=== PATIENT | male | born 1960 | race Caucasian/White ===

== ENCOUNTER → 2020-09-15 | Outpatient (CLI) | payer SELFPAY ==
[~2020-09-15] VITALS: Ht 167.6 cm; Wt 54.1 kg
[~2020-09-15] MED LIST: FEXO180T PO; IBP600T1 PO; LISI20TA2 PO; PARO40TA47 PO; PRM25T PO; RANI150T66 PO
--- NOTE | 2020-09-15 16:07 | Diagnostic Imaging Report ---
INDICATION: HEP C, LIVER DISEASE. TECHNIQUE: Multiple Real-time grayscale sonographic images were obtained of the 4 quadrants of the abdomen. CORRELATION STUDY: None. FINDINGS: Imaging of the abdomen demonstrates the presence of abdominal ascites. An area was reportedly marked in the right lower quadrant by the income tax advisor for purposes of a bedside paracentesis. No radiologist was present. IMPRESSION: Presence of abdominal ascites. Dictated by: Dictated on workstation # [id number]
[2020-09-15 16:39] LABS: AMYLASE,BODY FLUID 31 U/L; GLUCOSE,BODY FLUID 133 MG/DL; TOTAL PROTEIN,BODY FLUID 2.6 G/DL
[2020-09-15 16:49] LABS: LDH,BODY FLUID 77 U/L
[2020-09-15 17:18] LABS: BODY FLUID APPEARENCE SLIGHTLY CLOUDY; BODY FLUID COLOR PALE YELLOW; BODY FLUID SOURCE PERITON
[2020-09-15 17:19] LABS: BODY FLUID RBC COUNT 1700 /uL; BODY FLUID WBC TOTAL COUNT 1977 /uL
[2020-09-15 17:46] LABS: BF OTHER CELLS 0 %; LYMPHOCYTES,BODY FLUID 1 %
--- NOTE | 2020-09-16 01:45 | OPERATIVE REPORT ---
DATE OF SERVICE: 09/15/2020 PREOPERATIVE DIAGNOSIS: Symptomatic abdominal ascites. POSTOPERATIVE DIAGNOSIS: Symptomatic abdominal ascites. PROCEDURE: Ultrasound-guided paracentesis. SURGEON: Radha Parker DO ANESTHESIA: Local. ESTIMATED BLOOD LOSS: Scant. COMPLICATIONS: None. INDICATIONS: The patient is a 59-year-old male with liver disease and symptomatic ascites. He is having some shortness of breath and other symptoms. He wishes to have paracentesis performed. The patient understands risks and benefits of procedure and wished to proceed. Consent was signed and on the chart. DESCRIPTION OF PROCEDURE: The patient was prepped and draped in sterile fashion after ultrasound was used to isolate the best pocket for and drainage. Local anesthetic was infiltrated. An 11 blade scalpel was then used to make a small incision. The [id number] needle and catheter were then advanced through the abdominal wall until straw-colored fluid was withdrawn. The catheter was advanced, and the needle was removed. The 3050 mL of straw-colored fluid was withdrawn. The catheter was then removed, and a sterile bandage was applied. The patient tolerated procedure well without any complications. Job ID: [id number] DocumentID: [id number] Dictated Date: 09/15/2020 17:45:07 Retail Presentation Specialist Date: 09/16/2020 01:44:19 Dictated By: RADHA PARKER DO
== END ==
LOC: RAD 14:54
PROVIDERS: ATTEND Surgery
DX: B19.20 Unspecified viral hepatitis C without hepatic coma (principal)
CPT/HCPCS: 49083; 82150; 82570; 82945; 83615; 84157; 87070; 87075; 87205; 89051; A7048

== ENCOUNTER 2020-12-17 18:43 | Emergency (ER) | payer SELFPAY ==
[~2020-12-17] VITALS: Ht 170.1 cm; Wt 50.0 kg
[2020-12-17 19:00] LABS: BASOPHILS # (AUTO) 0.2 10^3/uL (0.0-0.1); BASOPHILS % (AUTO) 2 % (0-10); EOSINOPHILS # (AUTO) 0.4 10^3/uL (0.0-0.3); EOSINOPHILS % (AUTO) 4 % (0-10); HEMATOCRIT 50 % (40-54); HEMOGLOBIN 16.1 g/dL (13.3-17.7); LYMPHOCYTES # (AUTO) 2.7 10^3/uL (1.0-4.0); LYMPHOCYTES % (AUTO) 24 % (12-44); MEAN CORPUSCULAR HEMOGLOBIN 27 pg (25-34); MEAN CORPUSCULAR HGB CONC 32 g/dL (32-36); MEAN CORPUSCULAR VOLUME 82 fL (80-99); MEAN PLATELET VOLUME 10.8 fL (9.0-12.2); MONOCYTES # (AUTO) 1.2 10^3/uL (0.0-1.0); MONOCYTES % (AUTO) 11 % (0-12); NEUTROPHILS # (AUTO) 6.7 10^3/uL (1.8-7.8); NEUTROPHILS % (AUTO) 59 % (42-75); PLATELET COUNT 334 10^3/uL (130-400); WHITE BLOOD COUNT 11.3 10^3/uL (4.3-11.0)
[2020-12-17] MEDS ORDERED: ASPIRIN 81 MG CHEW (CHILDREN'S ASA) PO ONE (19:00)
--- NOTE | 2020-12-17 19:00 | ED Chest Pain ---
General Chief Complaint: Chest Pain Stated Complaint: INTERMITTENT CP AND ARM PAIN Source: patient Exam Limitations: no limitations History of Present Illness Date Seen by Provider: Dec 17, 2020 Time Seen by Provider: 18:58 Initial Comments to ER by private vehicle with reports of intermittent chest and arm pain. This particular episode began at about 6 PM and is now gone. It resolved without intervention. It was in the center of his chest sharp in nature and lasted only a few minutes. He has had a couple episodes like this over the course of the past few weeks. He cannot identify anything that brings them about or makes them go away. Each episode lasts only a few minutes. No fevers or chills. He does smoke 1/2 pack of cigarettes per day. No history of coronary disease. No nausea vomiting or shortness of breath. Timing/Duration: gone now Severity/Quality: sharp Location: central Radiation: no radiation Activities at Onset: none Allergies and Home Medications Allergies Coded Allergies: No Known Drug Allergies (Unverified , 02/06/10) Home Medications Fexofenadine Hcl 180 Mg Tablet, 180 MG PO DAILY, (Reported) Ibuprofen 600 Mg Tablet, 1 EACH PO QID PRN, (Reported) Lisinopril 20 Mg Tablet, 20 MG PO DAILY, (Reported) Paroxetine Hcl 40 Mg Tablet, 40 MG PO DAILY, (Reported) Promethazine Hcl 25 Mg Tablet, 1 TAB PO QID PRN Prescribed by: FRANCIA YIN on 02/06/102116 Ranitidine Hcl 150 Mg Tablet, 150 MG PO DAILY, (Reported) Patient Home Medication List Home Medication List Reviewed: Yes Review of Systems Review of Systems Constitutional: see HPI; No chills, No fever EENTM: No Symptoms Reported Respiratory: No Symptoms Reported Cardiovascular: See HPI, Chest Pain Gastrointestinal: No Symptoms Reported Genitourinary: No Symptoms Reported Musculoskeletal: no symptoms reported Skin: no symptoms reported Psychiatric/Neurological: No Symptoms Reported Endocrine: No Symptoms Reported Physical Exam Vital Signs Vital Signs - First Documented Capillary Refill : Height, Weight, BMI Height: '" Weight: lbs. oz. kg; 19.25 BMI Method: General Appearance: No Apparent Distress, WD/WN HEENT: PERRL/EOMI, TMs Normal Neck: Full Range of Motion, Normal Inspection Respiratory: No Accessory Muscle Use, No Respiratory Distress Gastrointestinal: Normal Bowel Sounds, Non Tender, Soft Extremity: Normal Capillary Refill, Normal Inspection Neurologic/Psychiatric: Alert, Oriented x3 Skin: Normal Color, Warm/Dry Progress/Results/Core Measures Results/Orders Lab Results Laboratory Tests Test 12/17/20 18:53 12/17/20 18:57 12/17/20 20:55 Range/Units D-Dimer 2.06 H 0.00-0.49 UG/ML White Blood Count 11.3 H 4.3-11.0 10^3/uL Red Blood Count 6.08 H 4.30-5.52 10^6/uL Hemoglobin 16.1 13.3-17.7 g/dL Hematocrit 50 40-54 % Mean Corpuscular Volume 82 80-99 fL Mean Corpuscular Hemoglobin 27 25-34 pg Mean Corpuscular Hemoglobin Concent 32 32-36 g/dL Red Cell Distribution Width 16.7 H 10.0-14.5 % Platelet Count 334 130-400 10^3/uL Mean Platelet Volume 10.8 9.0-12.2 fL Immature Granulocyte % (Auto) 1 % Neutrophils (%) (Auto) 59 42-75 % Lymphocytes (%) (Auto) 24 12-44 % Monocytes (%) (Auto) 11 0-12 % Eosinophils (%) (Auto) 4 0-10 % Basophils (%) (Auto) 2 0-10 % Neutrophils # (Auto) 6.7 1.8-7.8 10^3/uL Lymphocytes # (Auto) 2.7 1.0-4.0 10^3/uL Monocytes # (Auto) 1.2 H 0.0-1.0 10^3/uL Eosinophils # (Auto) 0.4 H 0.0-0.3 10^3/uL Basophils # (Auto) 0.2 H 0.0-0.1 10^3/uL Immature Granulocyte # (Auto) 0.1 0.0-0.1 10^3/uL Prothrombin Time 15.1 H 12.2-14.7 SEC INR Comment 1.2 0.8-1.4 Activated Partial Thromboplast Time 32 24-35 SEC Sodium Level 133 L 135-145 MMOL/L Potassium Level 4.6 3.6-5.0 MMOL/L Chloride Level 104 98-107 MMOL/L Carbon Dioxide Level 21 21-32 MMOL/L Anion Gap 8 5-14 MMOL/L Blood Urea Nitrogen 18 7-18 MG/DL Creatinine 1.36 H 0.60-1.30 MG/DL Estimat Glomerular Filtration Rate 53 BUN/Creatinine Ratio 13 Glucose Level 154 H 70-105 MG/DL Calcium Level 9.5 8.5-10.1 MG/DL Corrected Calcium 9.6 8.5-10.1 MG/DL Magnesium Level 2.2 1.6-2.4 MG/DL Total Bilirubin 0.7 0.1-1.0 MG/DL Aspartate Amino Transf (AST/SGOT) 41 H 5-34 U/L Alanine Aminotransferase (ALT/SGPT) 44 0-55 U/L Alkaline Phosphatase 147 H 40-136 U/L Myoglobin 28.3 10.0-92.0 NG/ML Troponin I < 0.028 < 0.028 <0.028 NG/ML B-Type Natriuretic Peptide 41.5 <100.0 PG/ML Total Protein 8.8 H 6.4-8.2 GM/DL Albumin 3.9 3.2-4.5 GM/DL My Orders Orders - NARINDER PEREZ OIL SCOUT Cbc With Automated Diff (12/17/20 18:49) Magnesium (12/17/20 18:49) Chest 1 View, Ap/Pa Only (12/17/20 18:49) Ekg Tracing (12/17/20 18:49) Comprehensive Metabolic Panel (12/17/20 18:49) Myoglobin Serum (12/17/20 18:49) Protime With Inr (12/17/20 18:49) Partial Thromboplastin Time (12/17/20 18:49) O2 (12/17/20 18:49) Monitor-Rhythm Ecg Trace Only (12/17/20 18:49) Lipid Panel (12/18/20 06:00) Ed Iv/Invasive Line Start (12/17/20 18:49) BNP (12/17/20 18:49) Troponin I (12/17/20 18:49) Aspirin Chewable Tablet (Baby Aspirin Ch (12/17/20 19:00) Fibrin Degradation Products (12/17/20 18:57) Lactated Ringers (Lr 1000 Ml Iv Solution (12/17/20 19:45) Ct Angio Chest W (12/17/20 19:38) Iohexol Injection (Omnipaque 350 Mg/Ml 1 (12/17/20 20:15) Received Contrast (Hold Metformin- Contr (12/17/20 20:15) Ns (Ivpb) (Sodium Chloride 0.9% Ivpb Bag (12/17/20 20:15) Troponin I (12/17/20 20:51) Medications Given in ED Current Medications Medications Dose Ordered Sig/Cresencio Route Start Time Stop Time Status Last Admin Dose Admin Aspirin 324 mg ONCE ONCE PO 12/17/20 19:00 12/17/20 19:01 DC 12/17/20 19:00 324 MG Iohexol 75 ml ONCE ONCE IV 12/17/20 20:15 12/17/20 20:16 DC 12/17/20 20:15 58 ML Sodium Chloride 100 ml ONCE ONCE IV 12/17/20 20:15 12/17/20 20:16 DC 12/17/20 20:15 80 ML Vital Signs/I&O 12/17/20 12/17/20 12/17/20 18:47 18:47 21:34 Temp 36.7 Pulse 89 76 Resp 20 20 B/P (MAP) 160/88 (112) 132/88 Pulse Ox 98 97 O2 Delivery Room Air Room Air Room Air Progress Progress Note : Progress Note NAME: [facility] REC#: [id number] PT STATUS: REG ER : 1960 PHYSICIAN: NARINDER PEREZ APRN ADMIT DATE: 12/17/20/ER Draft Date of Exam:12/17/20 CT ANGIO CHEST W Clinical indication: Patient with chest pain x 3 months. Patient states today it worsened, tonight at about 1830 hours. Patient states that it radiates to left arm and is 10/10. Exam: CT angiogram of the chest performed with 58 cc Omnipaque 350 IV contrast. Coronal and oblique MIP images of the vasculature were created to better evaluate anatomy. Auto Exposure Controls were utilized during the CT exam to meet ALARA standards for radiation dose reduction. Comparison: None. Findings: There is diffuse centrilobular emphysema. There is a 2.2 cm in greatest axial dimension bulla in the upper medial aspect of the right lower lobe. There is no lung infiltrate. There is atelectasis and/or scarring involving the posterior aspects of both lungs. There is no pleural effusion or pneumothorax. Limited visualization of thyroid gland is grossly unremarkable. Mediastinal and hilar lymph nodes are seen which are not significantly enlarged. There is no axillary lymphadenopathy. There is no evidence of pulmonary embolism. There is no thoracic aortic aneurysmal dilation. There is not enough contrast within the thoracic aorta to better evaluate it. Limited visualization of upper abdominal structures shows no significant abnormality. Bones show degenerative spurs involving the thoracic spine. Impression: 1: There is no evidence of pulmonary embolism or thoracic aortic aneurysm. 2: There is diffuse centrilobular emphysematous disease. There is a bulla involving the medial aspect of the right lower lobe. 3: There is no lung infiltrate. There is no pleural effusion or pneumothorax. Dictated on workstation # [id number] Dict: 12/17/202031 Trans: 12/17/[address] [facility] [id number] Interpreted by: KIMBERLEY PALACIOS MD Electronically signed by: Departure Communication (Admissions) EKG shows sinus rhythm rate of [address] segment changes no T wave inversion no ectopy Impression Primary Impression: Chest pain Disposition: 01 HOME, SELF-CARE Condition: Stable Departure-Patient Inst. Decision time for Depature: 21:21 Referrals: [facility] (PCP) Primary Care Physician ROLDAN LIRA APRN (Family) Primary Care Physician Patient Instructions: Chest Pain (DC) Add. Discharge Instructions: 1. Retuern to ER for any concerns 2. Follow up with your doctor next week. All discharge instructions reviewed with patient and/or family. Voiced understanding. NARINDER PEREZ APRN Dec 17, 2020 19:00
[2020-12-17 19:19] LABS: INR 1.2 (0.8-1.4); PROTHROMBIN TIME PATIENT 15.1 SEC (12.2-14.7)
[2020-12-17 19:28] LABS: ALBUMIN 3.9 GM/DL (3.2-4.5); BILIRUBIN,TOTAL 0.7 MG/DL (0.1-1.0); CALCIUM 9.5 MG/DL (8.5-10.1); CREATININE SERUM 1.36 MG/DL (0.60-1.30); MAGNESIUM 2.2 MG/DL (1.6-2.4); POTASSIUM 4.6 MMOL/L (3.6-5.0); TOTAL PROTEIN 8.8 GM/DL (6.4-8.2)
--- NOTE | 2020-12-17 19:33 | Diagnostic Imaging Report ---
INDICATION: Chest pain radiating to left arm EXAMINATION: Chest 12/17/2020 FINDINGS: Small nodularities noted in the periphery of the right upper lung, age indeterminate. Follow-up recommended. There are no infiltrates or effusions. Heart and pulmonary vasculature normal. No pneumothorax. IMPRESSION: 1. Small nodules in the right upper lung. Given no priors available for comparison, follow-up is recommended. Otherwise negative chest. Dictated by: Dictated on workstation # [id number]
[2020-12-17] MEDS ORDERED: LACTATED RINGERS 1,000 ML IV SCH (19:45)
[2020-12-17] MEDS ORDERED: HOLD METFORMIN - RECEIVED CONTRAST 20 ML VIAL IV SCH (20:15)
[2020-12-17] MEDS ORDERED: NS 100 ML (IVPB) BAG IV ONE (20:15)
[2020-12-17] MEDS ORDERED: IOHEXOL 350 MG/ML 100 ML (OMNIPAQUE 350) VIAL IV ONE (20:15)
--- NOTE | 2020-12-17 20:46 | Diagnostic Imaging Report ---
Clinical indication: Patient with chest pain x 3 months. Patient states today it worsened, tonight at about 1830 hours. Patient states that it radiates to left arm and is 10/10. Exam: CT angiogram of the chest performed with 58 cc Omnipaque 350 IV contrast. Coronal and oblique MIP images of the vasculature were created to better evaluate anatomy. Auto Exposure Controls were utilized during the CT exam to meet ALARA standards for radiation dose reduction. Comparison: None. Findings: There is diffuse centrilobular emphysema. There is a 2.2 cm in greatest axial dimension bulla in the upper medial aspect of the right lower lobe. There is no lung infiltrate. There is atelectasis and/or scarring involving the posterior aspects of both lungs. There is no pleural effusion or pneumothorax. Limited visualization of thyroid gland is grossly unremarkable. Mediastinal and hilar lymph nodes are seen which are not significantly enlarged. There is no axillary lymphadenopathy. There is no evidence of pulmonary embolism. There is no thoracic aortic aneurysmal dilation. There is not enough contrast within the thoracic aorta to better evaluate it. Limited visualization of upper abdominal structures shows no significant abnormality. Bones show degenerative spurs involving the thoracic spine. Impression: 1: There is no evidence of pulmonary embolism or thoracic aortic aneurysm. 2: There is diffuse centrilobular emphysematous disease. There is a bulla involving the medial aspect of the right lower lobe. 3: There is no lung infiltrate. There is no pleural effusion or pneumothorax. Dictated by: Dictated on workstation # [id number]
[2020-12-17 21:34] VITALS: BP 132/88
== END 2020-12-17 21:31 | disposition home or self-care (01) ==
LOC: EDUNIT# 18:43 → ER 18:44
DX: R07.9 Chest pain, unspecified (principal); F17.210 Nicotine dependence, cigarettes, uncomplicated
CPT/HCPCS: 36415; 71045; 71275; 80053; 83735; 83874; 83880; 84484; 85025; 85379; 85610; 85730

== ENCOUNTER 2021-11-25 11:54 | Inpatient (IN) | payer SELFPAY ==
[~2021-11-25] VITALS: Ht 170.2 cm; Wt 76.1 kg
[2021-11-25] MEDS ORDERED: PANTOPRAZOLE 40 MG (PROTONIX) VIAL IV ONE (12:15)
[2021-11-25] MEDS ORDERED: ONDANSETRON 4 MG/2 ML (SDV) Z0FRAN IVP ONE (12:15)
[2021-11-25 12:28] LABS: ALBUMIN 3.3 GM/DL (3.2-4.5); CHLORIDE 108 MMOL/L (98-107); POTASSIUM 4.7 MMOL/L (3.6-5.0); SODIUM 137 MMOL/L (135-145)
[2021-11-25 12:29] LABS: CALCIUM 8.5 MG/DL (8.5-10.1)
[2021-11-25 12:30] LABS: BASOPHILS # (AUTO) 0.2 10^3/uL (0.0-0.1); BASOPHILS % (AUTO) 1 % (0-10); EOSINOPHILS # (AUTO) 0.1 10^3/uL (0.0-0.3); EOSINOPHILS % (AUTO) 1 % (0-10); GLUCOSE 123 MG/DL (70-105); HEMATOCRIT 30 % (40-54); HEMOGLOBIN 9.5 g/dL (13.3-17.7); LYMPHOCYTES # (AUTO) 2.3 10^3/uL (1.0-4.0); LYMPHOCYTES % (AUTO) 18 % (12-44); MEAN CORPUSCULAR HEMOGLOBIN 30 pg (25-34); MEAN CORPUSCULAR HGB CONC 32 g/dL (32-36); MEAN CORPUSCULAR VOLUME 95 fL (80-99); MEAN PLATELET VOLUME 13.3 fL (9.0-12.2); MONOCYTES # (AUTO) 1.3 10^3/uL (0.0-1.0); MONOCYTES % (AUTO) 10 % (0-12); NEUTROPHILS # (AUTO) 8.7 10^3/uL (1.8-7.8); NEUTROPHILS % (AUTO) 69 % (42-75); PLATELET COUNT 233 10^3/uL (130-400); TOTAL PROTEIN 6.8 GM/DL (6.4-8.2); WHITE BLOOD COUNT 12.6 10^3/uL (4.3-11.0)
[2021-11-25] MEDS ORDERED: FAMOTIDINE 20MG/2ML IV (PEPCID) IVP ONE (12:30)
[2021-11-25 12:31] LABS: CARBON DIOXIDE 20 MMOL/L (21-32); SMEAR SCAN COMMENT YES
[2021-11-25 12:32] LABS: BILIRUBIN,TOTAL 0.9 MG/DL (0.1-1.0)
[2021-11-25 12:34] LABS: ALKALINE PHOSPHATASE 112 U/L (40-136); CREATININE SERUM 0.83 MG/DL (0.60-1.30); GFR ESTIMATED 99
[2021-11-25 12:35] LABS: BUN/CREATININE RATIO 65; INR 1.3 (0.8-1.4); PROTHROMBIN TIME PATIENT 16.9 SEC (12.2-14.7)
[2021-11-25 12:37] LABS: ALANINE AMINOTRANSFERASE 32 U/L (0-55); LIPASE 63 U/L (8-78)
[2021-11-25] MEDS ORDERED: LACTATED RINGERS 1,000 ML IV ONE (12:42)
--- NOTE | 2021-11-25 13:54 | ED GI ---
General Chief Complaint: Abdominal/GI Problems Stated Complaint: VOMITING BLOOD Nursing Triage Note: PT BROUGHT IN BY [facility] FROM HOME WITH COMPLAINT OF VOMITING BLOOD. STATES STARTED LAST NIGHT. HX OF LIVER DISEASE AND HEP C. STATES HAS SIMILAR EPISIDE ABOUT A YEAR AGO. Source of Information: Patient Exam Limitations: No Limitations History of Present Illness Date Seen by Provider: Nov 25, 2021 Time Seen by Provider: 12:14 Initial Comments This 61-year-old gentleman presents to the emergency room with complaints of coffee-ground emesis and mild abdominal discomfort since last night. He is hypertensive upon presentation. He has history of cirrhosis with hepatitis C and prior alcohol use. He reports alcohol cessation over the past year. He admits to recently smoking marijuana. He is unsure if he has any esophageal varices. I was not able to find any documentation of esophageal varices in either the hospital chart or the clinic chart. Allergies and Home Medications Allergies Coded Allergies: No Known Drug Allergies (Unverified , 02/06/10) Patient Home Medication List Home Medication List Reviewed: Yes Fexofenadine Hcl (Yanira) 180 Mg Tablet, 180 MG PO DAILY, (Reported) Entered as Reported by: REGIS RIVERA on 02/06/101807 Ibuprofen (Motrin) 600 Mg Tablet, 1 EACH PO QID PRN, (Reported) Entered as Reported by: REGIS RIVERA on 02/06/101807 Lisinopril (Lisinopril) 20 Mg Tablet, 20 MG PO DAILY, (Reported) Entered as Reported by: REGIS RIVERA on 02/06/101807 Paroxetine Hcl (Paxil) 40 Mg Tablet, 40 MG PO DAILY, (Reported) Entered as Reported by: REGIS RIVERA on 02/06/101807 Promethazine Hcl (Phenergan 25 Mg) 25 Mg Tablet, 1 TAB PO QID PRN Prescribed by: FRANCIA YIN on 02/06/102116 Ranitidine Hcl (Acid Pocket Assembler) 150 Mg Tablet, 150 MG PO DAILY, (Reported) Entered as Reported by: REGIS RIVERA on 02/06/101807 Review of Systems Review of Systems Constitutional: no symptoms reported EENTM: No Symptoms Reported Respiratory: No Symptoms Reported Cardiovascular: See HPI Gastrointestinal: See HPI Genitourinary: No Symptoms Reported Musculoskeletal: no symptoms reported Skin: no symptoms reported Psychiatric/Neurological: No Symptoms Reported Endocrine: No Symptoms Reported Hematologic/Lymphatic: No Symptoms Reported Past Jwznhph-[id number]-Odmmww Hx Patient Social History Tobacco Use?: Yes Tobacco type used: Cigarettes Smoking Status: Current Everyday Smoker Use of E-Cig and/or Vaping dev: No Substance use?: Yes Substance type: Marijuana Alcohol Use?: No (Quit drinking in 2020) Pt feels they are or have been: No Immunizations Up To Date First/Initial COVID19 Vaccinat: October 20, 2020 Second COVID19 Vaccination Macario: October 20, 2020 Third COVID19 Vaccination Date: October 20, 2020 Past Medical History Surgeries: No (None reported) Respiratory: No Cardiac: No Neurological: No Genitourinary: No Gastrointestinal: Yes Hepatitis (Hepatitis C), Cirrhosis Musculoskeletal: No Endocrine: No HEENT: No Cancer: No Psychosocial: No Physical Exam Vital Signs Vital Signs - First Documented 11/25/21 11:56 Temp 35.7 Pulse 103 Resp 16 B/P (MAP) 99/84 (89) Pulse Ox 97 O2 Delivery Room Air Capillary Refill : Less Than 3 Seconds Height/Weight/BMI Height: '" Weight: lbs. oz. kg; 19.00 BMI Method: General Appearance: WD/WN, no apparent distress, thin HEENT: PERRL/EOMI, normal ENT inspection Neck: normal inspection Respiratory: lungs clear, normal breath sounds, no respiratory distress Cardiovascular: regular rate, rhythm, no edema, no murmur Gastrointestinal: normal bowel sounds, soft, tenderness (Mild, generalized) Extremities: normal inspection, no pedal edema Neurologic/Psychiatric: no motor/sensory deficits, alert, normal mood/affect, oriented x 3 Skin: normal color, warm/dry Progress/Results/Core Measures Results/Orders Lab Results Laboratory Tests Test 11/25/21 12:02 Range/Units White Blood Count 12.6 H 4.3-11.0 10^3/uL Red Blood Count 3.12 L 4.30-5.52 10^6/uL Hemoglobin 9.5 L 13.3-17.7 g/dL Hematocrit 30 L 40-54 % Mean Corpuscular Volume 95 80-99 fL Mean Corpuscular Hemoglobin 30 25-34 pg Mean Corpuscular Hemoglobin Concent 32 32-36 g/dL Red Cell Distribution Width 16.1 H 10.0-14.5 % Platelet Count 233 130-400 10^3/uL Mean Platelet Volume 13.3 H 9.0-12.2 fL Immature Granulocyte % (Auto) 1 % Neutrophils (%) (Auto) 69 42-75 % Lymphocytes (%) (Auto) 18 12-44 % Monocytes (%) (Auto) 10 0-12 % Eosinophils (%) (Auto) 1 0-10 % Basophils (%) (Auto) 1 0-10 % Neutrophils # (Auto) 8.7 H 1.8-7.8 10^3/uL Lymphocytes # (Auto) 2.3 1.0-4.0 10^3/uL Monocytes # (Auto) 1.3 H 0.0-1.0 10^3/uL Eosinophils # (Auto) 0.1 0.0-0.3 10^3/uL Basophils # (Auto) 0.2 H 0.0-0.1 10^3/uL Immature Granulocyte # (Auto) 0.2 H 0.0-0.1 10^3/uL Percent Immature Platelet Fraction 10.0 H 0.0-7.6 % Prothrombin Time 16.9 H 12.2-14.7 SEC INR Comment 1.3 0.8-1.4 Sodium Level 137 135-145 MMOL/L Potassium Level 4.7 3.6-5.0 MMOL/L Chloride Level 108 H 98-107 MMOL/L Carbon Dioxide Level 20 L 21-32 MMOL/L Anion Gap 9 5-14 MMOL/L Blood Urea Nitrogen 54 H 7-18 MG/DL Creatinine 0.83 0.60-1.30 MG/DL Estimat Glomerular Filtration Rate 99 BUN/Creatinine Ratio 65 Glucose Level 123 H 70-105 MG/DL Calcium Level 8.5 8.5-10.1 MG/DL Corrected Calcium 9.1 8.5-10.1 MG/DL Total Bilirubin 0.9 0.1-1.0 MG/DL Aspartate Amino Transf (AST/SGOT) 36 H 5-34 U/L Alanine Aminotransferase (ALT/SGPT) 32 0-55 U/L Alkaline Phosphatase 112 40-136 U/L Total Protein 6.8 6.4-8.2 GM/DL Albumin 3.3 3.2-4.5 GM/DL Lipase 63 8-78 U/L Serum Alcohol < 10 <10 MG/DL Smear Scan YES My Orders Orders - SHARON NUNEZ MD Red Cells Leukocytes Reduced (11/25/21 12:14) Alcohol (11/25/21 12:14) Cbc With Automated Diff (11/25/21 12:14) Comprehensive Metabolic Panel (11/25/21 12:14) Lipase (11/25/21 12:14) Protime With Inr (11/25/21 12:14) Ua Culture If Indicated (11/25/21 12:14) Ondansetron Injection (Zofran Injectio (11/25/21 12:15) Pantoprazole Injection (Protonix Injecti (11/25/21 12:15) Famotidine Injection (Pepcid Injection) (11/25/21 12:30) Type And Screen (11/25/21 12:14) Lactated Ringers (Lr 1000 Ml Iv Solution (11/25/21 12:42) Ed Admission (Communication) (11/25/21 13:33) Medications Given in ED Current Medications Medications Dose Ordered Sig/Cresencio Route Start Time Stop Time Status Last Admin Dose Admin Famotidine 20 mg ONCE ONCE IVP 11/25/21 12:30 11/25/21 12:31 DC 11/25/21 12:41 20 MG Lactated Ringer's 1,000 ml @ STK-MED ONCE IV 11/25/21 12:42 11/25/21 12:44 DC 11/25/21 12:45 1,000 MLS/HR Ondansetron HCl 8 mg ONCE ONCE IVP 11/25/21 12:15 11/25/21 12:17 DC 11/25/21 12:41 8 MG Pantoprazole 80 mg ONCE ONCE IV 11/25/21 12:15 11/25/21 12:17 DC 11/25/21 12:42 80 MG Vital Signs/I&O 11/25/21 11:56 Temp 35.7 Pulse 103 Resp 16 B/P (MAP) 99/84 (89) Pulse Ox 97 O2 Delivery Room Air Blood Pressure Mean: 89 Progress Progress Note : Progress Note Blood pressure resuscitated to an acceptable level with 1 L of LR. He was additionally treated with Protonix 80 mg IV and Pepcid 20 mg IV for suspected gastritis and/or ulcer. Zofran was given for nausea and vomiting. I discussed the situation with Dr. Sofia. He said the nature of this bleed is more likely to be gastritis, esophagitis, and/or ulcer rather than from an esophageal varices. He is willing to admit the patient here as patient has expressed a strong desire to not be transferred. I discussed with Dr. Sutton as well who is willing to accept the patient. I discussed CODE STATUS with the patient and he is requesting full code. Departure Communication (Admissions) Time/Spoke to Admitting Phy: 13:30 Dr. Sutton Time/Spoke to Consulting Phy: 13:15 Dr. Sofia Impression Primary Impression: Upper GI bleed Additional Impressions: Hypotension Qualified Codes: I95.89 - Other hypotension; E86.1 - Hypovolemia Anemia Qualified Codes: D64.9 - Anemia, unspecified Liver cirrhosis Qualified Codes: K74.60 - Unspecified cirrhosis of liver Disposition: ADMITTED INPATIENT Condition: Stable Admissions Decision to Admit Reason: Admit from ER (General) Decision to Admit/Date: Nov 25, 2021 Time/Decision to Admit Time: 13:15 Departure-Patient Inst. Referrals: [facility] (PCP) Primary Care Physician ROLDAN LIRA APRN (Family) Primary Care Physician SHARON NUNEZ MD Nov 25, 2021 13:54
[2021-11-25 14:19] LABS: BILIRUBIN,URINE NEGATIVE (NEGATIVE); CLARITY,URINE CLEAR; COLOR,URINE YELLOW; GLUCOSE, URINE (UA) NEGATIVE (NEGATIVE); KETONES,URINE NEGATIVE (NEGATIVE); LEUKOCYTE ESTERASE ,URINE NEGATIVE (NEGATIVE); NITRITE,URINE NEGATIVE (NEGATIVE); PROTEIN,URINE NEGATIVE (NEGATIVE)
[2021-11-25 14:30] VITALS: BP 104/65
[2021-11-25] MEDS ORDERED: morphine INJ 4 MG/ML 1 ML (VIAL/SYRINGE) IV PRN (14:30)
[2021-11-25] MEDS ORDERED: ANTACID SUSP 30 ML UDC (MYLANTA) PO PRN (14:30)
[2021-11-25] MEDS ORDERED: MILK OF MAGNESIA 400 MG/5 ML 30 ML UDC PO PRN (14:30)
[2021-11-25] MEDS ORDERED: diphenhydrAMINE 50 MG/ML INJ (BENADRYL) IVP PRN (14:30)
[2021-11-25] MEDS ORDERED: polyethylene glycoL POWDER 17 GM (MIRALAX) PACK PO PRN (14:30)
[2021-11-25] MEDS ORDERED: diphenhydrAMINE 25 MG TAB (BENADRYL) PO PRN (14:30)
[2021-11-25] MEDS ORDERED: BISACODYL 10 MG SUPP (DULCOLAX) PR PRN (14:30)
[2021-11-25] MEDS ORDERED: CALCIUM CARBONATE 500 MG (TUMS) TAB.CHEW PO PRN (14:30)
[2021-11-25] MEDS ORDERED: ONDANSETRON 4 MG (ZOFRAN) ORAL DISSOLVE TAB PO PRN (14:30)
[2021-11-25] MEDS ORDERED: LACTULOSE SYRUP 10GM/15ML (ENULOSE) 30ML UDC PO PRN (14:30)
[2021-11-25] MEDS ORDERED: ACETAMINOPHEN 325 MG TABLET PO PRN (14:30)
[2021-11-25] MEDS ORDERED: LIDOCAINE UROJET 2% GEL 10 ML PKG TOP ONE (14:30)
[2021-11-25] MEDS ORDERED: ONDANSETRON 4 MG/2 ML (SDV) Z0FRAN IV PRN (14:30)
[2021-11-25] MEDS: NS IV 1000 ML 1,000 ML IV SCH (14:55)
[2021-11-25 14:59] LABS: BACTERIA,URINE NEGATIVE /HPF
[2021-11-25 15:00] VITALS: BP 96/69
[2021-11-25 15:30] VITALS: BP 103/66
--- NOTE | 2021-11-25 16:14 | CONSULTATION REPORT ---
DATE OF SERVICE: 11/25/2021 ATTENDING COSMETIC SALES ADVISOR: [facility]. HISTORY OF PRESENT ILLNESS: The patient is a 61-year-old male, who presented to the Emergency Department with coffee ground emesis as well as some mild abdominal discomfort. This gentleman does have an extensive past medical history including liver cirrhosis secondary to hepatitis C as well as alcohol abuse. He states that he quit alcohol approximately one year ago. He does smoke cigarettes and also does use THC. He does not report ever having an upper GI endoscopy before in the past. He states that the coffee ground emesis was of a small volume. There was no red blood or any hematemesis involved. Likely etiology of the coffee ground emesis is most likely due to peptic ulcer disease. The patient will be admitted and monitored and we will also proceed with an EGD on this admission. PAST MEDICAL HISTORY: Hepatitis C and alcoholic liver cirrhosis. PAST SURGICAL HISTORY: None. ALLERGIES: No known drug allergies. MEDICATIONS: Fexofenadine 100 mg daily, lisinopril 20 mg daily, paroxetine 40 mg daily, promethazine 25 mg q.i.d. p.r.n., ranitidine 150 mg daily, and ibuprofen 600 mg q.i.d. p.r.n. SOCIAL HISTORY: Positive cigarette smoke 40 pack years, positive marijuana. Previous heavy alcohol abuse, quit one year ago. FAMILY HISTORY: Noncontributory. REVIEW OF SYSTEMS: This is a well-nourished male currently in no acute distress. He is not experiencing any shortness of breath or difficulty in breathing. No chest pain, palpitations, diaphoresis. He did have an episode of nausea with coffee ground material, no hematemesis. He only had one episode. He does not report any red blood per rectum nor any dark tarry stools. No fever, chills, no recent inadvertent weight loss. All other review of systems negative. PHYSICAL EXAMINATION: VITAL SIGNS: Temperature 35.7, blood pressure 99/84, pulse 103, respirations 16, and pulse ox 97% on room air. CHEST: Scattered wheezes and rhonchi bilaterally. HEART: Regular, no murmurs. EXTREMITIES: No lower extremity edema and negative Homans sign. HEENT: No scleral icterus. NECK: No cervical lymphadenopathy. ABDOMEN: Soft, slightly distended, mild discomfort in the epigastric region. No peritoneal signs. No hernias. SKIN: Warm and dry. LABORATORY DATA: WBC 12.6, hemoglobin 9.5, hematocrit 30, platelets 233, BUN 54, creatinine 0.83, total bilirubin 0.9, and INR 1.3. ASSESSMENT AND PLAN: A 61-year-old male with a coffee ground emesis and history of hepatitis C as well as alcohol-induced liver cirrhosis. He will be admitted, placed on IV fluids, clear liquid diet as well as a PPI acid java web architect. On this admission, we will also proceed with an EGD to evaluate the cause of the upper gastrointestinal bleeding as well as the possibility of esophageal varices. If significant esophageal varices are identified, he will need to eventually see a cement contractor, who does do esophageal banding, which is the first line treatment for prevention of catastrophic esophageal bleeding. Job ID: [id number] DocumentID: [id number] Dictated Date: 11/25/2021 15:59:55 Health Services Manager Date: 11/25/2021 16:13:43 Dictated By: BANDAR GAONA MD
[2021-11-25] MEDS ORDERED: RT-ALBUTEROL SULF 2.5 MG/3 ML PRE-MIX VIAL INH PRN (16:45)
[2021-11-25] MEDS: MELATONIN 3 MG TABLET PO PRN (22:05)
[2021-11-25] MEDS: PANTOPRAZOLE 40 MG (PROTONIX) VIAL IV SCH (22:05)
[2021-11-25] MEDS: SENNOSIDES 8.6 MG (SENOKOT) TAB PO SCH (22:06)
[2021-11-25] MEDS: DOCUSATE SODIUM 100 MG (COLACE) CAP PO SCH (22:06)
[2021-11-25 23:57] LABS: HEMOGLOBIN 6.7 g/dL (13.3-17.7)
[2021-11-26] MEDS ORDERED: NS IV 500 ML 500 ML IV SCH (00:15)
[2021-11-26 00:44] VITALS: BP 101/64
[2021-11-26 01:01] VITALS: BP 109/57
[2021-11-26 05:44] LABS: BASOPHILS # (AUTO) 0.2 10^3/uL (0.0-0.1); BASOPHILS % (AUTO) 1 % (0-10); EOSINOPHILS % (AUTO) 0 % (0-10); HEMATOCRIT 24 % (40-54); HEMOGLOBIN 7.9 g/dL (13.3-17.7); LYMPHOCYTES # (AUTO) 1.8 10^3/uL (1.0-4.0); LYMPHOCYTES % (AUTO) 12 % (12-44); MEAN CORPUSCULAR HEMOGLOBIN 31 pg (25-34); MEAN CORPUSCULAR HGB CONC 34 g/dL (32-36); MEAN CORPUSCULAR VOLUME 92 fL (80-99); MONOCYTES # (AUTO) 1.1 10^3/uL (0.0-1.0); MONOCYTES % (AUTO) 7 % (0-12); NEUTROPHILS % (AUTO) 79 % (42-75); PLATELET COUNT 189 10^3/uL (130-400); WHITE BLOOD COUNT 15.3 10^3/uL (4.3-11.0)
[2021-11-26] MEDS: NS IV 1000 ML 1,000 ML IV SCH ×2 (05:45→07:49)
[2021-11-26 05:46] LABS: ALBUMIN 2.7 GM/DL (3.2-4.5)
[2021-11-26 05:47] LABS: POTASSIUM 4.5 MMOL/L (3.6-5.0)
[2021-11-26 05:49] LABS: TOTAL PROTEIN 5.5 GM/DL (6.4-8.2)
[2021-11-26 05:51] LABS: BILIRUBIN,TOTAL 0.8 MG/DL (0.1-1.0)
[2021-11-26 05:52] LABS: CREATININE SERUM 0.91 MG/DL (0.60-1.30)
--- NOTE | 2021-11-26 06:00 | History & Physical-Hospitalist ---
History of Present Illness HPI/Chief Complaint Chief complaint: Hematemesis History of present illness: This is a 61-year-old male known alcoholic with cirrhosis and questionable esophageal varices who presented to the ER with hematemesis and anemia. 2 units were crossed and held and he received 1 unit this morning. Currently he is doing better no more hematemesis and proton pump inhibitor maintained. Dr. GAONA will perform EGD tomorrow. Alcohol withdrawal protocol maintained. Source: patient Exam Limitations: clinical condition Date Seen 11/26/21 Time Seen by a Provider: 09:00 Attending Physician [place] PCP Admitting Physician: Juliette Sutton DO Attending Physician: Juliette Sutton DO Referring Physician Date of Admission Nov 25, 2021 at 13:34 Home Medications & Allergies Home Medications Reviewed patient Home Medication Reconciliation performed by pharmacy medication reconciliations fleet technician and/or nursing. Patients Allergies have been reviewed. Allergies Allergies Coded Allergies No Known Drug Allergies (Unverified02/06/10) Past Pyctykw-Fkqsdn-Xewwqb Hx Patient Social History Marrital Status: single Employed/Student: unemployed Tobacco Use?: Yes Tobacco type used: Cigarettes Smoking Status: Current Everyday Smoker Smokeless Tobacco Frequency: Never a User Use of E-Cig and/or Vaping dev: No Substance use?: No Substance type: Marijuana Alcohol Use?: Yes Additional Alcohol Comments: PAST HX Pt feels they are or have been: No Immunizations Up To Date First/Initial COVID19 Vaccinat: October 20, 2020 Second COVID19 Vaccination Macario: October 20, 2020 Tetanus Booster (TDap): Less Than 5 Years Current Status Advance Directives: No Communicates: Verbally Primary Language: German Preferred Spoken Language: German Is interpretation needed?: No Past Medical History Hepatitis (Hepatitis C), Cirrhosis Review of Systems Constitutional: see HPI, malaise, weakness Gastrointestinal: hematemesis, melena Physical Exam Physical Exam Vital Signs Vital Signs - First Documented 11/25/21 11:56 Temp 35.7 Pulse 103 Resp 16 B/P (MAP) 99/84 (89) Pulse Ox 97 O2 Delivery Room Air Capillary Refill : Less Than 3 Seconds Height, Weight, BMI Height: '" Weight: lbs. oz. kg; 19.40 BMI Method: General Appearance: No Apparent Distress, Chronically ill Eyes: Right Eye Normal Inspection, Right Eye PERRL HEENT: PERRL/EOMI, Normal ENT Inspection, Pharynx Normal, Moist Mucous Membranes Neck: Full Range of Motion, Normal Inspection, Non Tender Respiratory: Chest Non Tender, Lungs Clear, Normal Breath Sounds, No Accessory Muscle Use, No Respiratory Distress Cardiovascular: Regular Rate, Rhythm, No Edema, No Gallop, No JVD, No Murmur, Normal Peripheral Pulses Gastrointestinal: Normal Bowel Sounds, No Organomegaly, No Pulsatile Mass, Non Tender, Soft Back: Normal Inspection, No CVA Tenderness, No Vertebral Tenderness Extremity: Normal Capillary Refill, Normal Inspection, Normal Range of Motion, Non Tender, No Calf Tenderness, No Pedal Edema Neurologic/Psychiatric: Alert, Oriented x3, No Motor/Sensory Deficits, Normal Mood/Affect Skin: Normal Color, Warm/Dry Lymphatic: No Adenopathy Results Results/Procedures Labs Laboratory Tests 11/25/21 12:02 11/25/21 23:50 11/26/21 05:05 11/26/21 11:50 Patient resulted labs reviewed. Assessment/Plan Admission Diagnosis Assessment: Hematemesis Severe anemia requiring transfusion Tachycardia Mild hypotension Known cirrhosis Presumed esophageal varices Plan: Transfuse as needed Appreciate general surgery Admission Status: Observation Diagnosis/Problems Diagnosis/Problems (1) Upper GI bleed (2) Liver cirrhosis Status: Acute Qualifiers: Hepatic cirrhosis type: unspecified hepatic cirrhosis Ascites presence: without ascites Qualified Codes: K74.60 - Unspecified cirrhosis of liver Clinical Quality Measures DVT/VTE Risk/Contraindication: Contraindications-Pharm: Other *list below* Other: JULIETTE Serrano DO Nov 26, 2021 06:00
[2021-11-26 06:10] LABS: BASOPHILS % (MANUAL) 1 %; LYMPHOCYTES % (MANUAL) 10 %; METAMYELOCYTES % 1 %; MONOCYTES % (MANUAL) 6 %; NEUTROPHILS % (MANUAL) 82 %
[2021-11-26 06:11] LABS: ANISOCYTOSIS SLIGHT; MICROCYTOSIS SLIGHT; PLATELET CLUMPS NONE SEEN; PLATELET ESTIMATE DECREASED; POLYCHROMASIA SLIGHT
[2021-11-26] MEDS: SENNOSIDES 8.6 MG (SENOKOT) TAB PO SCH ×2 (07:49→20:59)
[2021-11-26] MEDS: PANTOPRAZOLE 40 MG (PROTONIX) VIAL IV SCH ×2 (07:49→20:59)
[2021-11-26] MEDS: DOCUSATE SODIUM 100 MG (COLACE) CAP PO SCH ×2 (07:49→20:59)
[2021-11-26 08:00] VITALS: BP 114/56
--- NOTE | 2021-11-26 11:11 | Progress Note ---
Subjective Date Seen by a Provider: Nov 26, 2021 Time Seen by a Provider: 10:30 Subjective/Events-last exam doing ok. no episodes nausea/vomiting. no BM. hb decrease however may be dilutional. pt given PRBC. Objective Exam Vital Signs Date Time Temp Pulse Resp B/P (MAP) Pulse Ox O2 Delivery O2 Flow Rate FiO2 11/26/21 09:00 99 Room Air 11/26/21 08:00 36.4 89 114/56 (75) 100 Room Air 11/26/21 07:53 Room Air 11/26/21 07:00 82 11/26/21 05:49 99 Room Air 11/26/21 04:00 36.4 11/26/21 01:01 36.1 113 18 109/57 100 Room Air 11/26/21 01:00 120 11/26/21 00:44 36.1 121 18 101/64 100 Room Air 11/26/21 00:00 36.6 11/25/21 21:00 99 Room Air 11/25/21 20:00 36.6 11/25/21 19:00 95 11/25/21 15:30 85 22 103/66 (85) 98 11/25/21 15:00 99 24 96/69 (75) 100 Room Air 11/25/21 14:43 88 11/25/21 14:30 36.4 85 24 104/65 (82) 97 Room Air 11/25/21 14:29 99 Room Air 11/25/21 14:10 74 24 106/60 99 Room Air 11/25/21 11:56 35.7 103 16 99/84 (89) 97 Room Air I & O 11/26/21 07:00 Intake Total 1425 ml Output Total 900 ml Balance 525 ml Capillary Refill : Less Than 3 Seconds General Appearance: No Apparent Distress HEENT: PERRL/EOMI Neck: Full Range of Motion Respiratory: Decreased Breath Sounds, Wheezing Cardiovascular: Regular Rate, Rhythm Gastrointestinal: normal bowel sounds, non tender, soft Extremity: Normal Capillary Refill Neurologic/Psychiatric: Alert, Oriented x3 Skin: Normal Color Lymphatic: No Adenopathy Results Lab Laboratory Tests 11/25/21 12:02: White Blood Count 12.6H, Red Blood Count 3.12L, Hemoglobin 9.5L, Hematocrit 30L, Mean Corpuscular Volume 95, Mean Corpuscular Hemoglobin 30, Mean Corpuscular Hemoglobin Concent 32, Red Cell Distribution Width 16.1H, Platelet Count 233, Mean Platelet Volume 13.3H, Immature Granulocyte % (Auto) 1, Neutrophils (%) (A uto) 69, Lymphocytes (%) (Auto) 18, Monocytes (%) (Auto) 10, Eosinophils (%) (Auto) 1, Basophils (%) (Auto) 1, Neutrophils # (Auto) 8.7H, Lymphocytes # (Auto) 2.3, Monocytes # (Auto) 1.3H, Eosinophils # (Auto) 0.1, Basophils # (Auto) 0.2H, Immature Granulocyte # (Auto) 0.2H, Percent Immature Platelet Fraction 10.0H, Prothrombin Time 16.9H, INR Comment 1.3, Sodium Level 137, Potassium Level 4.7, Chloride Level 108H, Carbon Dioxide Level 20L, Anion Gap 9, Blood Urea Nitrogen 54H, Creatinine 0.83, Estimat Glomerular Filtration Rate 99, BUN/Creatinine Ratio 65, Glucose Level 123H, Calcium Level 8.5, Corrected Calcium 9.1, Total Bilirubin 0.9, Aspartate Amino Transf (AST/SGOT) 36H, Alanine Aminotransferase (ALT/SGPT) 32, Alkaline Phosphatase 112, Total Protein 6.8, Albumin 3.3, Lipase 63, Serum Alcohol < 10, Smear Scan YES 11/25/21 14:13: Urine Color YELLOW, Urine Clarity CLEAR, Urine pH 6.0, Urine Specific [place] <=1.005, Urine Protein NEGATIVE, Urine Glucose (UA) NEGATIVE, Urine Ketones NEGATIVE, Urine Nitrite NEGATIVE, Urine Bilirubin NEGATIVE, Urine Urobilinogen 0.2, Urine Leukocyte Esterase NEGATIVE, Urine RBC (Auto) NEGATIVE, Urine RBC NONE, Urine WBC NONE, Urine Crystals NONE, Urine Bacteria NEGATIVE, Urine Casts NONE, Urine Mucus NEGATIVE, Urine Culture Indicated NO 11/25/21 23:50: Hemoglobin 6.7#*L, Hematocrit 20*L 11/26/21 05:05: White Blood Count 15.3H, Red Blood Count 2.55L, Hemoglobin 7.9L, Hematocrit 24L, Mean Corpuscular Volume 92, Mean Corpuscular Hemoglobin 31, Mean Corpuscular Hemoglobin Concent 34, Red Cell Distribution Width 15.9H, Platelet Count 189, Mean Platelet Volume 13.0H, Immature Granulocyte % (Auto) 1, Neutrophils (%) (Auto) 79H, Lymphocytes (%) (Auto) 12, Monocytes (%) (Auto) 7, Eosinophils (%) (Auto) 0, Basophils (%) (Auto) 1, Neutrophils # (Auto) 12.0H, Lymphocytes # (Auto) 1.8, Monocytes # (Auto) 1.1H, Eosinophils # (Auto) 0.0, Basophils # (Auto) 0.2H, Immature Granulocyte # (Auto) 0.2H, Sodium Level 138, Potassium Level 4.5, Chloride Level 112H, Carbon Dioxide Level 19L, Anion Gap 7, Blood Urea Nitrogen 42H, Creatinine 0.91, Estimat Glomerular Filtration Rate 95, BUN/Creatinine Ratio 46, Glucose Level 124H, Calcium Level 8.0L, Corrected Ca lcium 9.0, Total Bilirubin 0.8, Aspartate Amino Transf (AST/SGOT) 32, Alanine Aminotransferase (ALT/SGPT) 24, Alkaline Phosphatase 84, Total Protein 5.5L, Albumin 2.7L, Neutrophils % (Manual) 82, Lymphocytes % (Manual) 10, Monocytes % (Manual) 6, Basophils % (Manual) 1, Metamyelocytes % 1, Smudge Cells SLIGHT, Platelet Estimate DECREASED, Clumped Platelets NONE SEEN, Polychromasia SLIGHT, Anisocytosis SLIGHT, Microcytosis SLIGHT Assessment/Plan Assessment/Plan Assess & Plan/Chief Complaint UGIB with hx liver cirrhosis and anemia. PPI bid. EGD tomorrow. Clinical Quality Measures DVT/VTE Risk/Contraindication: Contraindications-Pharm: Other *list below* Other: BANDAR Cho MD Nov 26, 2021 11:11
[2021-11-26 11:47] VITALS: BP 110/50
[2021-11-26 12:00] LABS: HEMOGLOBIN 7.6 g/dL (13.3-17.7)
--- NOTE | 2021-11-26 12:42 | Progress Note-Pre Operative ---
Pre-Operative Progress Note H&P Reviewed The H&P was reviewed, patient examined and no changes noted. Date Seen by Provider: Nov 26, 2021 Time Seen by Provider: 12:40 Date H&P Reviewed: Nov 26, 2021 Time H&P Reviewed: 12:40 Pre-Operative Diagnosis: upper GI bleed with hx liver cirrhosis BANDAR GAONA MD Nov 26, 2021 12:42
[2021-11-26] MEDS ORDERED: 1/2 NS IV SOLUTION 1,000 ML IV PRN (16:00)
[2021-11-26] MEDS ORDERED: LORazepam INJ 2 MG/ML (ATIVAN) VIAL IM/IV PRN (16:00)
[2021-11-26] MEDS ORDERED: LORazepam INJ 2 MG/ML (ATIVAN) VIAL IV PRN (16:00)
[2021-11-26] MEDS ORDERED: D5 1/2 NS 1000 ML IV SOLUTION 1,000 ML IV PRN (16:00)
[2021-11-26 16:08] VITALS: BP 100/59
[2021-11-26] MEDS: LORazepam 1 MG (ATIVAN) TAB PO PRN (16:17)
[2021-11-26 20:09] VITALS: BP 97/67
[2021-11-26] MEDS: MAGNESIUM OXIDE (MAG-OX)400 MG TAB PO SCH (20:59)
[2021-11-27] VITALS (12 sets, daily range): BP systolic 89–104; BP diastolic 51–62
[2021-11-27 06:11] LABS: BASOPHILS % (AUTO) 1 % (0-10); MONOCYTES % (AUTO) 11 % (0-12)
[2021-11-27 06:13] LABS: BASOPHILS # (AUTO) 0.1 10^3/uL (0.0-0.1); EOSINOPHILS # (AUTO) 0.4 10^3/uL (0.0-0.3); EOSINOPHILS % (AUTO) 3 % (0-10); LYMPHOCYTES # (AUTO) 1.6 10^3/uL (1.0-4.0); LYMPHOCYTES % (AUTO) 13 % (12-44); MEAN CORPUSCULAR HEMOGLOBIN 31 pg (25-34); MEAN CORPUSCULAR HGB CONC 33 g/dL (32-36); MEAN CORPUSCULAR VOLUME 94 fL (80-99); MEAN PLATELET VOLUME 13.3 fL (9.0-12.2); MONOCYTES # (AUTO) 1.4 10^3/uL (0.0-1.0); NEUTROPHILS % (AUTO) 71 % (42-75); PLATELET COUNT 159 10^3/uL (130-400); WHITE BLOOD COUNT 12.6 10^3/uL (4.3-11.0)
[2021-11-27 06:15] LABS: HEMOGLOBIN 6.4 g/dL (13.3-17.7)
[2021-11-27 06:16] LABS: HEMATOCRIT 19 % (40-54)
[2021-11-27 06:23] LABS: ALBUMIN 2.6 GM/DL (3.2-4.5)
[2021-11-27 06:25] LABS: CALCIUM 7.7 MG/DL (8.5-10.1)
[2021-11-27 06:26] LABS: TOTAL PROTEIN 5.2 GM/DL (6.4-8.2)
[2021-11-27 06:28] LABS: BILIRUBIN,TOTAL 0.7 MG/DL (0.1-1.0)
[2021-11-27 06:30] LABS: CREATININE SERUM 0.84 MG/DL (0.60-1.30)
[2021-11-27] MEDS ORDERED: NS IV 500 ML 500 ML ONE (06:34)
--- NOTE | 2021-11-27 07:00 | Progress Note - Hospitalist ---
Subjective HPI/CC On Admission Date Seen by Provider: Nov 27, 2021 Time Seen by Provider: 10:00 Chief complaint: Hematemesis History of present illness: This is a 61-year-old male known alcoholic with cirrhosis and questionable esophageal varices who presented to the ER with hematemesis and anemia. 2 units were crossed and held and he received 1 unit this morning. Currently he is doing better no more hematemesis and proton pump inhibitor maintained. Dr. GAONA will perform EGD tomorrow. Alcohol withdrawal protocol maintained. Subjective/Events-last exam Patient undergoing EGD Transfusion initiated today Alcohol withdrawal protocol initiated Objective Exam Vital Signs Vital Signs Date Time Temp Pulse Resp B/P (MAP) Pulse Ox O2 Delivery O2 Flow Rate FiO2 11/27/21 15:43 36.3 79 18 104/62 (76) 97 Room Air 11/27/21 12:00 10 Capillary Refill : Less Than 3 Seconds General Appearance: Chronically ill Results/Procedures Lab Laboratory Tests 11/27/21 05:29 Patient resulted labs reviewed. Assessment/Plan Assessment and Plan Assess & Plan/Chief Complaint Assessment: Hematemesis Severe anemia requiring transfusion Tachycardia Mild hypotension Known cirrhosis Presumed esophageal varices Plan: Transfuse as needed Appreciate general surgery 11/27/2021: Appreciate Dr. Gaona Await EGD findings Diagnosis/Problems Diagnosis/Problems (1) Upper GI bleed (2) Liver cirrhosis Status: Acute Qualifiers: Hepatic cirrhosis type: unspecified hepatic cirrhosis Ascites presence: without ascites Qualified Codes: K74.60 - Unspecified cirrhosis of liver Clinical Quality Measures DVT/VTE Risk/Contraindication: Contraindications-Pharm: Other *list below* Other: CAROL Serrano DO Nov 27, 2021 07:00
[2021-11-27] MEDS: THIAMINE 100 MG (VITAMIN B-1) TAB PO SCH (07:02)
[2021-11-27] MEDS: MULTIVIT W/MINERALS TAB (THERAGRAN M) PO SCH (07:02)
[2021-11-27] MEDS: PANTOPRAZOLE 40 MG (PROTONIX) VIAL IV SCH ×2 (09:46→20:45)
[2021-11-27] MEDS: FOLIC ACID 1 MG TAB PO SCH (09:46)
[2021-11-27] MEDS: MAGNESIUM OXIDE (MAG-OX)400 MG TAB PO SCH ×2 (09:46→20:45)
[2021-11-27] MEDS: DOCUSATE SODIUM 100 MG (COLACE) CAP PO SCH ×2 (09:46→21:00)
[2021-11-27] MEDS: SENNOSIDES 8.6 MG (SENOKOT) TAB PO SCH ×2 (09:46→21:00)
[2021-11-27] MEDS ORDERED: PROPOFOL INJECTION 50 ML IV ONE (11:27)
[2021-11-27] MEDS ORDERED: LACTATED RINGERS 1,000 ML IV ONE (11:29)
[2021-11-27] MEDS ORDERED: LACTATED RINGERS 1,000 ML IV STA (11:31)
[2021-11-27] MEDS ORDERED: HURRICAINE EXT TUBE (BENZOCAINE) ONE (11:34)
[2021-11-27] MEDS ORDERED: LIDOCAINE JELLY 2% 6 ML SYRINGE ONE (11:37)
[2021-11-27] MEDS ORDERED: LIDOCAINE JELLY 2% 6 ML SYRINGE TOP ONE (11:45)
[2021-11-27] MEDS ORDERED: HURRICAINE EXT TUBE (BENZOCAINE) XX PRN (11:45)
--- NOTE | 2021-11-27 12:04 | Progress Note-Post Operative ---
Post-Operative Progess Note Surgeon (s)/Butting Saw Operator (s) Surgeon BANDAR GAONA MD Butting Saw Operator: none Pre-Operative Diagnosis upper GI bleed with hx liver cirrhosis Post-Operative Diagnosis grade 2 esophageal varices with no active bleed, reflux esophagitis(grade C), small HH(2.5cm), severe gastritis, no active bleed Procedure & Operative Findings Date of Procedure 11/27/21 Procedure Performed/Findings EGD with bx. Anesthesia Type mac Estimated Blood Loss Estimated blood loss (mL): minimal Specimens/Packing Specimens Removed antrum BANDAR GAONA MD Nov 27, 2021 12:04
[2021-11-27] MEDS: LORazepam 1 MG (ATIVAN) TAB PO PRN (13:39)
--- NOTE | 2021-11-27 14:10 | Anesthesia-General Post-Op ---
MAC Patient Condition Mental Status/LOC: Same as Preop Cardiovascular: Satisfactory Nausea/Vomiting: Absent Respiratory: Satisfactory Pain: Controlled Complications: Absent Post Op Complications Complications None Follow Up Care/Instructions Patient Instructions None needed. Anesthesiology Discharge Order Discharge Order Patient is doing well, no complaints, stable vital signs, no apparent adverse anesthesia problems. No complications reported per nursing. IKER MARSHALL CRNA Nov 27, 2021 14:10
--- NOTE | 2021-11-27 19:52 | OPERATIVE REPORT ---
DATE OF SERVICE: 11/27/2021 ADMITTING PHYSICIAN: Dr. Sutton. PREOPERATIVE DIAGNOSES: Coffee ground emesis, anemia, history of alcoholic and hepatitis C, liver cirrhosis. POSTOPERATIVE DIAGNOSES: Grade II esophageal varices, no active bleeding. Reflux esophagitis grade C, small hiatal hernia 2.5 cm in size, severe gastritis, no active bleeding. PROCEDURE: EGD with biopsy. SURGEON: Bandar Gaona MD ANESTHESIA: Monitored anesthesia care. ESTIMATED BLOOD LOSS: Minimal. FINDINGS: Grade II esophageal varices, no active bleeding. Reflux esophagitis grade C, small hiatal hernia 2.5 cm in size, severe gastritis, no active bleeding. DISPOSITION: The patient tolerated the procedure well. INDICATIONS: The patient is a 61-year-old male who presented with nausea, vomiting as well as coffee ground emesis. He was found to be slightly anemic with a hemoglobin around 9. He has a known history of alcoholic as well as hepatitis C, liver cirrhosis. He does not report any known red blood per rectum as well as no dark tarry stools. DESCRIPTION OF PROCEDURE: The patient was brought to the endoscopy suite, laid in the left lateral decubitus position. After adequate IV pain and sedative medications and monitored anesthesia care, the mouthpiece was applied. The endoscope was placed in the mouth, visualizing the pharynx and hypopharyngeal region. Vocal cords, epiglottis and vallecula identified and appeared to be normal. The endoscope was then gently intubated at the esophageal opening and esophagus insufflated. The endoscope was then advanced through the first, second and third portion of esophagus. At the distal esophagus, grade II esophageal varices less than third of the diameter of the esophagus were identified, which were not actively bleeding. A reflux esophagitis Hiller grade C was identified. The endoscope was then advanced in the stomach and endoscope retroflexed, visualizing a small hiatal hernia approximately 2.5 cm in size. There was a severe gastritis; however, no formal ulcerations, polyps, or any active bleeding identified. A biopsy was taken of the antrum to rule out H. pylori with visualization of good hemostasis. Endoscope was then advanced to the pylorus and the first and second portion of the duodenum with a moderate duodenitis also identified; however, no ulcers or any active bleeding. The endoscope was then slowly withdrawn while taking a second look and suctioning of residual air with no additional findings. The patient tolerated the procedure well. He is likely anemic due to his chronic disease; however, also due to his gastritis, which is being treated with IV PPI, which he will also need to continue in a oral form as an outpatient. He currently does have grade II esophageal varices and at some point will likely need further evaluation and treatment, which would include esophageal banding to prevent catastrophic bleeding. Job ID: [id number] DocumentID: [id number] Dictated Date: 11/27/2021 11:56:10 Plant Senior Manager Date: 11/27/2021 19:52:21 Dictated By: BANDAR GAONA MD MTDD
[2021-11-27] MEDS: MELATONIN 3 MG TABLET PO PRN (20:51)
[2021-11-28] VITALS: BP 91/50
[2021-11-28 04:29] VITALS: BP 90/56
[2021-11-28] MEDS: THIAMINE 100 MG (VITAMIN B-1) TAB PO SCH (05:48)
[2021-11-28] MEDS: MULTIVIT W/MINERALS TAB (THERAGRAN M) PO SCH (05:48)
[2021-11-28 06:09] LABS: BASOPHILS # (AUTO) 0.1 10^3/uL (0.0-0.1); BASOPHILS % (AUTO) 1 % (0-10); EOSINOPHILS # (AUTO) 0.5 10^3/uL (0.0-0.3); EOSINOPHILS % (AUTO) 5 % (0-10); HEMATOCRIT 25 % (40-54); HEMOGLOBIN 8.4 g/dL (13.3-17.7); LYMPHOCYTES # (AUTO) 1.8 10^3/uL (1.0-4.0); LYMPHOCYTES % (AUTO) 17 % (12-44); MEAN CORPUSCULAR HEMOGLOBIN 31 pg (25-34); MEAN CORPUSCULAR HGB CONC 33 g/dL (32-36); MEAN CORPUSCULAR VOLUME 93 fL (80-99); MEAN PLATELET VOLUME 11.9 fL (9.0-12.2); MONOCYTES # (AUTO) 1.3 10^3/uL (0.0-1.0); MONOCYTES % (AUTO) 12 % (0-12); NEUTROPHILS # (AUTO) 6.9 10^3/uL (1.8-7.8); NEUTROPHILS % (AUTO) 65 % (42-75); PLATELET COUNT 157 10^3/uL (130-400); WHITE BLOOD COUNT 10.7 10^3/uL (4.3-11.0)
[2021-11-28 06:20] LABS: ALBUMIN 2.7 GM/DL (3.2-4.5); POTASSIUM 3.8 MMOL/L (3.6-5.0)
[2021-11-28 06:21] LABS: CALCIUM 7.8 MG/DL (8.5-10.1)
[2021-11-28 06:23] LABS: TOTAL PROTEIN 5.6 GM/DL (6.4-8.2)
[2021-11-28 06:24] LABS: BILIRUBIN,TOTAL 0.8 MG/DL (0.1-1.0)
[2021-11-28 06:26] LABS: CREATININE SERUM 0.95 MG/DL (0.60-1.30)
[2021-11-28 07:15] VITALS: BP 109/61
[2021-11-28] MEDS: PANTOPRAZOLE 40 MG (PROTONIX) VIAL IV SCH (08:28)
[2021-11-28] MEDS: MAGNESIUM OXIDE (MAG-OX)400 MG TAB PO SCH (08:29)
[2021-11-28] MEDS: FOLIC ACID 1 MG TAB PO SCH (08:29)
[2021-11-28] MEDS: DOCUSATE SODIUM 100 MG (COLACE) CAP PO SCH (08:32)
[2021-11-28] MEDS: SENNOSIDES 8.6 MG (SENOKOT) TAB PO SCH (08:32)
[2021-11-28] MEDS ORDERED: NICOTINE PATCH REMOVAL TP SCH (08:59)
[2021-11-28] MEDS ORDERED: NICOTINE 21 MG (NICODERM) PATCH TD SCH (09:00)
[2021-11-28] MEDS ORDERED: PANT40TA52 PO (10:15)
[2021-11-28] MEDS ORDERED: SPIR100T4 PO (10:15)
[2021-11-28] MEDS ORDERED: NF-RIFA200 PO (10:16)
[2021-11-28] MEDS ORDERED: ACET-2267 PO (10:16)
[2021-11-28 11:50] VITALS: BP 102/59
[2021-11-28 12:44] LABS: HEMOGLOBIN 9.1 g/dL (13.3-17.7)
--- NOTE | 2021-11-28 13:41 | Discharge Summary ---
Discharge Summary Hospital Course Hospital Course Date of Admission: Nov 25, 2021 at 13:34 Admission Diagnosis : GI bleeding Cirrhosis Hep C [facility] [place] Date of Discharge: 11/28/21 Discharge Diagnosis: Gastritis Esophageal varices Hospital Course: Pt admitted and received transfusion for anemia with upper GI bleeding. He had EGD done which showed no active bleeding, but severe gastritis and grade 2 esophageal varices. He had stable hemoglobin and requested discharge, reported he had not been taking PPI at home, instructed to resume. Did not start nonselective beta dl for varices due to low BP. Labs and Pending Lab Test: Laboratory Tests 11/28/21 06:01: White Blood Count 10.7, Red Blood Count 2.70L, Hemoglobin 8.4#L, Hematocrit 25L, Mean Corpuscular Volume 93, Mean Corpuscular Hemoglobin 31, Mean Corpuscular Hemoglobin Concent 33, Red Cell Distribution Width 17.1H, Platelet Count 157, Mean Platelet Volume 11.9, Immature Granulocyte % (Auto) 1, Neutrophils (%) (Auto) 65, Lymphocytes (%) (Auto) 17, Monocytes (%) (Auto) 12, Eosinophils (%) (Auto) 5, Basophils (%) (Auto) 1, Neutrophils # (Auto) 6.9, Lymphocytes # (Auto) 1.8, Monocytes # (Auto) 1.3H, Eosinophils # (Auto) 0.5H, Basophils # (Auto) 0.1, Immature Granulocyte # (Auto) 0.2H, Sodium Level 136, Potassium Level 3.8, Chloride Level 107, Carbon Dioxide Level 22, Anion Gap 7, Blood Urea Nitrogen 23H, Creatinine 0.95, Estimat Glomerular Filtration Rate 90, BUN/Creatinine Ratio 24, Glucose Level 107H, Calcium Level 7.8L, Corrected Calcium 8.8, Total Bilirubin 0.8, Aspartate Amino Transf (AST/SGOT) 30, Alanine Aminotransferase (ALT/SGPT) 22, Alkaline Phosphatase 79, Total Protein 5.6L, Albumin 2.7L 11/28/21 12:35: Hemoglobin 9.1L, Hematocrit 28L Home Meds Active Reported Tylenol Extra Strength (Acetaminophen) 500 Mg Tablet 500 Mg PO Q8H PRN Xifaxan (Rifaximin) 200 Mg Tablet 600 Mg PO BID TAKES 3 (200MG) TABS Spironolactone 100 Mg Tablet 100 Mg PO DAILY Pantoprazole Sodium 40 Mg Tablet.dr 40 Mg PO DAILY Assessment/Pt DC Instructions Follow up with Dr. Garcia within a week of discharge Discharge Diet: No Restrictions Activity as Tolerated: Yes Discharge Physical Examination Allergies: Coded Allergies: No Known Drug Allergies (Unverified , 02/06/10) General Appearance: No Apparent Distress Respiratory: Lungs Clear, Normal Breath Sounds Cardiovascular: Regular Rate, Rhythm, No Murmur Gastrointestinal: Normal Bowel Sounds, Non Tender, Soft Neurologic/Psychiatric: Alert, Depressed Affect Clinical Quality Measures DVT/VTE Risk/Contraindication: Contraindications-Pharm: Other *list below* Other: TRACIE Orozco MD Nov 28, 2021 13:41
--- NOTE | 2021-11-28 13:47 | Discharge Summary ---
Discharge [facility] Discharge Medications Continued Medications: Acetaminophen (Tylenol Extra Strength) 500 Mg Tablet 500 MG PO Q8H PRN for PAIN-MILD (1-4), TAB Pantoprazole Sodium (Pantoprazole Sodium) 40 Mg Tablet.dr 40 MG PO DAILY, TAB Rifaximin (Xifaxan) 200 Mg Tablet 600 MG PO BID, TAB TAKES 3 (200MG) TABS Spironolactone (Spironolactone) 100 Mg Tablet 100 MG PO DAILY, TAB Patient Instructions Goal/Follow Up Appt: Follow up with Dr. Garcia within a week of discharge. Return to The Hospital For: Dizziness, vomiting blood, shortness of breath, confusion Activity & Diet Discharge Diet: No Restrictions Activity as Tolerated: Yes TRACIE VYAS MD Nov 28, 2021 13:46
[2021-11-28 15:34] VITALS: BP 102/59
--- NOTE | 2021-11-28 15:42 | Progress Note ---
Subjective Date Seen by a Provider: Nov 28, 2021 Time Seen by a Provider: 15:25 Subjective/Events-last exam Patient seen with Dr. Sofia. Patient reports doing well. Denies any heartburn or reflux. Tolerating diet. Objective Exam Vital Signs Date Time Temp Pulse Resp B/P (MAP) Pulse Ox O2 Delivery O2 Flow Rate FiO2 11/28/21 15:34 37.0 82 18 102/59 97 Room Air 11/28/21 11:50 37.0 82 18 102/59 (73) 97 Room Air 11/28/21 09:00 Room Air 11/28/21 07:15 37.1 78 20 109/61 (77) 96 Room Air 11/28/21 04:29 37.2 81 18 90/56 (67) 98 Room Air 11/28/21 00:00 36.3 77 18 91/50 (64) 97 Room Air 11/27/21 21:44 98 Room Air 99 11/27/21 19:34 36.9 85 18 94/58 (70) 98 Room Air 11/27/21 15:43 36.3 79 18 104/62 (76) 97 Room Air I & O 11/28/21 07:00 Intake Total 1600 ml Balance 1600 ml Capillary Refill : Less Than 3 Seconds General Appearance: No Apparent Distress, WD/WN Neck: Normal Inspection, Supple Respiratory: No Accessory Muscle Use, No Respiratory Distress Gastrointestinal: normal bowel sounds, non tender, soft Extremity: Normal Inspection, Normal Range of Motion Neurologic/Psychiatric: Alert, Oriented x3 Skin: Normal Color, Warm/Dry Results Lab Laboratory Tests 11/28/21 06:01: White Blood Count 10.7, Red Blood Count 2.70L, Hemoglobin 8.4#L, Hematocrit 25L, Mean Corpuscular Volume 93, Mean Corpuscular Hemoglobin 31, Mean Corpuscular Hemoglobin Concent 33, Red Cell Distribution Width 17.1H, Platelet Count 157, Mean Platelet Volume 11.9, Immature Granulocyte % (Auto) 1, Neutrophils (%) (Auto) 65, Lymphocytes (%) (Auto) 17, Monocytes (%) (Auto) 12, Eosinophils (%) (Auto) 5, Basophils (%) (Auto) 1, Neutrophils # (Auto) 6.9, Lymphocytes # (Auto) 1.8, Monocytes # (Auto) 1.3H, Eosinophils # (Auto) 0.5H, Basophils # (Auto) 0.1, Immature Granulocyte # (Auto) 0.2H, Sodium Level 136, Potassium Level 3.8, Chloride Level 107, Carbon Dioxide Level 22, Anion Gap 7, Blood Urea Nitrogen 23H, Creatinine 0.95, Estimat Glomerular Filtration Rate 90, BUN/Creatinine Ratio 24, Glucose Level 107H, Calcium Level 7.8L, Corrected Calcium 8.8, Total Bilirubin 0.8, Aspartate Amino Transf (AST/SGOT) 30, Alanine Aminotransferase (ALT/SGPT) 22, Alkaline Phosphatase 79, Total Protein 5.6L, Albumin 2.7L 11/28/21 12:35: Hemoglobin 9.1L, Hematocrit 28L Assessment/Plan Assessment/Plan Assess & Plan/Chief Complaint A 61 year old male with anemia secondary to GI bleed VSS Hgb 9.1 - Stable Wbc 10.7 EGD showed significant gastritis as well as esophageal varicies Continue with PPI and may need varicies banded at some point Clinical Quality Measures DVT/VTE Risk/Contraindication: Contraindications-Pharm: Other *list below* Other: NIURKA Carias APRN Nov 28, 2021 15:42
[2021-11-28 16:22] VITALS: BP 102/59
== END 2021-11-28 16:05 | disposition home or self-care (01) | DRG 432 ==
LOC: EDUNIT# 11:54 → ER 11:56 → UNDOADMOB 13:34 → CSD 13:34 → 4TH 11-26 15:03 → CSD 11-26 15:03 → 4TH 11-28 07:31 → UNDODISOB 11-28 16:05
PROVIDERS: ADMIT Internal Medicine; ATTEND Family Medicine
PROC: 0DB68ZX Excision of Stomach, Via Natural or Artificial Opening Endoscopic, Diagnostic (ICD-10-PCS; principal; 2021-11-25)
DX: K70.30 Alcoholic cirrhosis of liver without ascites (principal); I85.11 Secondary esophageal varices with bleeding; K29.71 Gastritis, unspecified, with bleeding; K21.01 Gastro-esophageal reflux disease with esophagitis, with bleeding; F17.210 Nicotine dependence, cigarettes, uncomplicated; F12.90 Cannabis use, unspecified, uncomplicated; B19.20 Unspecified viral hepatitis C without hepatic coma; I95.9 Hypotension, unspecified; D64.9 Anemia, unspecified; R00.0 Tachycardia, unspecified; K44.9 Diaphragmatic hernia without obstruction or gangrene
CPT/HCPCS: 36415; 80053; 80320; 81000; 82947; 83690; 85007; 85014; 85018; 85025; 85027; 85610; 86850; 86900; 86901; 86920; 88305; 96361; 96374; 96375; 96376

== ENCOUNTER 2022-04-26 11:21 | Inpatient (IN) | payer SELFPAY ==
[~2022-04-26] VITALS: Ht 172.7 cm; Wt 45.8 kg
[~2022-04-26 11:21] MED LIST changes: +ACET-2267 PO; +NF-RIFA200 PO; +PANT40TA52 PO; +SPIR100T4 PO
[2022-04-26] MEDS ORDERED: fentaNYL INJ 100 MCG/2 ML AMP IVP ONE (11:30)
[2022-04-26 12:04] LABS: BASOPHILS # (AUTO) 0.2 10^3/uL (0.0-0.1); BASOPHILS % (AUTO) 1 % (0-10); EOSINOPHILS # (AUTO) 0.1 10^3/uL (0.0-0.3); EOSINOPHILS % (AUTO) 1 % (0-10); HEMATOCRIT 30 % (40-54); HEMOGLOBIN 8.7 g/dL (13.3-17.7); LYMPHOCYTES # (AUTO) 1.4 10^3/uL (1.0-4.0); LYMPHOCYTES % (AUTO) 11 % (12-44); MEAN CORPUSCULAR HEMOGLOBIN 20 pg (25-34); MEAN CORPUSCULAR HGB CONC 29 g/dL (32-36); MEAN CORPUSCULAR VOLUME 68 fL (80-99); MEAN PLATELET VOLUME 9.9 fL (9.0-12.2); MONOCYTES # (AUTO) 1.5 10^3/uL (0.0-1.0); MONOCYTES % (AUTO) 12 % (0-12); NEUTROPHILS # (AUTO) 9.4 10^3/uL (1.8-7.8); NEUTROPHILS % (AUTO) 75 % (42-75); PLATELET COUNT 474 10^3/uL (130-400); WHITE BLOOD COUNT 12.6 10^3/uL (4.3-11.0)
[2022-04-26 12:15] LABS: INR 1.3 (0.8-1.4); PROTHROMBIN TIME PATIENT 16.2 SEC (12.2-14.7)
[2022-04-26 12:17] LABS: ALBUMIN 3.8 GM/DL (3.2-4.5); CHLORIDE 98 MMOL/L (98-107); POTASSIUM 4.8 MMOL/L (3.6-5.0); SODIUM 128 MMOL/L (135-145)
[2022-04-26 12:18] LABS: CALCIUM 9.9 MG/DL (8.5-10.1)
[2022-04-26 12:20] LABS: GLUCOSE 136 MG/DL (70-105); TOTAL PROTEIN 10.3 GM/DL (6.4-8.2)
[2022-04-26 12:21] LABS: CARBON DIOXIDE 18 MMOL/L (21-32)
[2022-04-26 12:22] LABS: BILIRUBIN,TOTAL 0.9 MG/DL (0.1-1.0); ERYTHROCYTE SEDIMENTATION RATE 71 MM/HR (0-30)
[2022-04-26 12:23] LABS: ALKALINE PHOSPHATASE 141 U/L (40-136)
[2022-04-26 12:24] LABS: CREATININE SERUM 1.79 MG/DL (0.60-1.30); GFR ESTIMATED 42
[2022-04-26 12:25] LABS: BUN/CREATININE RATIO 20
[2022-04-26 12:26] LABS: ALANINE AMINOTRANSFERASE 21 U/L (0-55)
[2022-04-26] MEDS ORDERED: PIPERACILLIN SODIUM/TAZOBACTAM 4.5 GM in NS (IVPB) 100 ML IV ONE (13:15)
[2022-04-26] MEDS ORDERED: NS IV 1000 ML 1,000 ML IV SCH (13:15)
--- NOTE | 2022-04-26 13:18 | Diagnostic Imaging Report ---
HISTORY: Gangrene TECHNIQUE: Polk scale, color Doppler and spectral Doppler ultrasound performed of the arterial structures in the left lower extremity COMPARISON: None FINDINGS: The left common femoral artery demonstrates moderate atherosclerosis. There is a mostly triphasic waveform and velocity measures 132 cm/s. The deep femoral artery has a biphasic waveform and measures 78 cm/s. The superficial femoral artery has moderate atherosclerosis, a monophasic waveform throughout and ranges between 43 and 57 cm/s. The popliteal artery has a monophasic waveform and measures 41 cm/s. The left posterior tibial artery has a monophasic waveform measures 30 cm/s. The dorsalis pedis has a monophasic waveform and measures 21 cm/s. IMPRESSION: 1. Moderate atherosclerosis in the left lower extremity. Mildly diminished flow with monophasic waveforms distally. No high-grade stenosis or occlusion is identified. Dictated by: Dictated on workstation # [id number]
--- NOTE | 2022-04-26 13:42 | Diagnostic Imaging Report ---
FOOT, LEFT, 3 VIEWS INDICATION: Left foot pain and infection of the toe. COMPARISON: None available. TECHNIQUE: Three non-weightbearing views of foot were obtained. FINDINGS: No osseous erosions or periosteal reaction. No fracture or soft tissue gas. Alignment of the midfoot is normal on non-weightbearing imaging. IMPRESSION: 1. No radiographic features of osteomyelitis. Dictated by: Dictated on workstation # [id number]
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
[2022-04-26] MEDS ORDERED: HEParin (CATH LAB) 2,000 ML IV ONE (14:14)
[2022-04-26] MEDS ORDERED: LIDOCAINE 1% INJ 30 ML (XYLOCAINE) VIAL ONE (14:14)
[2022-04-26] MEDS ORDERED: VANCOMYCIN INJECTION 1,000 MG in NS (IVPB) 250 ML IV ONE (14:15)
[2022-04-26] MEDS ORDERED: fentaNYL INJ 100 MCG/2 ML AMP ONE (14:18)
[2022-04-26] MEDS ORDERED: MIDAZOLAM 5 MG/5 ML (VERSED) VIAL ONE (14:18)
[2022-04-26] MEDS ORDERED: NS IV 1000 ML 1,000 ML ONE (14:40)
--- NOTE | 2022-04-26 14:42 | Cardiac Procedure Note-CS/ASA ---
Pre-Procedure Note Pre-Op Procedure Note Date of Available H&P: Apr 26, 2022 Date H&P Reviewed: Apr 26, 2022 Time H&P Reviewed: 14:41 History & Physical: H&P Reviewed, Patient Examed, No changes noted Pre-Operative Diagnosis: Gangrene Conscious Sedation Pre-Proced Time 14:41 ASA Score 3 For ASA 3 and 4: Consider anesthesia and medical clearance. Also, for patients with a history of failed moderate sedation consider anesthesia. Airway Lungs Heart ASA score ASA 1: a normal healthy patient ASA 2: a patient with a mild systemic disease (mid diabetes, controlled hypertension, obesity ASA 3: a patient with a severe systemic disease that limits activity (angina, COPD, prior Myocardial infarction) ASA 4: a patient with an incapacitating disease that is a constant threat to life (CHF, renal failure) ASA 5: a moribund patient not expected to survive 24 hrs. (ruptured aneurysm) ASA 6: a declared brain- patient whose organs are being harvested. For emergent operations, add the letter E after the classification Mallampati Classification Grade 3 Sedation Plan Analgesia, Amnesia, Plan communicated to team members, Discussed options with patient/fam, Discussed risks with patient/fam The patient is an appropriate candidate to undergo the planned procedure, sedation, and anesthesia. The patient immediately re-assessed prior to indication. RADHA HERNANDEZ MD Apr 26, 2022 14:42
[2022-04-26] MEDS ORDERED: HEParin 1000 UNIT/ML (10ML VIAL) FOR BOLUS ONE (15:00)
[2022-04-26] MEDS ORDERED: NITRO DRIP 25000 MCG/D5W 0 ML IV ONE (15:00)
[2022-04-26] MEDS ORDERED: ASPIRIN 325 MG (5 GR) TABLET ONE (15:36)
[2022-04-26] MEDS ORDERED: CLOPIDOGREL 300 MG (PLAVIX) TABLET PO ONE (15:36)
[2022-04-26] MEDS ORDERED: PATIENT MAY USE OWN MEDS, ALL PO SCH (15:45)
--- NOTE | 2022-04-26 15:51 | Cardiac Cath Report ---
Cardiac Cath Report Physician (s)/Transformation Consultant (s) Physician RADHA HERNANDEZ MD Pre-Procedure Diagnosis Pre-Procedure Diagnosis: Gangrene, Critical limb ischemia Post-Procedure Note Procedure Start Date: Apr 26, 2022 Name of Procedure: Bilateral lower extremities ischemia third order additional imaging x2 Stent to left SFA Findings/Procedure Note PROCEDURE NOTE: Patient was admitted with critical limb ischemia After explaining the procedure to the patient, all pros and cons were explained, all questions were answered. The patient signed the consent and then he was placed on the cardiac catheterization laboratory. The patient was placed on the cardiac catheterization laboratory. Groin was prepped SL fashion local anesthesia was used. Sheath placed in the right femoral artery Runoff to the right leg was done, rim catheter was done and runoff to the left leg was done then storq wire used and advanced distally, sheath exchanged then Command 18 used, Edmond 5 x 100 then 6 x 60 done then deployment of Supera 5.5x60 post dilated with 6 balloon then DSA imaging to the trifurcation then to the foot level done Sheath pressure at mid SFA 75/50, Common femoral 100/57 Repeat angiogram showed non obstructive disease FINDINGS: Right lower extremity: Total occlusion in the mid right SFA reconstructed by collateral, slow flow distally. Left lower extremity: Total occlusion in the mid left SFA, successful balloon angioplasty with stenting using Supera 5.5 x 60 with excellent results. Distal SFA had moderate stenosis, balloon angioplasty done with 5 x 100 Edmond balloon. The proximal/ostial SFA has 25 mm of gradient but no identifiable stenosis at the ostium. Distally down to the foot there is good flow postintervention CONCLUSIONS: 1. Total occlusion of the mid left SFA, successful deployment of Supera 5.5 x 60 with excellent results. The distal SFA has moderate stenosis with successful balloon angioplasty with excellent results. The ostium of the SFA has 25 mmHg gradient during pullback but angiogram did not identify any obstructive disease. We will continue monitoring for now. 2. Total occlusion of the mid right SFA. There is no acute ischemic abnorma lity at this point. We will monitor closely. DISCUSSION AND RECOMMENDATIONS: I am hesitant with aggressive intervention due to his history of varicose bleed and GI bleed, unable to tolerate aggressive anticoagulation Anesthesia Type: Conscious Sedation Estimated blood loss (mL): 25 ml Contrast Amount: 50 ml Total Radiation Dose: 71 mGy Post-Procedure Diagnosis Post-operative diagnosis: Critical limb ischemia Peripheral arterial disease Tobaccoism Gangrene RADHA HERNANDEZ MD Apr 26, 2022 15:51
--- NOTE | 2022-04-26 15:53 | History & Physical-Hospitalist ---
TERRENCEJENS 04/26/22 1553: History of Present Illness HPI/Chief Complaint Patient is a 61-year-old male with a history of CKD, and cirrhosis due to hepatitis C and alcohol abuse who presented to the ED from his PCP on 04/26 with chief complaint of toe pain and discoloration. History is from ER records due to patient being under sedation from surgery. Patient states that he was bit by an animal in his left foot approximately 6 weeks ago and that his left 5th toe has been stepped on multiple times since then. Patient can not recall what animal bit him or what he was doing when he was bitten. US of the left lower extremity showed moderate atherosclerosis and mildly diminished flow. X-ray showed no signs of osteomyelitis. Patient is hyponatremic at 128 and has been started on IV fluid resuscitation. The patient's BUN and creatinine are elevated at 35 and 1.79. Peripheral arteriogram showed complete occlusion of the b/l superficial femoral arteries. Balloon angioplasty was performed on the left SFA. The patient's left 5th toe is black at the tip and is tender on palpation. The patient reports that it was swollen a few days ago and has been having some slight drainage. Source: RN/, RN notes reviewed, EMS notes reviewed Exam Limitations: other (Currently under sedation) Date Seen 04/26/22 Time Seen by a Provider: 04:00 Attending Physician [place] PCP Admitting Physician: Attending Physician: Juan Patel MD Referring Physician Date of Admission Home Medications & Allergies Home Medications Reviewed patient Home Medication Reconciliation performed by pharmacy medication reconciliations sanitation technician and/or nursing. Patients Allergies have been reviewed. Allergies Allergies Coded Allergies No Known Drug Allergies (Unverified02/06/10) Past Muizxtc-Grtjzb-Lzytfs Hx Patient Social History Tobacco Use?: Yes Tobacco type used: Cigarettes Smoking Status: Current Everyday Smoker Use of E-Cig and/or Vaping dev: No Substance use?: Yes Substance type: Marijuana Alcohol Use?: No Immunizations Up To Date First/Initial COVID19 Vaccinat: October 20, 2020 Second COVID19 Vaccination Macario: 2020 Tetanus Booster (TDap): Unknown Current Status Advance Directives: No Communicates: Verbally Primary Language: [place] Citizen Preferred Spoken Language: [place] Citizen Is interpretation needed?: No Past Medical History Hepatitis, Cirrhosis (From hepatitis C and alcohol use) Blood Disorders: Yes (Anemia) Family Medical History No Pertinent Family Hx Review of Systems ROS-Unable to Obtain: Patient under sedation Physical Exam Physical Exam Vital Signs Vital Signs - First Documented 04/26/22 11:30 Temp 36.1 Pulse 101 Resp 18 B/P (MAP) 118/63 (81) Pulse Ox 100 O2 Delivery Room Air Capillary Refill : Less Than 3 Seconds Height, Weight, BMI Height: '" Weight: lbs. oz. kg; 15.00 BMI Method: General Appearance: No Apparent Distress, WD/WN HEENT: PERRL/EOMI Neck: Non Tender, Supple Respiratory: Chest Non Tender, Lungs Clear, No Respiratory Distress Cardiovascular: Regular Rate, Rhythm, No Edema Gastrointestinal: Non Tender, Soft Rectal: Deferred Extremity: No Pedal Edema, Other (gangrenous left fifth toe) Neurologic/Psychiatric: Alert, Oriented x3 Skin: Warm/Dry, Other (gangrenous left fifth toe) Lymphatic: No Adenopathy Results Results/Procedures Labs Laboratory Tests 04/26/22 11:50 Patient resulted labs reviewed. Assessment/Plan Admission Diagnosis Admission Status: Inpatient Order (span 2 midnights) Reason for Inpatient Admission: Gangrenous toe Assessment and Plan Gangrenous left 5th toe PVD CKD Chronic liver failure Hyponatremia History of alcohol abuse Hx of Esophageal varices Hx of GI bleed Cardiology consulted Surgery consulted IV fluid resuscitation Monitor and replace electrolytes as needed Underwent balloon angioplasty in left lower extremity today Pain control as needed IV antibiotics JULIETTE LOCKE DO 04/27/22 0557: Past Begdthw-Wtzzya-Xlnrge Hx Patient Social History Marrital Status: single Employed/Student: unemployed Smoking Status: Current Everyday Smoker Past Medical History High Cholesterol, Hypertension, Peripheral Vascular Review of Systems Constitutional: see HPI Physical Exam Physical Exam General Appearance: Chronically ill, Thin, Other (Sedated) Respiratory: Lungs Clear Cardiovascular: Regular Rate, Rhythm Assessment/Plan Admission Diagnosis Assessment: Left fifth toe gangrene Severe peripheral vascular disease status post cath with intervention Cirrhosis Hepatitis C Alcoholism Plan: Appreciate Dr. Patel's intervention IV antibiotics Appreciate Dr. Sofia Admission Status: Inpatient Order (span 2 midnights) Reason for Inpatient Admission: Gangrenous toe Supervisory-Addendum Brief Verification & Attestation Participated in pt care: history, MDM, physical Personally performed: exam, history, MDM, supervision of care Care discussed with: Medical Student Procedures: n/a Results interpretation: Verified all documentation Verification and Attestation of Medical Student E/M Service A medical student performed and documented this service in my presence. I reviewed and verified all information documented by the medical student and made modifications to such information, when appropriate. I personally performed the physical exam and medical decision making. Juliette Locke, Apr 27, 2022,05:57 JENS OCAMPO Apr 26, 2022 15:53 JULIETTE LOCKE DO Apr 27, 2022 05:57
[2022-04-26] MEDS ORDERED: LORazepam 0.5 MG (ATIVAN) TABLET PO PRN (16:30)
[2022-04-26] MEDS ORDERED: diphenhydrAMINE 25 MG TAB (BENADRYL) PO PRN (16:30)
[2022-04-26] MEDS ORDERED: ONDANSETRON 4 MG (ZOFRAN) ORAL DISSOLVE TAB PO PRN (16:30)
[2022-04-26] MEDS ORDERED: ANTACID SUSP 30 ML UDC (MYLANTA) PO PRN (16:30)
[2022-04-26] MEDS ORDERED: LORazepam INJ 2 MG/ML (ATIVAN) VIAL IVP PRN (16:30)
[2022-04-26] MEDS ORDERED: morphine IMMEDIATE RELEASE 15 MG TABLET PO PRN (16:30)
[2022-04-26] MEDS ORDERED: LACTULOSE SYRUP 10GM/15ML (ENULOSE) 30ML UDC PO PRN (16:30)
[2022-04-26] MEDS ORDERED: BISACODYL 10 MG SUPP (DULCOLAX) PR PRN (16:30)
[2022-04-26] MEDS ORDERED: ONDANSETRON 4 MG/2 ML (SDV) Z0FRAN IV PRN (16:30)
[2022-04-26] MEDS ORDERED: polyethylene glycoL POWDER 17 GM (MIRALAX) PACK PO PRN (16:30)
[2022-04-26] MEDS ORDERED: ENOXAPARIN 40 MG/0.4 ML (LOVENOX) SYR SC SCH (16:30)
[2022-04-26] MEDS ORDERED: VANCOMYCIN INJECTION 0.1 MG in NS (IVPB) 250 ML IV SCH (16:30)
[2022-04-26] MEDS ORDERED: diphenhydrAMINE 50 MG/ML INJ (BENADRYL) IVP PRN (16:30)
[2022-04-26] MEDS ORDERED: MELATONIN 3 MG TABLET PO PRN (16:30)
[2022-04-26] MEDS ORDERED: ACETAMINOPHEN 325 MG TABLET PO PRN (16:30)
[2022-04-26] MEDS ORDERED: HYDROmorphone 2 MG/ML VIAL (DILAUDID) IV PRN (16:30)
[2022-04-26] MEDS ORDERED: CALCIUM CARBONATE 500 MG (TUMS) TAB.CHEW PO PRN (16:30)
[2022-04-26] MEDS ORDERED: MILK OF MAGNESIA 400 MG/5 ML 30 ML UDC PO PRN (16:30)
[2022-04-26 16:31] VITALS: BP 109/68
[2022-04-26 16:40] VITALS: BP 110/74
[2022-04-26] MEDS ORDERED: RT-ALBUTEROL/IPRATROPIUM 3 ML (DUONEB) VIAL INH PRN (16:45)
[2022-04-26] MEDS: VANCOMYCIN 1 GM/NS 250 ML IVPB IV SCH ×2 (17:03)
[2022-04-26] MEDS: PANTOPRAZOLE 40 MG (PROTONIX) TAB PO SCH (17:07)
[2022-04-26] MEDS: RT-ALBUTEROL/IPRATROPIUM 3 ML (DUONEB) VIAL INH SCH (18:37)
[2022-04-26] MEDS: NS IV 1000 ML 1,000 ML IV SCH ×2 (19:48→22:04)
[2022-04-26] MEDS: SENNOSIDES 8.6 MG (SENOKOT) TAB PO SCH (20:08)
[2022-04-26] MEDS: ENOXAPARIN INJECTION 30 MG/0.3 ML SYR SC SCH (20:08)
[2022-04-26] MEDS: DOCUSATE SODIUM 100 MG (COLACE) CAP PO SCH (20:08)
[2022-04-26] MEDS: PIPERACILLIN SODIUM/TAZOBACTAM 4.5 GM in NS (IVPB) 100 ML IV SCH (20:10)
[2022-04-27] MEDS: NS IV 1000 ML 1,000 ML IV SCH ×4 (02:06→21:41)
[2022-04-27] MEDS: PIPERACILLIN SODIUM/TAZOBACTAM 4.5 GM in NS (IVPB) 100 ML IV SCH ×3 (04:39→20:11)
[2022-04-27 04:40] LABS: BASOPHILS # (AUTO) 0.1 10^3/uL (0.0-0.1); BASOPHILS % (AUTO) 1 % (0-10); EOSINOPHILS # (AUTO) 0.1 10^3/uL (0.0-0.3); EOSINOPHILS % (AUTO) 1 % (0-10); HEMATOCRIT 25 % (40-54); HEMOGLOBIN 7.4 g/dL (13.3-17.7); LYMPHOCYTES # (AUTO) 0.9 10^3/uL (1.0-4.0); LYMPHOCYTES % (AUTO) 9 % (12-44); MEAN CORPUSCULAR HEMOGLOBIN 20 pg (25-34); MEAN CORPUSCULAR HGB CONC 29 g/dL (32-36); MEAN CORPUSCULAR VOLUME 68 fL (80-99); MEAN PLATELET VOLUME 10.1 fL (9.0-12.2); MONOCYTES % (AUTO) 11 % (0-12); NEUTROPHILS % (AUTO) 76 % (42-75); PLATELET COUNT 381 10^3/uL (130-400); WHITE BLOOD COUNT 9.2 10^3/uL (4.3-11.0)
[2022-04-27 04:53] LABS: ALBUMIN 2.9 GM/DL (3.2-4.5); POTASSIUM 5.1 MMOL/L (3.6-5.0)
[2022-04-27 04:54] LABS: CALCIUM 8.7 MG/DL (8.5-10.1)
[2022-04-27 04:55] LABS: TOTAL PROTEIN 7.7 GM/DL (6.4-8.2)
[2022-04-27 04:57] LABS: BILIRUBIN,TOTAL 0.6 MG/DL (0.1-1.0)
[2022-04-27 04:59] LABS: CREATININE SERUM 1.78 MG/DL (0.60-1.30)
[2022-04-27] MEDS: RT-ALBUTEROL/IPRATROPIUM 3 ML (DUONEB) VIAL INH SCH ×4 (07:08→19:05)
[2022-04-27] MEDS: PANTOPRAZOLE 40 MG (PROTONIX) TAB PO SCH (08:10)
[2022-04-27] MEDS: SENNOSIDES 8.6 MG (SENOKOT) TAB PO SCH ×3 (08:10→21:39)
[2022-04-27] MEDS: CLOPIDOGREL 75 MG (PLAVIX) TABLET PO SCH (08:10)
[2022-04-27] MEDS: DOCUSATE SODIUM 100 MG (COLACE) CAP PO SCH ×3 (08:10→21:39)
[2022-04-27] MEDS: ASPIRIN E.C. 81 MG (ECOTRIN) TAB PO SCH (08:10)
[2022-04-27] MEDS: lisINopril 5 MG (PRINIVIL) TABLET PO SCH (08:10)
--- NOTE | 2022-04-27 08:36 | Cardiology Progress Note ---
Subjective Date Seen by Provider: Apr 27, 2022 Time Seen by Provider: 08:33 Subjective/Events-last exam Patient was seen at bedside, complaining of pain and numbness in his foot. Review of Systems General: No Chills, No Night Sweats, No Fatigue, No Malaise, No Appetite, No Other HEENT: No Head Aches, No Visual Changes, No Eye Pain, No Ear Pain, No Dysphasia, No Sinus Congestion, No Post Nasal Drip, No Sore Throat, No Other Pulmonary: No Dyspnea, No Cough, No Pleuritic Chest Pain, No Other Cardiovascular: No: Chest Pain, Palpitations, Orthopnea, Paroxysmal Noc. Dyspnea, Edema, Lt Headedness, Other Focused Exam Lactate Level 04/26/22 11:50: Lactic Acid Level 2.42*H 04/26/22 13:47: Lactic Acid Level 1.42 Objective-Cardiology Exam Last Set of Vital Signs Vital Signs 04/26/22 04/27/22 04/27/22 04/27/22 16:40 00:01 04:00 07:08 Temp 37.0 Pulse 98 Resp 20 B/P (MAP) 100/61 (74) Pulse Ox 99 O2 Delivery Room Air FiO2 21 I&O Intake and Output 04/27/22 00:00 Intake Total 1350 ml Balance 1350 ml Intake IV Total 1350 ml General: Alert, Oriented X3, Cooperative HEENT: Atraumatic, PERRLA Neck: Supple, No JVD, No Thyromegaly Lungs: Clear to Auscultation, Normal Air Movement Heart: Regular Rate, Normal S1, Normal S2, Other (Systolic murmur at the left sternal border) Abdomen: Normal Bowel Sounds, Soft, No Tenderness, No Hepatosplenomegaly, No Masses Extremities: No Edema, Normal Pulses, No Tenderness/Swelling, Other (Gangrene: The left fifth toe) Skin: No Rashes, No Breakdown, No Significant Lesion Neuro: Normal Gait, Normal Speech, Strength at 5/5 X4 Ext, Normal Tone, Sensation Intact Psych/Mental Status: Mental Status NL, Mood NL Results Lab Laboratory Tests 04/26/22 11:50 04/27/22 04:08 A/P-Cardiology Admission Diagnosis PVD Left 5th toe gangrene Hep C Cirrhosis Assessment/Plan Left 5th toe cellulitis with gangrene, started on antibiotic. Lower extremity US done showing moderate atherosclerosis in the left lower extremity. Peripheral angiogram done on April 26, 2022 with total occlusion of the left SFA, successful balloon angioplasty and deployment of Supera stent 5.5 x 60 mm with excellent results. Significant improvement in the blood flow down to the foot. Consult general surgery for possible amputation Peripheral arterial disease, angiogram done on April 27, 2020. Status post stenting of the left SFA with Supera 5.5 x 16 mm with excellent r esults. Total occlusion of the right SFA that would need intervention at a later point. Currently on aspirin and Plavix. I will monitor closely for tolerance and response Hypokalemia, I started him on lisinopril. I will monitor potassium closely CKD, continue IV fluids, continue to monitor renal function Hyponatremia, receiving IVFs, continue to monitor. Cirrhosis d/t Hep C and hx of alcoholism Hx esophageal varices Hx of GI bleed. Tobaccoism, educated on smoking cessation History of illicit drug use. RADHA HERNANDEZ MD Apr 27, 2022 08:36
--- NOTE | 2022-04-27 09:32 | Consultation - Surgery ---
ROSALIO BETTENCOURT 04/27/22 0932: History of Present Illness History of Present Illness Patient Consulted On(jennifer/time) 04/27/22 08:50 Date Seen by Provider: Apr 27, 2022 Time Seen by Provider: 08:50 Reason for Visit: Left 5th toe gangrene, PVD History of Present Illness Surgery consult for Kandice Younger, 61 yo M with past medical history of liver cirrhosis, Hepatitis C, and alcoholism, is admitted to ICU with for Left fifth toe gangrene and PVD. Pt states the pain in his toe began a couple of months back. He believes he was bitten by something. First his toe had a black dot with white ring around it. Pt "popped" the area and says a small hole was left. Later his left foot was stepped on several times which he thinks made it worse. The toe pain has gotten worse over time so pt went to walk-in care and receive antibiotic a couple of weeks ago. States they helped his toe some. Yesterday, pt was visiting his PCP, Dr. Jessica Garcia who advised he visit the ED. There pt received US of LLE Arterial with showed moderate atherosclerosis of LLE and mildly diminished flow. Left foot x-ray did not show osteomyelitis. Cardiology has been consulted. Pt states he has had fevers, chills, and nausea for the past couple of months. Currently his left toe pain is sharp 7/10 and radiates up to his leg. Allergies and Home Medications Allergies Coded Allergies: No Known Drug Allergies (Unverified , 02/06/10) Patient Home Medication List Home Medication List Reviewed: Yes Acetaminophen (Tylenol Extra Strength) 500 Mg Tablet, 500 MG PO Q8H PRN for PAIN-MILD (1-4), (Reported) Entered as Reported by: BEATRIZ WILSON on 11/28/21 1016 Pantoprazole Sodium (Pantoprazole Sodium) 40 Mg Tablet., 40 MG PO DAILY, (Reported) Entered as Reported by: BEATRIZ WILSON on 11/28/21 1015 Rifaximin (Xifaxan) 200 Mg Tablet, 600 MG PO BID, (Reported) Entered as Reported by: BEATRIZ WILSON on 11/28/21 1016 Spironolactone (Spironolactone) 100 Mg Tablet, 100 MG PO DAILY, (Reported) Entered as Reported by: BEATRIZ WILSON on 11/28/21 1015 Past Fvlshzo-Hqxdws-Khfdyw Hx Patient Social History Smoking Status: Former Smoker (pt states he quit 6 days ago) Cigarettes Per Day: 20 Former Smoker, Quit: Apr 21, 2022 Alcohol Use?: No (last drink was over 1 years ago) Substance type: Methamphetamine (former use), Marijuana (former use) Have you traveled recently?: No Surgeries History of Surgeries: Yes Surgeries: Amputation (amputation of left second digit) Respiratory History of Respiratory Disorde: No Cardiovascular History of Cardiac Disorders: Yes Cardiac Disorders: High Cholesterol, Hypertension, Peripheral Vascular Neurological History of Neurological Disord: No Genitourinary History of Genitourinary Disor: No Gastrointestinal History of Gastrointestinal Di: Yes Gastrointestinal Disorders: Gastrointestinal Bleed, Hepatitis (hep C), Cirrhosis (From hepatitis C and alcohol use) Musculoskeletal History of Musculoskeletal Dis: Yes Musculoskeletal Disorders: Amputee (amputation of left second digit) Endocrine History of Endocrine Disorders: No HEENT History of HEENT Disorders: No Cancer History of Cancer: No Psychosocial History of Psychiatric Problem: No Blood Transfusions History of Blood Disorders: Yes (Anemia) Family Medical History Significant Family History: Cancer (pt states grandfather had cancer, unknown type), Diabetes (states parents did not have diabetes but unsure) Review of Systems-General Constitutional: chills, fever EENTM: blurred vision (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), vision loss (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), dental problems (missing teeth); No eye pain Respiratory: No cough, No dyspnea on exertion, No short of breath Cardiovascular: No chest pain; palpitations (states maybe his heart has "weird beats" sometimes), syncope (states he loses consciousness about once per month during dizzy spells) Gastrointestinal: abdominal pain (RUQ); No constipation, No diarrhea; nausea; No vomiting; other (scarring across abdomen from murray) Genitourinary: No dysuria, No hematuria Musculoskeletal: No muscle cramps, No muscle weakness; other (pain in 5th left toe) Skin: dryness, other (tattoos on bilateral forearms) Psychiatric/Neurological: Denies Headache; Tingling Physical Exam-General Problems Physical Exam Vital Signs Vital Signs - First Documented 04/26/22 04/26/22 11:30 16:40 Temp 36.1 Pulse 101 Resp 18 B/P (MAP) 118/63 (81) Pulse Ox 100 O2 Delivery Room Air FiO2 21 Capillary Refill : Less Than 3 Seconds General Appearance: WD/WN, cachetic Eyes: Bilateral Eye PERRL, Bilateral Eye EOMI HEENT: PERRL/EOMI; No scleral icterus (R), No scleral icterus (L) Neck: full range of motion, supple Respiratory: lungs clear, normal breath sounds, no respiratory distress, no accessory muscle use Cardiovascular: regular rate, rhythm, no murmur Peripheral Pulses: 2+ Dorsalis Pedis (R), 2+ Left Dors-Pedis (L), 2+ Radial Pulses (R), 2+ Radial Pulses (L) Gastrointestinal: soft, distended (mildly), tenderness (in RUQ), other (scarring on abdomen) Rectal: deferred Back: no CVA tenderness, no vertebral tenderness Extremities: non-tender, no pedal edema, no calf tenderness, other (necrosis of left 5th toe ) Neurologic/Psychiatric: alert, oriented x 3 Skin: warm/dry, tattoos/piercings (tattoo bilateraly forearms) Data Review Labs Laboratory Tests 04/26/22 11:50: White Blood Count 12.6H, Red Blood Count 4.38, Hemoglobin 8.7L, Hematocrit 30L, Mean Corpuscular Volume 68L, Mean Corpuscular Hemoglobin 20L, Mean Corpuscular Hemoglobin Concent 29L, Red Cell Distribution Width 18.6H, Platelet Count 474H, Mean Platelet Volume 9.9, Immature Granulocyte % (Auto) 1, Neutrophils (%) (Auto) 75, Lymphocytes (%) (Auto) 11L, Monocytes (%) (Auto) 12, Eosinophils (%) (Auto) 1, Basophils (%) (Auto) 1, Neutrophils # (Auto) 9.4H, Lymphocytes # (Auto) 1.4, Monocytes # (Auto) 1.5H, Eosinophils # (Auto) 0.1, Basophils # (Auto) 0.2H, Immature Granulocyte # (Auto) 0.1, Erythrocyte Sedimentation Rate 71H, Prothrombin Time 16.2H, INR Comment 1.3, Activated Partial Thromboplast Time 32, Sodium Level 128L, Potassium Level 4.8, Chloride Level 98, Carbon Dioxide Level 18L, Anion Gap 12, Blood Urea Nitrogen 35H, Creatinine 1.79H, Estimat Glomerular Filtration Rate 42, BUN/Creatinine Ratio 20, Glucose Level 136H, Lactic Acid Level 2.42*H, Calcium Level 9.9, Corrected Calcium 10.1, Total Bilirubin 0.9, Aspartate Amino Transf (AST/SGOT) 29, Alanine Aminotransferase (ALT/SGPT) 21, Alkaline Phosphatase 141H, C-Reactive Protein High Sensitivity 1.92H, Total Protein 10.3H, Albumin 3.8, Serum Alcohol < 10 04/26/22 13:47: Lactic Acid Level 1.42 04/27/22 04:08: White Blood Count 9.2, Red Blood Count 3.70L, Hemoglobin 7.4L, Hematocrit 25L, Mean Corpuscular Volume 68L, Mean Corpuscular Hemoglobin 20L, Mean Corpuscular Hemoglobin Concent 29L, Red Cell Distribution Width 18.6H, Platelet Count 381, Mean Platelet Volume 10.1, Immature Granulocyte % (Auto) 1, Neutrophils (%) (Auto) 76H, Lymphocytes (%) (Auto) 9L, Monocytes (%) (Auto) 11, Eosinophils (%) (Auto) 1, Basophils (%) (Auto) 1, Neutrophils # (Auto) 7.0, Lymphocytes # (Auto) 0.9L, Monocytes # (Auto) 1.0, Eosinophils # (Auto) 0.1, Basophils # (Auto) 0.1, Immature Granulocyte # (Auto) 0.1, Sodium Level 129L, Potassium Level 5.1H, Chloride Level 104, Carbon Dioxide Level 17L, Anion Gap 8, Blood Urea Nitrogen 31H, Creatinine 1.78H, Estimat Glomerular Filtration Rate 43, BUN/Creatinine Ratio 17, Glucose Level 102, Calcium Level 8.7, Corrected Calcium 9.6, Total Bilirubin 0.6, Aspartate Amino Transf (AST/SGOT) 26, Alanine Aminotransferase (ALT/SGPT) 17, Alkaline Phosphatase 111, Total Protein 7.7, Albumin 2.9L, Triglycerides Level 72, Cholesterol Level 87, LDL Cholesterol Direct 58, VLDL Cholesterol 14, HDL Cholesterol 17L Radiology NAME: KANDICE YOUNGER MED REC#: [id number] PT STATUS: ADM IN : 1960 PHYSICIAN: SHARON NUNEZ MD ADMIT DATE: 04/26/22/ICU Signed Date of Exam:04/26/22 US LEFT LOW EXT ARTERIAL [id number] HISTORY: Gangrene TECHNIQUE: Polk scale, color Doppler and spectral Doppler ultrasound performed of the arterial structures in the left lower extremity COMPARISON: None FINDINGS: The left common femoral artery demonstrates moderate atherosclerosis. There is a mostly triphasic waveform and velocity measures 132 cm/s. The deep femoral artery has a biphasic waveform and measures 78 cm/s. The superficial femoral artery has moderate atherosclerosis, a monophasic waveform throughout and ranges between 43 and 57 cm/s. The popliteal artery has a monophasic waveform and measures 41 cm/s. The left posterior tibial artery has a monophasic waveform measures 30 cm/s. The dorsalis pedis has a monophasic waveform and measures 21 cm/s. IMPRESSION: 1. Moderate atherosclerosis in the left lower extremity. Mildly diminished flow with monophasic waveforms distally. No high-grade stenosis or occlusion is identified. Dictated by: Dictated on workstation # [id number] Dict: 04/26/22 1313 Trans: 04/26/227 [employer] [facility] [id number] Interpreted by: JEANNE ROLLINS MD Electronically signed by: JEANNE ROLLINS MD 04/26/22 1617 NAME: KANDICE YOUNGER [facility] REC#: [id number] PT STATUS: ADM IN : 1960 PHYSICIAN: SHARON NUNEZ MD ADMIT DATE: 04/26/22/ICU Signed Date of Exam:04/26/22 FOOT, LEFT, 3 VIEWS FOOT, LEFT, 3 VIEWS INDICATION: Left foot pain and infection of the toe. COMPARISON: None available. TECHNIQUE: Three non-weightbearing views of foot were obtained. FINDINGS: No osseous erosions or periosteal reaction. No fracture or soft tissue gas. Alignment of the midfoot is normal on non-weightbearing imaging. IMPRESSION: 1. No radiographic features of osteomyelitis. Dictated by: Dictated on workstation # [id number] Dict: 04/26/22 1339 Trans: 04/26/22 1638 [id number] Interpreted by: JAMES PAYNE MD Electronically signed by: JAMES PAYNE MD 04/26/22 1638 Assessment/Plan Assessment/Plan Assessment/Plan Dry gangrene of Left 5th Toe PVD Cirrhosis of liver Hepatitis C hx of Alcoholism, Esophageal Varices, GI Bleed Continue IVF and pain management. Keep NPO. Schedule for left 5th toe amputation. Clinical Quality Measures DVT/VTE Risk/Contraindication: Contraindications-Mechi: Other *list below* Other: severe pvd cellulitis legs DUSTY HERRERA DO 04/27/22 1010: History of Present Illness History of Present Illness Time Seen by Provider: 09:24 History of Present Illness Surgery asked to consult regarding gangrene of left 5th toe. HPI per ED: This 61-year-old gentleman with chronic liver failure from cirrhosis secondary to hepatitis C and alcohol consumption presents to the emergency room with 2 months of left fifth toe pain and discoloration. He had used antibiotics without significant improvement. He describes mild injury to the toe at onset being being stepped on by another individual. X-rays done in the clinic showed no fracture or osteomyelitis. Dr. Jessica Garcia called ahead with report and was concerned about vascular pathology as a primary etiology. On initial evaluation he has palpable dorsal and posterior pedal pulses. Capillary refill is about for 5 seconds in the toes except for the fifth toe which is black on the tip. He reports scant drainage from the toe. He had more significant swelling a few days ago. He is exquisitely tender on the proximal fifth toe. He denies any alcohol consumption over the past 2 years. He reports fevers at home but is afebrile now. When I spoke to pt he was not having any pain. Dr. Patel has already stented the leg, but he called me and said this toe was not going to improve. Allergies and Home Medications Allergies Coded Allergies: No Known Drug Allergies (Unverified , 02/06/10) Patient Home Medication List Home Medication List Reviewed: Yes Acetaminophen (Tylenol Extra Strength) 500 Mg Tablet, 500 MG PO Q8H PRN for PAIN-MILD (1-4), (Reported) Entered as Reported by: BEATRIZ WILSON on 11/28/21 1016 Pantoprazole Sodium (Pantoprazole Sodium) 40 Mg Tablet.dr 40 MG PO DAILY, (Reported) Entered as Reported by: BEATRIZ WILSON on 11/28/21 1015 Rifaximin (Xifaxan) 200 Mg Tablet, 600 MG PO BID, (Reported) Entered as Reported by: BEATRIZ WILSON on 11/28/21 1016 Spironolactone (Spironolactone) 100 Mg Tablet, 100 MG PO DAILY, (Reported) Entered as Reported by: BEATRIZ WILSON on 11/28/21 1015 Past Beawegd-Xpkawr-Puaapt Hx Patient Social History Smoking Status: Former Smoker (pt states he quit 6 days ago) Alcohol Use?: No (last drink was over 1 years ago) Substance type: Methamphetamine (former use), Marijuana (former use) Surgeries History of Surgeries: Yes Surgeries: Amputation (amputation of left second digit) Respiratory History of Respiratory Disorde: No Cardiovascular History of Cardiac Disorders: Yes Cardiac Disorders: Hypertension Neurological History of Neurological Disord: Yes Neurological Disorders: Neuropathy Genitourinary History of Genitourinary Disor: No Gastrointestinal History of Gastrointestinal Di: Yes Gastrointestinal Disorders: Gastrointestinal Bleed, Hepatitis (hep C), Cirrhosis (From hepatitis C and alcohol use) Musculoskeletal History of Musculoskeletal Dis: Yes Musculoskeletal Disorders: Amputee (amputation of left second digit) Endocrine History of Endocrine Disorders: No HEENT History of HEENT Disorders: No Loss of Vision: Bilateral Hearing Impairment: Hard of Hearing Cancer History of Cancer: No Psychosocial History of Psychiatric Problem: No Integumentary History of Skin or Integumenta: No Family Medical History Significant Family History: Cancer (pt states grandfather had cancer, unknown type), Diabetes (states parents did not have diabetes but unsure) Review of Systems-General Constitutional: chills, fever EENTM: blurred vision (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), vision loss (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), dental problems (missing teeth); No eye pain Respiratory: No cough, No dyspnea on exertion, No short of breath Cardiovascular: No chest pain; Hx of Intervention, palpitations (states maybe his heart has "weird beats" sometimes), syncope (states he loses consciousness about once per month during dizzy spells) Gastrointestinal: abdominal pain (RUQ); No constipation, No diarrhea; nausea; No vomiting; other (scarring across abdomen from murray) Genitourinary: No dysuria, No hematuria Musculoskeletal: No muscle cramps, No muscle weakness; other (pain in 5th left toe) Skin: dryness, other (tattoos on bilateral forearms) Psychiatric/Neurological: Denies Depressed, Denies Headache; Tingling Physical Exam-General Problems Physical Exam General Appearance: WD/WN, cachetic Eyes: Bilateral Eye PERRL, Bilateral Eye EOMI HEENT: pharynx normal; No scleral icterus (R), No scleral icterus (L) Neck: non-tender, supple Respiratory: lungs clear, normal breath sounds, no respiratory distress, no accessory muscle use Cardiovascular: regular rate, rhythm, no murmur Gastrointestinal: soft, distended (mildly), tenderness (in RUQ), other (scarring on abdomen) Rectal: deferred Back: no CVA tenderness, no vertebral tenderness Extremities: non-tender, no pedal edema, no calf tenderness, other (necrosis of left 5th toe ) Neurologic/Psychiatric: alert, oriented x 3 Skin: warm/dry, tattoos/piercings (tattoo bilateraly forearms) Lymphatic: no adenopathy (neck, axilla or groin) Assessment/Plan Assessment/Plan Assessment/Plan Dry gangrene of Left 5th Toe PVD Cirrhosis of liver Hepatitis C hx of Alcoholism, Esophageal Varices, GI Bleed Continue IVF and pain management. Keep NPO. Will schedule for left 5th toe amputation for tomorrow. Will get consent; discussed risks and complications not limited to pain, bleeding, infection and scar. Unforturnately, this toe is and there is no saving it. Will give some IV ABX 1/2 hour prior to OR. All questions answered to his satisfaction. Supervisory-Addendum Brief Verification & Attestation Participated in pt care: history, MDM, physical Personally performed: exam, history, MDM, supervision of care Care discussed with: Medical Student Procedures: n/a Verification and Attestation of Medical Student E/M Service A medical student performed and documented this service. I then reviewed and verified all information documented by the medical student and made modifications to such information, when appropriate. I personally performed a physical exam, medical decision making and then discussed any differences between the notes and made revisions as necessary to create one note. Dusty Herrera , 04/27/22 , 10:15 ROSALIO BETTENCOURT Apr 27, 2022 09:32 DUSTY HERRERA DO Apr 27, 2022 10:10
--- NOTE | 2022-04-27 12:42 | Progress Note - Hospitalist ---
JENS OCAMPO 04/27/22 1242: Subjective HPI/CC On Admission Date Seen by Provider: Apr 27, 2022 Time Seen by Provider: 10:40 Subjective/Events-last exam Patient is in his bed this morning, no family at bedside. He was asleep on entering the room but aroused when I began speaking. Patient reports that his pain has improved greatly today. His only complaint is fatigue and lethargy, which he states is due to a lack of sleep over the last 2 months as the pain from his toe would wake him up every 15-30 minutes. He is able to answer all questions but seems very groggy and fell asleep on physical exam. His WBC decreased to 9.2 today from 12.6 yesterday, Hg is down to 7.4 from 8.7 yesterda y, and sodium levels are up to 129 from 128 yesterday. The patient has no new complaints Review of Systems General: No Chills; Fatigue; No Malaise HEENT: No Head Aches, No Visual Changes, No Ear Pain Pulmonary: No Dyspnea, No Cough Cardiovascular: No: Chest Pain, Palpitations Gastrointestinal: No: Nausea, Vomiting, Abdominal Pain Genitourinary: No Dysuria, No Frequency, No Hematuria Musculoskeletal: foot pain (L 5th toe, improved); No: back pain Neurological: No: Weakness, Numbness Focused Exam Lactate Level 04/26/22 11:50: Lactic Acid Level 2.42*H 04/26/22 13:47: Lactic Acid Level 1.42 Objective Exam Vital Signs Vital Signs Date Time Temp Pulse Resp B/P (MAP) Pulse Ox O2 Delivery O2 Flow Rate FiO2 04/27/22 11:04 99 Room Air 04/27/22 09:00 118 18 104/72 (83) 04/27/22 00:01 37.0 04/26/22 16:40 21 Capillary Refill : Less Than 3 Seconds General Appearance: No Apparent Distress, WD/WN HEENT: PERRL/EOMI Neck: Non Tender, Supple Respiratory: Chest Non Tender, Lungs Clear, Normal Breath Sounds Cardiovascular: Regular Rate, Rhythm, No Edema, No Murmur Gastrointestinal: Non Tender, Soft Rectal: Deferred Back: No Vertebral Tenderness Extremity: Normal Capillary Refill, Non Tender, No Pedal Edema Neurologic/Psychiatric: Alert, Oriented x3 Skin: Normal Color, Warm/Dry Lymphatic: No Adenopathy Results/Procedures Lab Laboratory Tests 04/27/22 04:08 Patient resulted labs reviewed. Assessment/Plan Assessment and Plan Assess & Plan/Chief Complaint Gangrenous left 5th toe Severe PVD CKD Chronic liver failure Hyponatremia History of alcohol abuse Illicit drug use Current everyday smoker Hx of Esophageal varices Hx of GI bleed Cardiology consulted Underwent balloon angioplasty and stent placement in left lower extremity yesterday Surgery consulted Scheduled for amputation of the left 5th digit tomorrow IV fluid resuscitation Monitor and replace electrolytes as needed Continue plavix and aspirin Pain control as needed IV antibiotics Educated on smoking cessation Clinical Quality Measures DVT/VTE Risk/Contraindication: Contraindications-Mechi: Other *list below* Other: severe pvd cellulitis legs JULIETTE SUTTON DO 04/28/22 0523: Assessment/Plan Assessment and Plan Assess & Plan/Chief Complaint Transfer to fourth floor Plavix and aspirin Supervisory-Addendum Brief Verification & Attestation Participated in pt care: history, MDM, physical Personally performed: exam, history, MDM, supervision of care Care discussed with: Medical Student Procedures: n/a Results interpretation: Verified all documentation Verification and Attestation of Medical Student E/M Service A medical student performed and documented this service in my presence. I reviewed and verified all information documented by the medical student and made modifications to such information, when appropriate. I personally performed the physical exam and medical decision making. Juliette Sutton, Apr 28, 2022,05:23 JENS OCAMPO Apr 27, 2022 12:42 JULIETTE SUTTON DO Apr 28, 2022 05:23
--- NOTE | 2022-04-27 13:36 | Tele-ICU Consult ---
History of Present Illness History of Present Illness Date Seen by Provider: Apr 27, 2022 Time Seen by Provider: 08:34 Date of Admission (Tele-ICU Physician , consultation as per request of PCP Service provided via interactive audio and video telecommunications E-CARE system to a patient admitted to ICU bed in [facility]. Available chart/ vitals / labs / Images reviewed H&P is from ER notes Patient's information available about PMH, Shx, Fhx allergy reviewed inEMR. ROS as per chart and RN report Now in ICU, hemodynamically stable Video assessment done using teleICU camera, rest of exam as per RN Discussed with RN. Consultants: larry arnold Hospital course: Severe Sepsis Positive Skin infection gangrene left fifth toe NO covid testing done (04/26) 61 y M from ER with left fifth toe gangrene pain, ultrasound shows moderaate atherosclerosis in left lower ext mildly diminished flow with monophasic waveforms distally no stenosis or occlusion identified Peripheral angiogram total occlusion of mid left SFA successful deploy stents A/P Gangrenous left 5th toe 07/13 PVD - abx zosyn vanco - sx consulted -pain control PVD - s/p total occlusion of mid left SFA successful deploy stents 04/26 - plavix + asa CKD - moniotor - received IVF after cath ETOH and hepatitis C , with - Cirrhosis -Esophageal varices. gastritis = monitor for withdrawal Anemia - with h/o GIB with Esophageal varices ( scoped 11/2021) - monitor Smoker - COPD with CT findings of diffuse centrilobular emphysematous disease, bulla RLL Lines : periph , (Central Line Necessity Reviewed) Ortiz: void OG: Nutrition: Analgesia: Anxiety/ delirium VTE Prophylaxis: trino 30 Stress Ulcer Prophylaxis: PPi Plans in collaboration with bedside consultants and IM MDs. Discussed with RN to reach out if any questions or concerns A total of 15 minutes of critical care time was devoted to this patient today, required to treat and/or prevent further deterioration of critical care condition ( as above ) . I am remotely monitoring this patient from another state. I am unable to do the bedside exam, and history/physical and pertinent information is taken from other notes in the computer and bedside staff. . Reason for Visit: Left 5th toe gangrene, PVD Allergies and Home Medications Allergies Coded Allergies: No Known Drug Allergies (Unverified , 02/06/10) Home Medications Acetaminophen 500 Mg Tablet, 500 MG PO Q8H PRN for PAIN-MILD (1-4), (Reported) Pantoprazole Sodium 40 Mg Tablet.dr, 40 MG PO DAILY, (Reported) Rifaximin 200 Mg Tablet, 600 MG PO BID, (Reported) TAKES 3 (200MG) TABS Spironolactone 100 Mg Tablet, 100 MG PO DAILY, (Reported) Past Medical/Social/Family Hx Patient Social History Marrital Status: single Employed/Student: unemployed Tobacco Use?: Yes Tobacco type used: Cigarettes Smoking Status: Former Smoker (pt states he quit 6 days ago) Use of E-Cig and/or Vaping dev: No Substance use?: Yes Substance type: Methamphetamine (former use), Marijuana (former use) Alcohol Use?: No (last drink was over 1 years ago) Immunizations Up To Date Influenza Vaccine Up-to-Date: Yes; Up-to-Date First/Initial COVID19 Vaccinat: October 20, 2020 Second COVID19 Vaccination Macario: 2020 Tetanus Booster (TDap): Unknown Current Status Advance Directives: No Communicates: Verbally Primary Language: [place] Preferred Spoken Language: [place] Is interpretation needed?: No Review of Systems Constitutional: see HPI Focused Exam Lactate Level 04/26/22 11:50: Lactic Acid Level 2.42*H 04/26/22 13:47: Lactic Acid Level 1.42 Height, Weight, BMI Height: '" Weight: lbs. oz. kg; 15.00 BMI Method: Exam Exam Patient acknowledged, consented, and participated in this virtual visit which was conducted using real time audio/video Vital Signs Date Time Temp Pulse Resp B/P (MAP) Pulse Ox O2 Delivery O2 Flow Rate FiO2 04/27/22 13:00 116 12 96 Room Air 04/27/22 12:00 36.9 04/27/22 12:00 134 43 95/69 (78) 100 Room Air 04/27/22 11:04 99 Room Air 04/27/22 11:00 122 13 95/58 (70) 98 Room Air 04/27/22 10:00 112 21 114/65 (81) 98 Room Air 04/27/22 09:00 118 18 104/72 (83) 98 Room Air 04/27/22 09:00 93 Room Air 04/27/22 08:00 121 35 112/65 (81) 97 Room Air 04/27/22 07:08 99 Room Air 04/27/22 07:00 87 04/27/22 07:00 95 19 100/50 (67) 98 Room Air 04/27/22 04:00 98 20 100/61 (74) 99 Room Air 04/27/22 02:40 92 27 103/63 (76) 96 Room Air 04/27/22 01:40 70 10 116/57 (76) 100 Room Air 04/27/22 01:00 73 04/27/22 00:01 75 15 101/73 (82) 100 Room Air 04/27/22 00:01 37.0 04/26/22 20:59 Room Air 04/26/22 20:01 37.0 04/26/22 19:40 96 19 99/58 (72) 98 Room Air 04/26/22 19:00 112 04/26/22 18:31 98 Room Air 04/26/22 18:15 72 14 97/66 (76) 100 Room Air 04/26/22 18:00 77 11 106/63 (77) 100 Room Air 04/26/22 17:45 82 14 98/62 (74) 100 Room Air 04/26/22 17:30 80 15 111/68 (82) 100 Room Air 04/26/22 17:15 70 12 116/64 (81) 100 Room Air 04/26/22 17:00 70 10 132/77 (95) 99 Room Air 04/26/22 16:45 81 13 110/66 (81) 96 Room Air 04/26/22 16:40 36.1 78 99 21 04/26/22 16:31 36.5 89 14 109/68 (82) 100 Room Air 04/26/22 16:30 79 14 109/68 (82) 97 Room Air 04/26/22 16:15 84 16 114/67 (83) 96 Room Air 04/26/22 16:00 86 17 106/72 (83) 94 Room Air 04/26/22 15:57 85 04/26/22 15:55 100 Room Air 04/26/22 15:45 86 17 112/69 (83) 94 Room Air 04/26/22 14:28 78 18 110/74 99 Room Air I & O 04/27/22 07:00 Intake Total 2350 ml Balance 2350 ml Height & Weight Height: '" Weight: lbs. oz. kg; 15.00 BMI Method: General Appearance: No Apparent Distress, WD/WN HEENT: PERRL/EOMI Neck: Non Tender, Supple Respiratory: Chest Non Tender, Lungs Clear, Normal Breath Sounds Cardiovascular: Regular Rate, Rhythm, No Edema, No Murmur Capillary Refill: Less Than 3 Seconds Peripheral Pulses: 2+ Dorsalis Pedis (R), 2+ Left Dors-Pedis (L), 2+ Radial Pulses (R), 2+ Radial Pulses (L) Gastrointestinal: soft, distended (mildly), tenderness (in RUQ), other (scarring on abdomen) Extremity: Normal Capillary Refill, Non Tender, No Pedal Edema Neurologic/Psychiatric: Alert, Oriented x3 Skin: Normal Color, Warm/Dry Lymphatic: No Adenopathy Results Lab Laboratory Tests 04/26/22 11:50 04/27/22 04:08 Assessment/Plan Assessment/Plan 1 ADALID MILTON MD Apr 27, 2022 13:36
[2022-04-27] MEDS ORDERED: LACT10SO3 PO (15:09)
[2022-04-27] MEDS ORDERED: FURO40TA4 PO (15:09)
[2022-04-27] MEDS ORDERED: SPIR100T4 PO (15:09)
[2022-04-27 16:00] VITALS: BP 98/52
[2022-04-27] MEDS: VANCOMYCIN 1 GM/NS 250 ML IVPB IV SCH ×2 (17:44)
[2022-04-27 19:27] VITALS: BP 89/52
[2022-04-27 21:00] VITALS: BP 88/52
[2022-04-27 21:30] VITALS: BP 88/52
[2022-04-27] MEDS: ENOXAPARIN INJECTION 30 MG/0.3 ML SYR SC SCH (21:39)
[2022-04-27] MEDS ORDERED: NS (IVPB) 250 ML IV PRN (22:15)
[2022-04-27 23:30] VITALS: BP 97/57
[2022-04-28] VITALS (11 sets, daily range): BP systolic 84–102; BP diastolic 51–65
[2022-04-28] MEDS: PIPERACILLIN SODIUM/TAZOBACTAM 4.5 GM in NS (IVPB) 100 ML IV SCH ×3 (03:21→20:18)
[2022-04-28] MEDS: NS IV 1000 ML 1,000 ML IV SCH (03:22)
[2022-04-28 06:02] LABS: BASOPHILS # (AUTO) 0.1 10^3/uL (0.0-0.1); BASOPHILS % (AUTO) 1 % (0-10); EOSINOPHILS # (AUTO) 0.3 10^3/uL (0.0-0.3); EOSINOPHILS % (AUTO) 3 % (0-10); HEMATOCRIT 24 % (40-54); HEMOGLOBIN 7.1 g/dL (13.3-17.7); LYMPHOCYTES # (AUTO) 0.7 10^3/uL (1.0-4.0); LYMPHOCYTES % (AUTO) 7 % (12-44); MEAN CORPUSCULAR HEMOGLOBIN 21 pg (25-34); MEAN CORPUSCULAR HGB CONC 30 g/dL (32-36); MEAN CORPUSCULAR VOLUME 69 fL (80-99); MEAN PLATELET VOLUME 10.1 fL (9.0-12.2); MONOCYTES # (AUTO) 1.5 10^3/uL (0.0-1.0); MONOCYTES % (AUTO) 15 % (0-12); NEUTROPHILS # (AUTO) 7.4 10^3/uL (1.8-7.8); NEUTROPHILS % (AUTO) 73 % (42-75); PLATELET COUNT 400 10^3/uL (130-400); WHITE BLOOD COUNT 10.1 10^3/uL (4.3-11.0)
[2022-04-28 06:24] LABS: ALBUMIN 2.7 GM/DL (3.2-4.5); BILIRUBIN,TOTAL 0.7 MG/DL (0.1-1.0); CALCIUM 8.3 MG/DL (8.5-10.1); CREATININE SERUM 1.41 MG/DL (0.60-1.30); POTASSIUM 4.8 MMOL/L (3.6-5.0); TOTAL PROTEIN 6.8 GM/DL (6.4-8.2)
[2022-04-28 06:38] LABS: ANISOCYTOSIS MODERATE; BAND NEUTROPHILS 2 %; EOSINOPHILS % (MANUAL) 6 %; HYPOCHROMASIA MARKED; LYMPHOCYTES % (MANUAL) 4 %; MICROCYTOSIS MODERATE; MONOCYTES % (MANUAL) 11 %; NEUTROPHILS % (MANUAL) 77 %
--- NOTE | 2022-04-28 07:21 | Physician Query Clarification ---
PQ-Uncertain Diagnosis Admission/Discharge Admission Date: Apr 26, 2022 at 15:55 Discharge Date: Dr. Patel, The medical record reflects the following clinical scenario: History/Risk Factors: cellulitis and gangrene Lt toe w/kathleen arteriosclerosis SFA Clinical Findings: WBC 12.6, Lactic acid 2.42, T 36.1, P 101, R 18 Treatment: Stent Lt. SFA, IV Piperacillin, IV Vancomycin Question: Is severe sepsis a clinically valid diagnosis? Severe sepsis was documented in the Dr. Altamirano's consult with no further documentation in the medical record. Please document a response in Progress Note or Discharge Summary. 1. Yes, clinically valid, condition resolved. 2. No, condition ruled out. 3. Other, with explanation of clinical findings. 4. Undetermined, no explanation for clinical findings. PHYSICIAN RESPONSE Diagnosis clinically valid: Undetermined In responding to this query, please exercise your independent professional judgment. The purpose of this communication is to more accurately reflect the complexity of your patients condition. The fact that a question is asked does not imply that any particular answer is desired or expected. Thank you for your timely response to this clarification. Requestors name: [employer] THIS PHYSICIAN QUERY FORM IS A PERMANENT PART OF THE MEDICAL RECORD SOLIT[employer]IO NINA Apr 28, 2022 07:21 RADHA PATEL MD Apr 28, 2022 17:20
[2022-04-28] MEDS: RT-ALBUTEROL/IPRATROPIUM 3 ML (DUONEB) VIAL INH SCH ×4 (07:57→19:44)
[2022-04-28] MEDS: DOCUSATE SODIUM 100 MG (COLACE) CAP PO SCH ×2 (08:26→20:18)
[2022-04-28] MEDS: SENNOSIDES 8.6 MG (SENOKOT) TAB PO SCH ×2 (08:27→20:18)
[2022-04-28] MEDS: CLOPIDOGREL 75 MG (PLAVIX) TABLET PO SCH (08:27)
[2022-04-28] MEDS: ASPIRIN E.C. 81 MG (ECOTRIN) TAB PO SCH (08:27)
[2022-04-28] MEDS: PANTOPRAZOLE 40 MG (PROTONIX) TAB PO SCH (08:27)
[2022-04-28] MEDS: lisINopril 5 MG (PRINIVIL) TABLET PO SCH (08:27)
--- NOTE | 2022-04-28 08:37 | Progress Note - Surgery ---
MISTY CATES 04/28/22 0837: Subjective Date Seen by a Provider: Apr 28, 2022 Time Seen by a Provider: 07:45 Subjective/Events-last exam Patient resting comfortably in bed. States has been NPO, except he had a cup of ice cubes around 6 am. Still okay with us moving forward with amputation toda y.No further complaints overnight. Patient has had intermittent hypotension and tachycardia overnight. Review of Systems General: No Chills, No Night Sweats HEENT: No Head Aches, No Visual Changes Pulmonary: No Dyspnea; Cough (dry ) Cardiovascular: No: Chest Pain, Palpitations Gastrointestinal: No: Nausea, Vomiting, Abdominal Pain Genitourinary: No Dysuria, No Frequency Neurological: No: Weakness, Numbness Focused Exam Lactate Level 04/26/22 11:50: Lactic Acid Level 2.42*H 04/26/22 13:47: Lactic Acid Level 1.42 Objective Exam Vital Signs Date Time Temp Pulse Resp B/P (MAP) Pulse Ox O2 Delivery O2 Flow Rate FiO2 04/28/22 07:57 97 Room Air 04/28/22 07:46 37.2 98 16 101/57 (72) 96 Room Air 04/28/22 03:41 36.8 97 18 94/54 (67) 96 Room Air 04/28/22 00:36 36.7 96 18 95/51 (66) 94 Room Air 04/27/22 23:30 36.7 103 18 97/57 (70) 94 Room Air 04/27/22 21:30 36.8 96 20 88/52 (64) 95 Room Air 04/27/22 20:10 Room Air 04/27/22 19:27 36.9 103 20 89/52 (64) 97 Room Air 04/27/22 19:06 Room Air 04/27/22 16:00 36.8 116 22 98/52 (67) 97 Room Air 04/27/22 15:00 114 22 100 Room Air 04/27/22 14:52 100 Room Air 04/27/22 13:30 122 32 106/56 (73) 99 Room Air 04/27/22 13:00 116 04/27/22 13:00 116 12 96 Room Air 04/27/22 12:00 36.9 04/27/22 12:00 134 43 95/69 (78) 100 Room Air 04/27/22 11:04 99 Room Air 04/27/22 11:00 122 13 95/58 (70) 98 Room Air 04/27/22 10:00 112 21 114/65 (81) 98 Room Air 04/27/22 09:00 118 18 104/72 (83) 98 Room Air 04/27/22 09:00 93 Room Air I & O 04/28/22 07:00 Intake Total 1970 ml Output Total 675 ml Balance 1295 ml Capillary Refill : Less Than 3 Seconds General Appearance: No Apparent Distress, WD/WN HEENT: PERRL/EOMI Neck: Non Tender, Supple Respiratory: Chest Non Tender, Lungs Clear, Normal Breath Sounds Cardiovascular: Regular Rate, Rhythm (borderline tachy), No Edema, No Murmur Peripheral Pulses: 2+ Dorsalis Pedis (R), 2+ Left Dors-Pedis (L), 2+ Radial Pulses (R), 2+ Radial Pulses (L) Gastrointestinal: soft, distended (slight; in comparison to baseline according to pt), tenderness (in RUQ) Extremity: Non Tender, Other (tip of left pinky toe, black and necrotic. Poor vascular supply to LLE) Neurologic/Psychiatric: Alert, Oriented x3 Skin: Normal Color, Warm/Dry Results Lab Laboratory Tests 04/28/22 05:10: White Blood Count 10.1, Red Blood Count 3.46L, Hemoglobin 7.1L, Hematocrit 24L, Mean Corpuscular Volume 69L, Mean Corpuscular Hemoglobin 21L, Mean Corpuscular Hemoglobin Concent 30L, Red Cell Distribution Width 18.6H, Platelet Count 400, Mean Platelet Volume 10.1, Immature Granulocyte % (Auto) 1, Neutrophils (%) (Auto) 73, Lymphocytes (%) (Auto) 7L, Monocytes (%) (Auto) 15H, Eosinophils (%) (Auto) 3, Basophils (%) (Auto) 1, Neutrophils # (Auto) 7.4, Lymphocytes # (Auto) 0.7L, Monocytes # (Auto) 1.5H, Eosinophils # (Auto) 0.3, Basophils # (Auto) 0.1, Immature Granulocyte # (Auto) 0.1, Neutrophils % (Manual) 77, Lymphocytes % (Manual) 4, Monocytes % (Manual) 11, Eosinophils % (Manual) 6, Band Neutrophils 2, Hypochromasia MARKED, Anisocytosis MODERATE, Microcytosis MODERATE, Sodium Level 131L, Potassium Level 4.8, Chloride Level 105, Carbon Dioxide Level 16L, Anion Gap 10, Blood Urea Nitrogen 24H, Creatinine 1.41H, Estimat Glomerular Filtration Rate 56, BUN/Creatinine Ratio 17, Glucose Level 108H, Calcium Level 8.3L, Corrected Calcium 9.3, Total Bilirubin 0.7, Aspartate Amino Transf (AST/SGOT) 23, Alanine Aminotransferase (ALT/SGPT) 13, Alkaline Phosphatase 92, Total Protein 6.8, Albumin 2.7L Microbiology 04/26/22 Blood Culture - Preliminary, Resulted No growth Assessment/Plan Assessment/Plan Assessment/Plan Dry gangrene of Left 5th Toe PVD Cirrhosis of liver Hepatitis C hx of Alcoholism, Esophageal Varices, GI Bleed Continue IVF and pain management. Keep NPO. left 5th toe amputation today. Unforturnately, this toe is and there is no saving it. Will give some IV ABX 1/2 hour prior to OR. All questions answered to his satisfaction, patient undestands risks and potential complications of procedure as discussed yesterday. Is okay with moving forward with amputation today. Clinical Quality Measures DVT/VTE Risk/Contraindication: Contraindications-Mechi: Other *list below* Other: severe pvd cellulitis legs DEREK MORRISON DO 04/28/22 1015: Subjective Time Seen by a Provider: 09:36 Subjective/Events-last exam Pt seen just prior to going down to OR, no new complaints. Review of Systems General: No Chills, No Night Sweats Pulmonary: No Dyspnea; Cough (dry ) Cardiovascular: No: Chest Pain, Palpitations Gastrointestinal: No: Nausea, Vomiting Objective Exam General Appearance: No Apparent Distress, Thin HEENT: PERRL/EOMI Respiratory: Lungs Clear, Normal Breath Sounds, No Accessory Muscle Use, No Respiratory Distress Cardiovascular: Regular Rate, Rhythm (borderline tachy), No Murmur Gastrointestinal: soft, distended (slight; in comparison to baseline according to pt), tenderness (in RUQ) Extremity: Other (tip of left pinky toe, black and necrotic. Poor vascular supply to LLE) Assessment/Plan Assessment/Plan Assessment/Plan Dry gangrene of Left 5th Toe PVD Cirrhosis of liver Hepatitis C hx of Alcoholism, Esophageal Varices, GI Bleed Continue IVF and pain management. Keep NPO. left 5th toe amputation today. Unforturnately, this toe is and there is no saving it. Will give some IV ABX 1/2 hour prior to OR. All questions answered to his satisfaction, patient undestands risks and potential complications of procedure as discussed yesterday. Is okay with moving forward with amputation today. Supervisory-Addendum Brief Verification & Attestation Participated in pt care: history, MDM, physical Personally performed: exam, history, MDM, supervision of care Care discussed with: Medical Student Procedures: n/a Verification and Attestation of Medical Student E/M Service A medical student performed and documented this service. I then reviewed and verified all information documented by the medical student and made modification s to such information, when appropriate. I personally performed a physical exam, medical decision making and then discussed any differences between the notes and made revisions as necessary to create one note. Derek Morrison , 04/28/22 , 10:17 MISTY CATES Apr 28, 2022 08:37 DEREK MORRISON DO Apr 28, 2022 10:15
--- NOTE | 2022-04-28 09:24 | Cardiology Progress Note ---
Subjective Date Seen by Provider: Apr 28, 2022 Time Seen by Provider: 08:00 Subjective/Events-last exam Patient was seen at bedside, laying down comfortably, feeling better. Good pounding pedal pulse was detected on the left Review of Systems General: No Chills, No Night Sweats, No Fatigue, No Malaise, No Appetite, No Other HEENT: No Head Aches, No Visual Changes, No Eye Pain, No Ear Pain, No Dysphasia, No Sinus Congestion, No Post Nasal Drip, No Sore Throat, No Other Pulmonary: No Dyspnea, No Cough, No Pleuritic Chest Pain, No Other Cardiovascular: No: Chest Pain, Palpitations, Orthopnea, Paroxysmal Noc. Dyspnea, Edema, Lt Headedness, Other Focused Exam Lactate Level 04/26/22 11:50: Lactic Acid Level 2.42*H 04/26/22 13:47: Lactic Acid Level 1.42 Objective-Cardiology Exam Last Set of Vital Signs Vital Signs 04/26/22 04/28/22 04/28/22 16:40 07:46 07:57 Temp 37.2 Pulse 98 Resp 16 B/P (MAP) 101/57 (72) Pulse Ox 97 O2 Delivery Room Air FiO2 21 I&O Intake and Output 04/28/22 00:00 Intake Total 2970 ml Output Total 675 ml Balance 2295 ml Intake Oral 1370 ml IV Total 1600 ml Output Urine Total 675 ml # Bowel Movements 1 General: Alert, Oriented X3, Cooperative HEENT: Atraumatic, PERRLA Neck: Supple, No JVD, No Thyromegaly Lungs: Clear to Auscultation, Normal Air Movement Heart: Regular Rate, Normal S1, Normal S2, Other (Systolic murmur at the left sternal border) Abdomen: Normal Bowel Sounds, Soft, No Tenderness, No Hepatosplenomegaly, No Masses Extremities: No Edema, Normal Pulses, No Tenderness/Swelling, Other (Gangrene: The left fifth toe) Skin: No Rashes, No Breakdown, No Significant Lesion Neuro: Normal Gait, Normal Speech, Strength at 5/5 X4 Ext, Normal Tone, Sensation Intact Psych/Mental Status: Mental Status NL, Mood NL Results Lab Laboratory Tests 04/28/22 05:10 A/P-Cardiology Admission Diagnosis PVD Left 5th toe gangrene Hep C Cirrhosis Assessment/Plan Left 5th toe cellulitis with gangrene, started on antibiotic. Lower extremity US done showing moderate atherosclerosis in the left lower extremity. Peripheral angiogram done on April 26, 2022 with total occlusion of the left SFA, successful balloon angioplasty and deployment of Supera stent 5.5 x 60 mm with excellent results. Significant improvement in the blood flow down to the foot. Patient has palpable dorsalis pedis pulse on the left. Good perfusion was noted. Schedule for amputation of the fifth toe today. Anemia, worsening H&H, probably secondary to IV fluid and underlying chronic anemia. Does not appear to have active GI loss at this time. Continue to monitor closely and transfuse as needed Peripheral arterial disease, angiogram done on April 27, 2020. Status post stenting of the left SFA with Supera 5.5 x 16 mm with excellent results. Total occlusion of the right SFA that would need intervention at a later point. Currently on aspirin and Plavix. I will monitor closely for tolerance and response Hypotension, cannot tolerate ALESSANDRA inhibitor at this time due to borderline hypote nsion. CKD, continue IV fluids, continue to monitor renal function Cirrhosis d/t Hep C and hx of alcoholism Hx esophageal varices Hx of GI bleed. Tobaccoism, educated on smoking cessation History of illicit drug use. RADHA HERNANDEZ MD Apr 28, 2022 09:24
[2022-04-28] MEDS ORDERED: LIDOCAINE 1% INJ 10 ML VIAL ONE (10:01)
[2022-04-28] MEDS ORDERED: MIDAZOLAM 2 MG/2 ML (VERSED) VIAL ONE ×2 (10:06→10:40)
[2022-04-28] MEDS ORDERED: PROPOFOL INJECTION 50 ML IV ONE (10:12)
[2022-04-28] MEDS ORDERED: KETAMINE 50 MG/5 ML SYRINGE ONE (10:12)
[2022-04-28] MEDS ORDERED: LACTATED RINGERS 1,000 ML IV PRN (10:15)
[2022-04-28] MEDS ORDERED: PHENYLEPHRINE 100 MCG/ML 10 ML (ANESTHESIA) SYR ONE ×2 (10:21→10:45)
--- NOTE | 2022-04-28 10:59 | Progress Note-Post Operative ---
Post-Operative Progess Note Surgeon (s)/Manufacturing Shift Supervisor (s) Surgeon DUSTY HERRERA DO Manufacturing Shift Supervisor: BARBARA AcevedoII Pre-Operative Diagnosis Gangrene, Critical limb ischemia Post-Operative Diagnosis Gangrene left 5th toe, dry Procedure & Operative Findings Date of Procedure 04/28/22 Procedure Performed/Findings Amputation of left 5th toe at [facility] joint Anesthesia Type IV sedation by Anesthesia Estimated Blood Loss Estimated blood loss (mL): less than 10ml Specimens/Packing Specimens Removed left 5th toe DUSTY HERRERA DO Apr 28, 2022 10:59
--- NOTE | 2022-04-28 13:35 | Progress Note - Hospitalist ---
TERRENCEJENS 04/28/22 1335: Subjective HPI/CC On Admission Date Seen by Provider: Apr 28, 2022 Subjective/Events-last exam Patient is awake and alert in his bed this morning. He is still fatigued and lethargic which he attributes to not being able to sleep over the past two months. He reports that his pain is currently well-controlled. He has a slight pain in his right flank which he attributes to sleeping/laying on that side, it is not tender to palpation. His hemoglobin decreased from 7.4 yesterday to 7.1 today, and his sodium improved from 129 yesterday to 131 today. An echo performed yesterday showed a LVEF of 65-70%, grade 1 diastolic dysfunction of the left ventricle, trivial mitral and tricuspid regurgitation, and physiologic pulmonic regurgitation. He is preparing to undergo amputation of his left fifth toe this morning. The patient has no new complaints and feels well overall. Review of Systems General: No Chills; Fatigue HEENT: No Eye Pain, No Ear Pain Pulmonary: No Dyspnea, No Cough Cardiovascular: No: Chest Pain, Palpitations Gastrointestinal: No: Nausea, Vomiting, Abdominal Pain Genitourinary: No Dysuria, No Frequency Musculoskeletal: No: neck pain, back pain Neurological: No: Weakness, Numbness, Incoordination, Change in speech Focused Exam Lactate Level 04/26/22 11:50: Lactic Acid Level 2.42*H 04/26/22 13:47: Lactic Acid Level 1.42 Objective Exam Vital Signs Vital Signs Date Time Temp Pulse Resp B/P (MAP) Pulse Ox O2 Delivery O2 Flow Rate FiO2 04/28/22 11:55 36.1 100 16 94/53 (67) 94 Room Air 04/28/22 11:20 5.00 04/26/22 16:40 21 Capillary Refill : Less Than 3 SecondsLess Than 3 Seconds General Appearance: No Apparent Distress, Thin HEENT: PERRL/EOMI Neck: Non Tender, Supple Respiratory: Chest Non Tender, Lungs Clear, Normal Breath Sounds, No Accessory Muscle Use Cardiovascular: Regular Rate, Rhythm, No Edema, No Murmur, Normal Peripheral Pulses Gastrointestinal: Non Tender, Soft Rectal: Deferred Back: No Vertebral Tenderness Extremity: Non Tender, No Calf Tenderness, No Pedal Edema Neurologic/Psychiatric: Alert, Oriented x3 Skin: Normal Color, Warm/Dry Lymphatic: No Adenopathy Results/Procedures Lab Laboratory Tests 04/28/22 05:10 Patient resulted labs reviewed. Assessment/Plan Assessment and Plan Assess & Plan/Chief Complaint Gangrenous left 5th toe Severe PVD Anemia CKD Chronic liver failure Hyponatremia History of alcohol abuse Illicit drug use Current everyday smoker Hx of Esophageal varices Hx of GI bleed Monitor Hg, transfuse as needed Cardiology consulted Underwent balloon angioplasty and stent placement in left lower extremity 04/26 Surgery consulted Undergoing amputation of left fifth digit today IV fluid resuscitation Monitor and replace electrolytes as needed Continue plavix and aspirin Pain control as needed IV antibiotics Educated on smoking cessation Clinical Quality Measures DVT/VTE Risk/Contraindication: Contraindications-Mechi: Other *list below* Other: severe pvd cellulitis legs JULIETTE LOCKE DO 04/29/22 0602: Objective Exam General Appearance: No Apparent Distress, WD/WN, Chronically ill, Thin Assessment/Plan Assessment and Plan Assess & Plan/Chief Complaint Appreciate Dr. Morrison Pain control End-stage liver disease precludes anything but a poor prognosis Supervisory-Addendum Brief Verification & Attestation Participated in pt care: history, MDM, physical Personally performed: exam, history, MDM, supervision of care Care discussed with: Medical Student Procedures: n/a Results interpretation: Verified all documentation Verification and Attestation of Medical Student E/M Service A medical student performed and documented this service in my presence. I reviewed and verified all information documented by the medical student and made modifications to such information, when appropriate. I personally performed the physical exam and medical decision making. Juliette Locke, Apr 29, 2022,06:01 JNES OCAMPO Apr 28, 2022 13:35 JULIETTE LOCKE DO Apr 29, 2022 06:02
--- NOTE | 2022-04-28 14:59 | Anesthesia-General Post-Op ---
MAC Patient Condition Mental Status/LOC: Same as Preop Cardiovascular: Satisfactory Nausea/Vomiting: Absent Respiratory: Satisfactory Pain: Controlled Complications: Absent Post Op Complications Complications None Follow Up Care/Instructions Patient Instructions None needed. Anesthesiology Discharge Order Discharge Order Patient is doing well, no complaints, stable vital signs, no apparent adverse anesthesia problems. No complications reported per nursing. NIDIA RODRÍGUEZ CRNA Apr 28, 2022 14:59
[2022-04-28] MEDS ORDERED: TROUGH ORDER-PHARMACY XX NR (16:00)
[2022-04-28] MEDS: VANCOMYCIN 1 GM/NS 250 ML IVPB IV SCH ×2 (16:56)
--- NOTE | 2022-04-28 19:01 | OPERATIVE REPORT ---
DATE OF SERVICE: 04/28/2022 PREOPERATIVE DIAGNOSIS: Gangrene, left fifth toe. POSTOPERATIVE DIAGNOSIS: Gangrene, left fifth toe, pending pathology. PROCEDURE: Amputation of left fifth toe at the MIP joint. SURGEON: Derek Herrera MD CANVAS B[employer]ER JUMPBASTING: Aquiles Singh MS4. ANESTHESIA: IV sedation by anesthesia. SPECIMENS: Left fifth toe. BLOOD LOSS: Less than 5 mL FLUIDS: Per anesthesia. POSTOPERATIVE CONDITION: Stable. INDICATIONS FOR PROCEDURE: The patient is a 61-year-old male with gangrene of the left fifth toe and will need to have this removed the dry gangrene. FINDINGS: The patient had a left fifth toe removed. DESCRIPTION OF PROCEDURE: After informed consent was obtained, the patient was brought to the operating room and placed on table in supine position. He was sterilely prepped and draped in normal fashion, then performed an ankle block as well as a ring block at the left fifth toe. I then made an incision in the skin about mcfp up with first a #15 blade, carried down through skin into subcutaneous tissue. Then, deepened down to subcutaneous tissue with Bovie electrocautery, going down to the bone and then tracking superiorly along the bone towards the MIP joint, able to then get around it, used a little bit of force to get it out cutting the ligaments and the vasculature. Once we were able to get this removed, suctioned it out. There is a little bit of bleeding. This was controlled with Bovie electrocautery. I then elected to close this incision with a 2-0 Prolene and two interrupted vertical mattress sutures. This closed nicely. The area was cleaned and dried and a pressure dressing placed. The patient tolerated the procedure. Sponge and needle count correct at the end of the case and he was transferred to recovery room in stable condition. Job ID: [id number] DocumentID: [id number] Dictated Date: 04/28/2022 11:03:31 Stock Unloader Date: 04/28/2022 19:00:00 Dictated By: DEREK HERRERA DO
[2022-04-28] MEDS: ENOXAPARIN INJECTION 30 MG/0.3 ML SYR SC SCH (19:59)
[2022-04-29] VITALS (10 sets, daily range): BP systolic 98–125; BP diastolic 53–72
[2022-04-29] MEDS: NS IV 1000 ML 1,000 ML IV SCH (02:04)
[2022-04-29] MEDS: PIPERACILLIN SODIUM/TAZOBACTAM 4.5 GM in NS (IVPB) 100 ML IV SCH ×3 (04:24→19:59)
[2022-04-29 05:31] LABS: BASOPHILS # (AUTO) 0.1 10^3/uL (0.0-0.1); BASOPHILS % (AUTO) 1 % (0-10); EOSINOPHILS # (AUTO) 0.3 10^3/uL (0.0-0.3); EOSINOPHILS % (AUTO) 4 % (0-10); HEMATOCRIT 24 % (40-54); LYMPHOCYTES # (AUTO) 0.7 10^3/uL (1.0-4.0); LYMPHOCYTES % (AUTO) 7 % (12-44); MEAN CORPUSCULAR HEMOGLOBIN 20 pg (25-34); MEAN CORPUSCULAR HGB CONC 29 g/dL (32-36); MEAN CORPUSCULAR VOLUME 69 fL (80-99); MEAN PLATELET VOLUME 9.3 fL (9.0-12.2); MONOCYTES # (AUTO) 1.4 10^3/uL (0.0-1.0); MONOCYTES % (AUTO) 15 % (0-12); NEUTROPHILS # (AUTO) 6.9 10^3/uL (1.8-7.8); NEUTROPHILS % (AUTO) 73 % (42-75); PLATELET COUNT 432 10^3/uL (130-400); WHITE BLOOD COUNT 9.5 10^3/uL (4.3-11.0)
[2022-04-29 05:47] LABS: ALBUMIN 2.6 GM/DL (3.2-4.5)
[2022-04-29 05:48] LABS: POTASSIUM 4.4 MMOL/L (3.6-5.0)
[2022-04-29 05:49] LABS: CALCIUM 8.3 MG/DL (8.5-10.1)
[2022-04-29 05:50] LABS: TOTAL PROTEIN 6.8 GM/DL (6.4-8.2)
[2022-04-29 05:52] LABS: BILIRUBIN,TOTAL 0.8 MG/DL (0.1-1.0)
[2022-04-29 05:54] LABS: CREATININE SERUM 1.06 MG/DL (0.60-1.30)
[2022-04-29] MEDS: RT-ALBUTEROL/IPRATROPIUM 3 ML (DUONEB) VIAL INH SCH ×4 (07:57→19:20)
[2022-04-29] MEDS: SENNOSIDES 8.6 MG (SENOKOT) TAB PO SCH ×2 (08:24→20:01)
[2022-04-29] MEDS: DOCUSATE SODIUM 100 MG (COLACE) CAP PO SCH ×2 (08:24→20:01)
[2022-04-29] MEDS: PANTOPRAZOLE 40 MG (PROTONIX) TAB PO SCH (08:25)
--- NOTE | 2022-04-29 08:27 | Cardiology Progress Note ---
Subjective Date Seen by Provider: Apr 29, 2022 Time Seen by Provider: 08:26 Subjective/Events-last exam Patient was seen at bedside, laying down comfortably, feeling well. No new complaint Review of Systems General: No Chills, No Night Sweats, No Fatigue, No Malaise, No Appetite, No Other HEENT: No Head Aches, No Visual Changes, No Eye Pain, No Ear Pain, No Dysphas ia, No Sinus Congestion, No Post Nasal Drip, No Sore Throat, No Other Pulmonary: No Dyspnea, No Cough, No Pleuritic Chest Pain, No Other Cardiovascular: No: Chest Pain, Palpitations, Orthopnea, Paroxysmal Noc. Dyspnea, Edema, Lt Headedness, Other Focused Exam Lactate Level 04/26/22 11:50: Lactic Acid Level 2.42*H 04/26/22 13:47: Lactic Acid Level 1.42 Objective-Cardiology Exam Last Set of Vital Signs Vital Signs 04/26/22 04/29/22 04/29/22 16:40 07:25 07:57 Temp 37.4 Pulse 110 Resp 18 B/P (MAP) 117/72 (87) Pulse Ox 93 O2 Delivery Room Air FiO2 21 I&O Intake and Output 04/29/22 00:00 Intake Total 320 ml Output Total 350 ml Balance -30 ml Intake Oral 320 ml Output Urine Total 350 ml # Voids 3 # Bowel Movements 1 General: Alert, Oriented X3, Cooperative HEENT: Atraumatic, PERRLA Neck: Supple, No JVD, No Thyromegaly Lungs: Clear to Auscultation, Normal Air Movement Heart: Regular Rate, Normal S1, Normal S2, Other (Systolic murmur at the left sternal border) Abdomen: Normal Bowel Sounds, Soft, No Tenderness, No Hepatosplenomegaly, No Masses Extremities: No Edema, Normal Pulses, No Tenderness/Swelling, Other (Status post amputation of his toes) Skin: No Rashes, No Breakdown, No Significant Lesion Neuro: Normal Gait, Normal Speech, Strength at 5/5 X4 Ext, Normal Tone, Sensation Intact Psych/Mental Status: Mental Status NL, Mood NL Results Lab Laboratory Tests 04/29/22 05:20 A/P-Cardiology Admission Diagnosis PVD Left 5th toe gangrene Hep C Cirrhosis Assessment/Plan Left 5th toe cellulitis with gangrene, started on antibiotic. Lower extremity US done showing moderate atherosclerosis in the left lower extremity. Peripheral angiogram done on April 26, 2022 with total occlusion of the left SFA, successful balloon angioplasty and deployment of Supera stent 5.5 x 60 mm with excellent results. Significant improvement in the blood flow down to the foot. Patient has palpable dorsalis pedis pulse on the left. Good perfusion was noted. Status post amputation of the fifth toe done on April 28, 2022, recovering well. Anemia, worsening H&H, probably secondary to IV fluid and underlying chronic anemia. Does not appear to have active GI loss at this time. Will transfuse 1 unit packed RBCs and monitor. Continue on aspirin and Plavix Peripheral arterial disease, angiogram done on April 27, 2020. Status post stenting of the left SFA with Supera 5.5 x 16 mm with excellent results. Total occlusion of the right SFA that would need intervention at a later point. Restart aspirin and Plavix and monitor Hypotension, cannot tolerate ALESSANDRA inhibitor at this time due to borderline hypotension. CKD, continue IV fluids, continue to monitor renal function Cirrhosis d/t Hep C and hx of alcoholism Hx esophageal varices Hx of GI bleed. Tobaccoism, educated on smoking cessation History of illicit drug use. RADHA HERNANDEZ MD Apr 29, 2022 08:27
--- NOTE | 2022-04-29 08:29 | Progress Note - Surgery ---
FLAKITA ALARCON 04/29/22 0829: Subjective Date Seen by a Provider: Apr 29, 2022 Time Seen by a Provider: 08:24 Subjective/Events-last exam Patient is laying in bed uncomfortably Patients pain this morning is a 7/10 in his post op incision Is also complaining of hip pain from laying in bed Was able to eat last night, but states he did not remember much after surgery yesterday Was able to ambulate to us bathroom Denies any N/V/D, body aches, chills, or fever Using IS Labs reviewed Focused Exam Lactate Level 04/26/22 11:50: Lactic Acid Level 2.42*H 04/26/22 13:47: Lactic Acid Level 1.42 Objective Exam Vital Signs Date Time Temp Pulse Resp B/P (MAP) Pulse Ox O2 Delivery O2 Flow Rate FiO2 04/29/22 07:57 93 Room Air 04/29/22 07:25 37.4 110 18 117/72 (87) 93 Room Air 04/29/22 04:00 36.5 92 16 108/55 (72) 94 Room Air 04/29/22 00:00 36.9 97 16 103/61 (75) 95 Room Air 04/28/22 21:00 Room Air 04/28/22 19:45 90 Room Air 04/28/22 19:42 37.3 105 20 102/65 (77) 93 Room Air 04/28/22 15:21 36.9 99 20 102/51 (68) 95 Room Air 04/28/22 15:16 96 Room Air 04/28/22 11:55 36.1 100 16 94/53 (67) 94 Room Air 04/28/22 11:45 Room Air 04/28/22 11:40 36.4 24 99/53 (68) 95 Room Air 04/28/22 11:34 Room Air 04/28/22 11:30 24 92/57 (69) 95 Room Air 04/28/22 11:20 22 84/57 (66) 100 OxyMask 5.00 04/28/22 11:20 OxyMask 5.00 04/28/22 11:10 24 84/59 (67) 98 OxyMask 5.00 04/28/22 11:03 OxyMask 5.00 04/28/22 11:03 37.3 20 87/55 (66) 100 OxyMask 5.00 04/28/22 09:00 Room Air I & O 04/29/22 07:00 Intake Total 720 ml Output Total 850 ml Balance -130 ml Capillary Refill : Less Than 3 SecondsLess Than 3 Seconds General Appearance: No Apparent Distress, Chronically ill, Thin HEENT: PERRL/EOMI; No Scleral Icterus (L), No Scleral Icterus (R) Neck: Non Tender, Supple Respiratory: Chest Non Tender, Lungs Clear, Normal Breath Sounds, No Accessory Muscle Use Cardiovascular: Regular Rate, Rhythm, No Edema, No Murmur, Normal Peripheral Pulses Peripheral Pulses: 2+ Radial Pulses (R), 2+ Radial Pulses (L) Gastrointestinal: soft, distended (Mild compared to baseline according to pt), tenderness (RUQ) Extremity: Non Tender, No Calf Tenderness, No Pedal Edema, Other (Incision site no active bleeding, healing over well. Bandage was clear, dry, intact) Neurologic/Psychiatric: Alert, Oriented x3 Skin: Normal Color, Warm/Dry Lymphatic: No Adenopathy Results Lab Laboratory Tests 04/28/22 16:04: Vancomycin Level Trough 10.8 04/29/22 05:20: White Blood Count 9.5, Red Blood Count 3.53L, Hemoglobin 7.0L, Hematocrit 24L, Mean Corpuscular Volume 69L, Mean Corpuscular Hemoglobin 20L, Mean Corpuscular Hemoglobin Concent 29L, Red Cell Distribution Width 18.7H, Platelet Count 432H, Mean Platelet Volume 9.3, Immature Granulocyte % (Auto) 1, Neutrophils (%) (Auto) 73, Lymphocytes (%) (Auto) 7L, Monocytes (%) (Auto) 15H, Eosinophils (%) (Auto) 4, Basophils (%) (Auto) 1, Neutrophils # (Auto) 6.9, Lymphocytes # (Auto) 0.7L, Monocytes # (Auto) 1.4H, Eosinophils # (Auto) 0.3, Basophils # (Auto) 0.1, Immature Granulocyte # (Auto) 0.1, Sodium Level 130L, Potassium Level 4.4, Chloride Level 106, Carbon Dioxide Level 16L, Anion Gap 8, Blood Urea Nitrogen 17, Creatinine 1.06, Estimat Glomerular Filtration Rate 79, BUN/Creatinine Ratio 16, Glucose Level 110H, Calcium Level 8.3L, Corrected Calcium 9.4, Total Bilirubin 0.8, Aspartate Amino Transf (AST/SGOT) 25, Alanine Aminotransferase (ALT/SGPT) 18, Alkaline Phosphatase 93, Total Protein 6.8, Albumin 2.6L Microbiology 04/26/22 Blood Culture - Preliminary, Resulted No growth Assessment/Plan Assessment/Plan Assessment/Plan S/P Amputation of left fifth toe at the MIP joint- POD #1 Dry gangrene of Left 5th Toe Anemia PVD Cirrhosis of liver Hepatitis C History of Alcoholism, Esophageal Varices, GI Bleed Continue Abx Continue supportive care IS use Pain management Monitor incision site Clinical Quality Measures DVT/VTE Risk/Contraindication: Contraindications-Mechi: Other *list below* Other: severe pvd cellulitis legs RADHA PARKER D DO 04/29/22 1552: Subjective Subjective/Events-last exam Paitent with pain. Maybe little bit better now than earlier. Abdomen slightly distended more than baseline. Tolerating diet. Denies any nausea vomiting fever sweats chills shortness of breath or chest pain Objective Exam General Appearance: No Apparent Distress, Chronically ill HEENT: PERRL/EOMI Neck: Non Tender, Supple Respiratory: Chest Non Tender, No Accessory Muscle Use, No Respiratory Distress Cardiovascular: Regular Rate, Rhythm, No JVD Gastrointestinal: distended (Mild compared to baseline according to pt), tenderness (upper abdomen) Extremity: Non Tender, No Calf Tenderness, Other (Incision site no active bleeding, clean dry) Neurologic/Psychiatric: Alert, Oriented x3 Skin: Normal Color, Warm/Dry Lymphatic: No Adenopathy Assessment/Plan Assessment/Plan Assessment/Plan S/P Amputation of left fifth toe at the MIP joint- POD #1 Dry gangrene of Left 5th Toe Anemia PVD Cirrhosis of liver Hepatitis C History of Alcoholism, Esophageal Varices, GI Bleed Continue Abx Continue supportive care IS use Pain management Monitor incision site Supervisory-Addendum Brief Verification & Attestation Participated in pt care: history, MDM, physical Personally performed: exam, history, MDM, supervision of care Care discussed with: Medical Student Procedures: n/a Results interpretation: Verified all documentation Verification and Attestation of Medical Student E/M Service A medical student performed and documented this service in my presence. I reviewed and verified all information documented by the medical student and made modifications to such information, when appropriate. I personally performed the physical exam and medical decision making. Radha Parker, Apr 29, 2022,15:52 FLAKITA ALARCON Apr 29, 2022 08:29 RADHA PARKER DO Apr 29, 2022 15:52
[2022-04-29] MEDS ORDERED: NS IV 500 ML 500 ML IV SCH (08:30)
[2022-04-29] MEDS ORDERED: NS IV 500 ML 500 ML ONE (10:47)
[2022-04-29] MEDS: ASPIRIN E.C. 81 MG (ECOTRIN) TAB PO SCH (11:03)
[2022-04-29] MEDS: CLOPIDOGREL 75 MG (PLAVIX) TABLET PO SCH (11:03)
[2022-04-29] MEDS: VANCOMYCIN 1250 MG/NS 250 ML IVPB IV SCH ×2 (17:16)
--- NOTE | 2022-04-29 17:30 | Progress Note - Hospitalist ---
Subjective HPI/CC On Admission Date Seen by Provider: Apr 29, 2022 Time Seen by Provider: 10:50 Subjective/Events-last exam He is feeling ok. He feels bloated. He denies lightheadedness and dizziness. He denies chest pain and shortness of breath. Objective Exam Vital Signs Vital Signs Date Time Temp Pulse Resp B/P (MAP) Pulse Ox O2 Delivery O2 Flow Rate FiO2 04/29/22 15:15 36.8 104 18 98/53 (68) 92 Room Air 04/28/22 11:20 5.00 04/26/22 16:40 21 Capillary Refill : Less Than 3 SecondsLess Than 3 Seconds General Appearance: No Apparent Distress, Chronically ill, Thin Respiratory: Lungs Clear, No Respiratory Distress Cardiovascular: Regular Rate, Rhythm, No Murmur Gastrointestinal: Normal Bowel Sounds, Soft, Distended Extremity: Normal Inspection, No Pedal Edema Neurologic/Psychiatric: Alert, Normal Mood/Affect Skin: Normal Color, Warm/Dry Results/Procedures Lab Laboratory Tests 04/29/22 05:20 Patient resulted labs reviewed. Assessment/Plan Assessment and Plan Assess & Plan/Chief Complaint Critical limb ischemia Gangrene of left 5th toe Peripheral arterial disease Cardiology following s/p stent placement left SFA ASA and Plavix Surgery following s/p toe amputation Continue antibiotics MARITZA on CKD Improved Stop IV fluids Cirrhosis Hyponatremia Resume diuretics tomorrow morning Resume Lactulose History of variceal bleeding History of alcohol abuse Tobacco abuse Diagnosis/Problems Diagnosis/Problems (1) Critical limb ischemia of left lower extremity Status: Acute (2) PAD (peripheral artery disease) Status: Acute (3) Gangrene of toe of left foot Status: Acute (4) Status post amputation of lesser toe of left foot Status: Acute (5) Cirrhosis Status: Chronic Qualifiers: Hepatic cirrhosis type: alcoholic cirrhosis Ascites presence: with ascites Qualified Codes: K70.31 - Alcoholic cirrhosis of liver with ascites (6) Acute kidney injury superimposed on chronic kidney disease Status: Acute (7) Hyponatremia Status: Acute Clinical Quality Measures DVT/VTE Risk/Contraindication: Contraindications-Mechi: Other *list below* Other: severe pvd cellulitis legs FARRUKH STYLES MD Apr 29, 2022 17:30
[2022-04-29] MEDS: ENOXAPARIN INJECTION 30 MG/0.3 ML SYR SC SCH (19:23)
[2022-04-29] MEDS: LACTULOSE SYRUP 10GM/15ML (ENULOSE) 30ML UDC PO SCH (20:01)
[2022-04-30] VITALS (9 sets, daily range): BP systolic 100–120; BP diastolic 61–72
[2022-04-30] MEDS: PIPERACILLIN SODIUM/TAZOBACTAM 4.5 GM in NS (IVPB) 100 ML IV SCH ×3 (03:12→19:35)
[2022-04-30 05:45] LABS: BASOPHILS # (AUTO) 0.1 10^3/uL (0.0-0.1); BASOPHILS % (AUTO) 1 % (0-10); EOSINOPHILS # (AUTO) 0.2 10^3/uL (0.0-0.3); EOSINOPHILS % (AUTO) 2 % (0-10); HEMATOCRIT 29 % (40-54); HEMOGLOBIN 8.9 g/dL (13.3-17.7); LYMPHOCYTES # (AUTO) 0.7 10^3/uL (1.0-4.0); LYMPHOCYTES % (AUTO) 7 % (12-44); MEAN CORPUSCULAR HEMOGLOBIN 22 pg (25-34); MEAN CORPUSCULAR HGB CONC 31 g/dL (32-36); MEAN CORPUSCULAR VOLUME 72 fL (80-99); MEAN PLATELET VOLUME 9.8 fL (9.0-12.2); MONOCYTES # (AUTO) 1.5 10^3/uL (0.0-1.0); MONOCYTES % (AUTO) 15 % (0-12); NEUTROPHILS # (AUTO) 7.7 10^3/uL (1.8-7.8); NEUTROPHILS % (AUTO) 74 % (42-75); PLATELET COUNT 502 10^3/uL (130-400); WHITE BLOOD COUNT 10.3 10^3/uL (4.3-11.0)
[2022-04-30 06:11] LABS: ALBUMIN 2.6 GM/DL (3.2-4.5); BILIRUBIN,TOTAL 1.3 MG/DL (0.1-1.0); CALCIUM 8.3 MG/DL (8.5-10.1); CREATININE SERUM 0.88 MG/DL (0.60-1.30); POTASSIUM 4.2 MMOL/L (3.6-5.0); TOTAL PROTEIN 6.7 GM/DL (6.4-8.2)
[2022-04-30] MEDS: RT-ALBUTEROL/IPRATROPIUM 3 ML (DUONEB) VIAL INH SCH ×3 (07:25→20:20)
[2022-04-30] MEDS: DOCUSATE SODIUM 100 MG (COLACE) CAP PO SCH ×2 (08:32→19:44)
[2022-04-30] MEDS: PANTOPRAZOLE 40 MG (PROTONIX) TAB PO SCH (08:32)
[2022-04-30] MEDS: CLOPIDOGREL 75 MG (PLAVIX) TABLET PO SCH (08:32)
[2022-04-30] MEDS: LACTULOSE SYRUP 10GM/15ML (ENULOSE) 30ML UDC PO SCH ×2 (08:32→19:45)
[2022-04-30] MEDS: SENNOSIDES 8.6 MG (SENOKOT) TAB PO SCH ×2 (08:32→19:44)
[2022-04-30] MEDS: FUROSEMIDE 40 MG (LASIX) TAB PO SCH (08:32)
[2022-04-30] MEDS: SPIRONOLACTONE 100 MG (ALDACTONE) TABLET PO SCH (08:32)
[2022-04-30] MEDS: ASPIRIN E.C. 81 MG (ECOTRIN) TAB PO SCH (08:32)
--- NOTE | 2022-04-30 08:33 | Progress Note - Surgery ---
FLAKITA ALARCON 04/30/22 0833: Subjective Date Seen by a Provider: Apr 30, 2022 Time Seen by a Provider: 08:24 Subjective/Events-last exam Patient is laying in bed uncomfortably Patients pain this morning is a 7/10 in his post op incision, unchanged from yesterday Still complaining of hip pain from laying in bed Biggest complaint this morning is his abdomen distention secondary to his cirrhosis, because of which he has no appetite Was able to ambulate to use bathroom Denies any N/V/D, body aches, chills, or fever Using IS Labs reviewed Review of Systems General: No Chills HEENT: No Head Aches, No Eye Pain Pulmonary: Dyspnea; No Cough Cardiovascular: No: Chest Pain, Palpitations Gastrointestinal: Abdominal Pain; No: Melena Genitourinary: No Dysuria, No Frequency Musculoskeletal: No: neck pain, shoulder pain Neurological: Weakness; No: Numbness Objective Exam Vital Signs Date Time Temp Pulse Resp B/P (MAP) Pulse Ox O2 Delivery O2 Flow Rate FiO2 04/30/22 07:49 36.8 103 96 04/30/22 07:37 36.8 103 18 117/70 (86) 93 Room Air 04/30/22 07:33 97 Room Air 04/30/22 03:46 37.2 83 16 119/72 (88) 04/29/22 23:42 36.7 92 16 109/70 (83) 93 Room Air 04/29/22 20:40 Room Air 04/29/22 19:20 94 Room Air 04/29/22 19:09 36.7 98 18 102/60 (74) 91 Room Air 04/29/22 16:30 37.0 98 20 124/65 (84) 93 Room Air 04/29/22 15:15 36.8 104 18 98/53 (68) 92 Room Air 04/29/22 14:26 93 Room Air 04/29/22 13:56 37.4 102 20 110/64 95 Room Air 04/29/22 11:10 37.7 100 20 122/72 94 Room Air 04/29/22 11:10 37.7 100 20 122/72 (89) 94 Room Air 04/29/22 10:54 37.4 98 20 125/71 93 Room Air 04/29/22 10:12 94 Room Air 04/29/22 09:00 Room Air I & O 04/30/22 07:00 Intake Total 1100 ml Output Total 625 ml Balance 475 ml Capillary Refill : Less Than 3 SecondsLess Than 3 Seconds General Appearance: No Apparent Distress, Chronically ill, Thin HEENT: PERRL/EOMI; No Scleral Icterus (R) Neck: Non Tender, Supple Respiratory: Chest Non Tender, Lungs Clear, No Respiratory Distress Cardiovascular: Regular Rate, Rhythm, No Murmur Peripheral Pulses: 2+ Radial Pulses (R), 2+ Radial Pulses (L) Gastrointestinal: distended (Moderate, worsening from yesterday), tenderness (upper abdomen) Extremity: Normal Inspection, No Pedal Edema, Other (Incision site of left foot from surgery is healing well) Neurologic/Psychiatric: Alert, Normal Mood/Affect Skin: Normal Color, Warm/Dry Lymphatic: No Adenopathy Results Lab Laboratory Tests 04/30/22 05:25: White Blood Count 10.3, Red Blood Count 4.01L, Hemoglobin 8.9#L, Hematocrit 29L, Mean Corpuscular Volume 72L, Mean Corpuscular Hemoglobin 22L, Mean Corpuscular H emoglobin Concent 31L, Red Cell Distribution Width 19.9H, Platelet Count 502H, Mean Platelet Volume 9.8, Immature Granulocyte % (Auto) 1, Neutrophils (%) (Auto) 74, Lymphocytes (%) (Auto) 7L, Monocytes (%) (Auto) 15H, Eosinophils (%) (Auto) 2, Basophils (%) (Auto) 1, Neutrophils # (Auto) 7.7, Lymphocytes # (Auto) 0.7L, Monocytes # (Auto) 1.5H, Eosinophils # (Auto) 0.2, Basophils # (Auto) 0.1, Immature Granulocyte # (Auto) 0.1, Sodium Level 130L, Potassium Level 4.2, Chloride Level 104, Carbon Dioxide Level 16L, Anion Gap 10, Blood Urea Nitrogen 15, Creatinine 0.88, Estimat Glomerular Filtration Rate 97, BUN/Creatinine Ratio 17, Glucose Level 112H, Calcium Level 8.3L, Corrected Calcium 9.4, Total Bilirubin 1.3H, Aspartate Amino Transf (AST/SGOT) 25, Alanine Aminotransferase (ALT/SGPT) 15, Alkaline Phosphatase 104, Total Protein 6.7, Albumin 2.6L Microbiology 04/26/22 Blood Culture - Preliminary, Resulted No growth Assessment/Plan Assessment/Plan Assessment/Plan S/P Amputation of left fifth toe at the MIP joint- POD #2 Dry gangrene of Left 5th Toe Anemia- 8.9 today from 7.0 yesterday PVD Cirrhosis of liver Hepatitis C History of Alcoholism, Esophageal Varices, GI Bleed Continue Abx Continue breathing treatments- Fluids DC Track and trend hemoglobin Transfuse as needed-Recieved one unit yesterday (04-29-2022) IS use Pain management Monitor incision site Clinical Quality Measures DVT/VTE Risk/Contraindication: Contraindications-Mechi: Other *list below* Other: severe pvd cellulitis legs RADHA PARKER D DO 04/30/22 1211: Subjective Subjective/Events-last exam Patient with some abdominal pain due to swelling. No appetite. Foot pain controlled. No n/v. Abdominal x ray: 1. Prominent gas distention gastrointestinal track. Favors probable prominent ileus. Followup imaging if clinically warranted. Objective Exam General Appearance: No Apparent Distress, Chronically ill, Thin HEENT: PERRL/EOMI; No Scleral Icterus (L), No Scleral Icterus (R) Neck: Non Tender, Supple Respiratory: Chest Non Tender, No Accessory Muscle Use, No Respiratory Distress Cardiovascular: Regular Rate, Rhythm, No JVD Gastrointestinal: distended (Moderate, worsening from yesterday), tenderness (upper abdomen) Extremity: Normal Inspection, Other (Incision site of left foot from surgery is healing well) Neurologic/Psychiatric: Alert, Oriented x3, Normal Mood/Affect Skin: Normal Color, Warm/Dry Lymphatic: No Adenopathy Assessment/Plan Assessment/Plan Assessment/Plan S/P Amputation of left fifth toe at the MIP joint- POD #2 Dry gangrene of Left 5th Toe Anemia- 8.9 today from 7.0 yesterday PVD Cirrhosis of liver Hepatitis C Abdominal distetion, ileus and likely ascites History of Alcoholism, Esophageal Varices, GI Bleed Continue Abx diuretics restarted u/s in am may need paracentesis Continue breathing treatments- Fluids DC Track and trend hemoglobin Transfuse as needed-Recieved one unit yesterday (04-29-2022) IS use Pain management Monitor incision site Supervisory-Addendum Brief Verification & Attestation Participated in pt care: history, MDM, physical Personally performed: exam, history, MDM, supervision of care Care discussed with: Medical Student Procedures: n/a Results interpretation: Verified all documentation Verification and Attestation of Medical Student E/M Service A medical student performed and documented this service in my presence. I reviewed and verified all information documented by the medical student and made modifications to such information, when appropriate. I personally performed the physical exam and medical decision making. Radha Parker, Apr 30, 2022,12:11 FLAKITA ALARCON Apr 30, 2022 08:33 RADHA PARKER DO Apr 30, 2022 12:11
--- NOTE | 2022-04-30 09:27 | Cardiology Progress Note ---
Subjective Date Seen by Provider: Apr 30, 2022 Time Seen by Provider: 09:26 Subjective/Events-last exam Patient is laying down in bed, complaining of abdominal pain, nausea and abdominal distention Review of Systems General: No Chills, No Night Sweats, No Fatigue, No Malaise, No Appetite, No Other HEENT: No Head Aches, No Visual Changes, No Eye Pain, No Ear Pain, No Dysphasia, No Sinus Congestion, No Post Nasal Drip, No Sore Throat, No Other Pulmonary: No Dyspnea, No Cough, No Pleuritic Chest Pain, No Other Cardiovascular: No: Chest Pain, Palpitations, Orthopnea, Paroxysmal Noc. Dyspnea, Edema, Lt Headedness, Other Objective-Cardiology Exam Last Set of Vital Signs Vital Signs 04/26/22 04/30/22 04/30/22 16:40 07:37 07:49 Temp 36.8 Pulse 103 Resp 18 B/P (MAP) 117/70 (86) Pulse Ox 96 O2 Delivery Room Air FiO2 21 I&O Intake and Output 04/30/22 00:00 Intake Total 1300 ml Output Total 925 ml Balance 375 ml Intake Oral 950 ml IV Total 200 ml Other 150 ml Output Urine Total 925 ml General: Alert, Oriented X3, Cooperative HEENT: Atraumatic, PERRLA Neck: Supple, No JVD, No Thyromegaly Lungs: Clear to Auscultation, Normal Air Movement Heart: Regular Rate, Normal S1, Normal S2, Other (Systolic murmur at the left sternal border) Abdomen: Soft, No Masses, Other (Distended abdomen, diminished bowel sounds) Extremities: No Edema, Normal Pulses, No Tenderness/Swelling, Other (Status post amputation of his toes) Skin: No Rashes, No Breakdown, No Significant Lesion Neuro: Normal Gait, Normal Speech, Strength at 5/5 X4 Ext, Normal Tone, Sensat ion Intact Psych/Mental Status: Mental Status NL, Mood NL Results Lab Laboratory Tests 04/30/22 05:25 A/P-Cardiology Admission Diagnosis PVD Left 5th toe gangrene Hep C Cirrhosis Assessment/Plan Left 5th toe cellulitis with gangrene, started on antibiotic. Lower extremity US done showing moderate atherosclerosis in the left lower extremity. Peripheral angiogram done on April 26, 2022 with total occlusion of the left SFA, successful balloon angioplasty and deployment of Supera stent 5.5 x 60 mm with excellent results. Significant improvement in the blood flow down to the foot. Patient has palpable dorsalis pedis pulse on the left. Good perfusion was noted. Status post amputation of the fifth toe done on April 28, 2022, recovering well. Abdominal pain, abdominal distention, possible ileus. Place patient n.p.o. Evaluate KUB Anemia, worsening H&H, probably secondary to IV fluid and underlying chronic anemia. Does not appear to have active GI loss at this time. Will transfuse 1 unit packed RBCs and monitor. Continue on aspirin and Plavix Peripheral arterial disease, angiogram done on April 27, 2020. Status post stenting of the left SFA with Supera 5.5 x 16 mm with excellent results. Total occlusion of the right SFA that would need intervention at a later point. Restart aspirin and Plavix and monitor Hypotension, cannot tolerate ALESSANDRA inhibitor at this time due to borderline hypotension. CKD, continue IV fluids, continue to monitor renal function Cirrhosis d/t Hep C and hx of alcoholism Hx esophageal varices Hx of GI bleed. Tobaccoism, educated on smoking cessation History of illicit drug use. RADHA HERNANDEZ MD Apr 30, 2022 09:27
--- NOTE | 2022-04-30 09:54 | Diagnostic Imaging Report ---
INDICATION: Abdominal pain. TECHNIQUE: Supine and upright radiograph of the abdomen 9:40 AM CORRELATION STUDY: None FINDINGS: Visualized lung base mild prominent interstitial markings. There are gas-filled loops of bowel present. However, some gas and stool in the colon likely to level of rectum. No differential air-fluid levels. IMPRESSION: 1. Prominent gas distention gastrointestinal track. Favors probable prominent ileus. Followup imaging if clinically warranted. Dictated by: Dictated on workstation # [id number]
--- NOTE | 2022-04-30 10:08 | Progress Note - Hospitalist ---
Subjective HPI/CC On Admission Date Seen by Provider: Apr 30, 2022 Time Seen by Provider: 09:45 Subjective/Events-last exam He is having abdominal distension. He had a bowel movement last night. He denies nausea and vomiting. He is having some trouble catching his breath. He denies chest pain. He denies fevers. Objective Exam Vital Signs Vital Signs Date Time Temp Pulse Resp B/P (MAP) Pulse Ox O2 Delivery O2 Flow Rate FiO2 04/30/22 09:31 Room Air 04/30/22 07:49 36.8 103 96 04/30/22 07:37 18 117/70 (86) 04/28/22 11:20 5.00 04/26/22 16:40 21 Capillary Refill : Less Than 3 SecondsLess Than 3 Seconds General Appearance: No Apparent Distress, WD/WN Respiratory: Lungs Clear, No Respiratory Distress Cardiovascular: No Murmur, Tachycardia Gastrointestinal: Normal Bowel Sounds, Soft, Distended Extremity: Normal Inspection, No Pedal Edema Neurologic/Psychiatric: Alert, Normal Mood/Affect Skin: Normal Color, Warm/Dry Results/Procedures Lab Laboratory Tests 04/30/22 05:25 Patient resulted labs reviewed. Assessment/Plan Assessment and Plan Assess & Plan/Chief Complaint Critical limb ischemia Gangrene of left 5th toe Peripheral arterial disease Cardiology following s/p stent placement left SFA ASA and Plavix Surgery following s/p toe amputation Continue antibiotics Decompensated hepatic cirrhosis Ascites Hyponatremia Resume diuretics Continue Lactulose Consider paracentesis Case discussed with Dr. Parkre, surgery History of variceal bleeding History of alcohol abuse Tobacco abuse MARITZA on CKD, resolved Diagnosis/Problems Diagnosis/Problems (1) Critical limb ischemia of left lower extremity Status: Acute (2) PAD (peripheral artery disease) Status: Acute (3) Gangrene of toe of left foot Status: Acute (4) Status post amputation of lesser toe of left foot Status: Acute (5) Cirrhosis Status: Chronic Qualifiers: Hepatic cirrhosis type: alcoholic cirrhosis Ascites presence: with ascites Qualified Codes: K70.31 - Alcoholic cirrhosis of liver with ascites (6) Acute kidney injury superimposed on chronic kidney disease Status: Acute (7) Hyponatremia Status: Acute Clinical Quality Measures DVT/VTE Risk/Contraindication: Contraindications-Mechi: Other *list below* Other: severe pvd cellulitis legs FARRUKH STYLES MD Apr 30, 2022 10:08
[2022-04-30] MEDS ORDERED: TROUGH ORDER-PHARMACY XX ONE (16:00)
[2022-04-30] MEDS: VANCOMYCIN 1250 MG/NS 250 ML IVPB IV SCH ×2 (17:20)
[2022-04-30] MEDS: ENOXAPARIN INJECTION 30 MG/0.3 ML SYR SC SCH (19:36)
[2022-05-01 04:15] VITALS: BP 105/66
[2022-05-01] MEDS: PIPERACILLIN SODIUM/TAZOBACTAM 4.5 GM in NS (IVPB) 100 ML IV SCH ×2 (04:15→11:30)
[2022-05-01 05:03] LABS: BASOPHILS # (AUTO) 0.2 10^3/uL (0.0-0.1); BASOPHILS % (AUTO) 2 % (0-10); EOSINOPHILS # (AUTO) 0.1 10^3/uL (0.0-0.3); EOSINOPHILS % (AUTO) 1 % (0-10); HEMATOCRIT 29 % (40-54); HEMOGLOBIN 8.8 g/dL (13.3-17.7); LYMPHOCYTES # (AUTO) 0.7 10^3/uL (1.0-4.0); LYMPHOCYTES % (AUTO) 7 % (12-44); MEAN CORPUSCULAR HEMOGLOBIN 22 pg (25-34); MEAN CORPUSCULAR HGB CONC 30 g/dL (32-36); MEAN CORPUSCULAR VOLUME 72 fL (80-99); MONOCYTES # (AUTO) 1.5 10^3/uL (0.0-1.0); MONOCYTES % (AUTO) 15 % (0-12); NEUTROPHILS # (AUTO) 7.3 10^3/uL (1.8-7.8); NEUTROPHILS % (AUTO) 74 % (42-75); PLATELET COUNT 570 10^3/uL (130-400)
[2022-05-01 05:22] LABS: ALBUMIN 2.7 GM/DL (3.2-4.5); BILIRUBIN,TOTAL 1.1 MG/DL (0.1-1.0); CALCIUM 8.4 MG/DL (8.5-10.1); CREATININE SERUM 0.95 MG/DL (0.60-1.30); POTASSIUM 4.3 MMOL/L (3.6-5.0); TOTAL PROTEIN 7.1 GM/DL (6.4-8.2)
[2022-05-01] MEDS: RT-ALBUTEROL/IPRATROPIUM 3 ML (DUONEB) VIAL INH SCH ×2 (07:14→14:48)
[2022-05-01 07:51] VITALS: BP 123/54
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
--- NOTE | 2022-05-01 08:37 | Diagnostic Imaging Report ---
PROCEDURE: US Abdomen, limited. TECHNIQUE: Multiple realtime grayscale images were obtained over the abdomen in various projections. INDICATION: Abdominal distention, assessment for ascites. CORRELATION STUDY: None FINDINGS: Findings are positive for ascites in all 4 quadrants of the abdomen. IMPRESSION: 1. Moderate ascites. Dictated by: Dictated on workstation # [id number]
--- NOTE | 2022-05-01 08:50 | Cardiology Progress Note ---
Subjective Date Seen by Provider: May 01, 2022 Time Seen by Provider: 08:45 Subjective/Events-last exam Patient is in bed, complaining of abdominal discomfort and distention. Denies any chest pain. Review of Systems General: No Chills, No Night Sweats; Fatigue, Malaise; No Appetite, No Other HEENT: No Head Aches, No Visual Changes, No Eye Pain, No Ear Pain, No Dysph jazmín, No Sinus Congestion, No Post Nasal Drip, No Sore Throat, No Other Pulmonary: No Dyspnea, No Cough, No Pleuritic Chest Pain, No Other Cardiovascular: No: Chest Pain, Palpitations, Orthopnea, Paroxysmal Noc. Dyspnea, Edema, Lt Headedness, Other Objective-Cardiology Exam Last Set of Vital Signs Vital Signs 04/26/22 05/01/22 16:40 07:51 Temp 36.8 Pulse 97 Resp 18 B/P (MAP) 123/54 (77) Pulse Ox 92 O2 Delivery Room Air FiO2 21 I&O Intake and Output 05/01/22 00:00 Intake Total 1262 ml Output Total 1000 ml Balance 262 ml Intake Oral 1162 ml IV Total 100 ml Output Urine Total 1000 ml # Voids 3 General: Alert, Oriented X3, Cooperative HEENT: Atraumatic, PERRLA Neck: Supple, No JVD, No Thyromegaly Lungs: Clear to Auscultation, Normal Air Movement Heart: Regular Rate, Normal S1, Normal S2, Other (Systolic murmur at the left sternal border) Abdomen: Soft, No Masses, Other (Distended abdomen, diminished bowel sounds) Extremities: No Edema, Normal Pulses, No Tenderness/Swelling, Other (Status post amputation of his toes) Skin: No Rashes, No Breakdown, No Significant Lesion Neuro: Normal Gait, Normal Speech, Strength at 5/5 X4 Ext, Normal Tone, Sensation Intact Psych/Mental Status: Mental Status NL, Mood NL Results Lab Laboratory Tests 05/01/22 04:23 A/P-Cardiology Admission Diagnosis PVD Left 5th toe gangrene Hep C Cirrhosis Assessment/Plan Left 5th toe cellulitis with gangrene, started on antibiotic. Lower extremity US done showing moderate atherosclerosis in the left lower extremity. Peripheral angiogram done on April 26, 2022 with total occlusion of the left SFA, successful balloon angioplasty and deployment of Supera stent 5.5 x 60 mm with excellent results. Significant improvement in the blood flow down to the foot. Patient has palpable dorsalis pedis pulse on the left. Good perfusion was noted. Status post amputation of the fifth toe done on April 28, 2022, recovering well. Abdominal pain, abdominal distention, xray suggestive of ileus Abdominal US showing Ascites. Dr. Parker managing. Anemia, continue to monitor H&H, probably secondary to IV fluid and underlying chronic anemia. Does not appear to have active GI loss at this time. Continue on aspirin and Plavix Peripheral arterial disease, angiogram done on April 27, 2020. Status post stenting of the left SFA with Supera 5.5 x 16 mm with excellent results. Total occlusion of the right SFA that would need intervention at a later point. Maintained on ASA and Plavix. Hypotension, cannot tolerate ALESSANDRA inhibitor at this time due to borderline hypotension. CKD, continue IV fluids, continue to monitor renal function Cirrhosis d/t Hep C and hx of alcoholism Hx esophageal varices Hx of GI bleed. Tobaccoism, educated on smoking cessation History of illicit drug use. Supervisory-Addendum Brief Supervisory Addendum Participated in pt care: history, MDM, physical Personally performed: exam, history, MDM Care discussed with: BEBETO Results interpretation: Verified all documentation Notes: Patient was seen and evaluated with Makenzie, examination performed, management plan was discussed, agree with the current scribed note, I made few changes to the note using Italic font Patient was seen at bedside, laying down comfortably, complaining of abdominal distention and discomfort Denied any chest pain, recovering from the toe amputation Ascites was identified on ultrasound, ileus was identified on x-ray Currently managed by Dr. Parker, cardiac status is stable. Continue to monitor MAKENZIE NGO May 01, 2022 08:50 RADHA HERNANDEZ MD May 01, 2022 09:19
[2022-05-01] MEDS: LACTULOSE SYRUP 10GM/15ML (ENULOSE) 30ML UDC PO SCH (09:35)
[2022-05-01] MEDS: SPIRONOLACTONE 100 MG (ALDACTONE) TABLET PO SCH (09:35)
[2022-05-01] MEDS: ASPIRIN E.C. 81 MG (ECOTRIN) TAB PO SCH (09:35)
[2022-05-01] MEDS: PANTOPRAZOLE 40 MG (PROTONIX) TAB PO SCH (09:35)
[2022-05-01] MEDS: FUROSEMIDE 40 MG (LASIX) TAB PO SCH (09:35)
[2022-05-01] MEDS: SENNOSIDES 8.6 MG (SENOKOT) TAB PO SCH (09:35)
[2022-05-01] MEDS: DOCUSATE SODIUM 100 MG (COLACE) CAP PO SCH (09:35)
[2022-05-01] MEDS: CLOPIDOGREL 75 MG (PLAVIX) TABLET PO SCH (09:35)
[2022-05-01 11:15] VITALS: BP 119/75
[2022-05-01] MEDS ORDERED: LIDOCAINE 1% INJ 20 ML VIAL ONE (12:37)
--- NOTE | 2022-05-01 12:51 | Progress Note-Post Operative ---
Post-Operative Progess Note Surgeon (s)/Cherry Picker Operator (s) Surgeon DUSTY HERRERA DO Cherry Picker Operator: none Pre-Operative Diagnosis Ascites Post-Operative Diagnosis same Procedure & Operative Findings Date of Procedure 05/01/22 Procedure Performed/Findings Paracentesis The patient was in his 4th floor bed. US had already come and confirmed ascites in all 4 quadrants. I used the portable US to find the largest pocket of fluid the most accessible was in the LLQ. The abdomen was then prepped and draped and timeout was performed. Local anesthetic was infiltrated and #11 blade scalpel was used to make a small skin incision. [id number] needle and catheter were then advanced until a yellowish straw-colored fluid was withdrawn. The catheter was advanced and the needle was removed. Plan was to remove as much fluid as we can. Once done draining, the catheter will be removed and sterile bandage applied. The nurse will call and tell me how much fluid they were able to remove. Pt will get albumin per protocol; if more than 5,000cc's. The patient tolerated procedure well without any complications. There was very scant amount of blood from the stab incision and nothing in the ascitic fluid. Anesthesia Type Local lidocaine Estimated Blood Loss Estimated blood loss (mL): scant Specimens/Packing Specimens Removed ascitic fluid DUSTY HERRERA DO May 01, 2022 12:51
--- NOTE | 2022-05-01 14:50 | Discharge Summary ---
Diagnosis/Chief Complaint Date of Admission Apr 26, 2022 at 15:55 Date of Discharge 05/01/22 Discharge Summary-Simple/Stand Consultations Dr Morrsion: General Surgery Discharge Physical Examination Allergies: Coded Allergies: No Known Drug Allergies (Unverified , 02/06/10) Vitals & I&Os Vital Sign - Last 12Hours Date Time Temp Pulse Resp B/P (MAP) Pulse Ox O2 Delivery O2 Flow Rate FiO2 05/01/22 11:15 36.9 103 18 119/75 (90) 92 Room Air 04/28/22 11:20 5.00 04/26/22 16:40 21 Intake and Output 05/01/22 00:00 Intake Total 1062 ml Output Total 800 ml Balance 262 ml General Appearance: Alert, Oriented X3, Cooperative, No Acute Distress Respiratory: Clear to Auscultation, Normal Air Movement Cardiovascular: Regular Rate, No Murmurs Abdominal: Soft (mild ttp, distention improved after paracentesis), Other Extremities: No Edema, Other (Left Foot: Erythema that is improving from marking) Hospital Course See final discharge diagnosis. Radiology Reviewed Discharge Condition at discharge Stable Instructions to patient/family Please see electronic discharge instructions given to patient. Discharge Medications Reviewed and agree with Discharge Medication list on patient's Discharge Instru ction sheet Clinical Quality Measures DVT/VTE Risk/Contraindication: Contraindications-Mechi: Other *list below* Other: severe pvd cellulitis legs CAN WHITE MD May 01, 2022 14:50
[2022-05-01] MEDS ORDERED: CLOP75TA28 PO (14:52)
[2022-05-01] MEDS ORDERED: ASPI-1238 PO (14:52)
[2022-05-01] MEDS ORDERED: ATOR80TA76 PO (14:52)
--- NOTE | 2022-05-01 14:53 | Discharge Summary ---
Discharge [facility] Reconcile Patient Problems Problems Reviewed?: Yes Discharge Medications New, Converted or Re-Newed RX: Transmitted to Pharmacy New Medications: Aspirin (Aspirin EC) 81 Mg Tablet.dr 81 MG PO DAILY, #30 TAB Atorvastatin Calcium (Atorvastatin Calcium) 80 Mg Tablet 80 MG PO HS, #30 TAB Clopidogrel Bisulfate (Clopidogrel) 75 Mg Tablet 75 MG PO DAILY, #30 TAB Continued Medications: Furosemide (Furosemide) 40 Mg Tablet 40 MG PO DAILY, TAB LAST FILLED 12-01-2021 #90/90 DAY SUPPLY Lactulose (Lactulose) 10 Gram/15 Ml Solution 15 ML PO BID, EA HOLD FOR LOOSE STOOLS Pantoprazole Sodium (Pantoprazole Sodium) 40 Mg Tablet.dr 40 MG PO DAILY, TAB Spironolactone (Spironolactone) 100 Mg Tablet 100 MG PO DAILY, TAB Patient Instructions Goal/Follow Up Appt: 1 week with PCP Activity & Diet Discharge Diet: Cardiac Diet Activity as Tolerated: Yes CAN WHITE MD May 01, 2022 14:53
[2022-05-01 16:09] VITALS: BP 119/75
== END 2022-05-01 16:06 | disposition home or self-care (01) | DRG 253 ==
LOC: EDUNIT# 11:21 → ER 11:23 → CATH 14:28 → ICU 15:55 → 4TH 04-27 15:25
PROVIDERS: ADMIT Internal Medicine; ATTEND Family Medicine
PROC: 047L34Z Dilation of Left Femoral Artery with Drug-eluting Intraluminal Device, Percutaneous Approach (ICD-10-PCS; principal; 2022-04-26)
PROC: B41F1ZZ Fluoroscopy of Right Lower Extremity Arteries using Low Osmolar Contrast (ICD-10-PCS; 2022-04-26)
PROC: B41G1ZZ Fluoroscopy of Left Lower Extremity Arteries using Low Osmolar Contrast (ICD-10-PCS; 2022-04-26)
PROC: 0Y6Y0Z0 Detachment at Left 5th Toe, Complete, Open Approach (ICD-10-PCS; 2022-04-28)
PROC: 0W9G3ZZ Drainage of Peritoneal Cavity, Percutaneous Approach (ICD-10-PCS; 2022-05-01)
DX: I70.262 Atherosclerosis of native arteries of extremities with gangrene, left leg (principal); E87.1 Hypo-osmolality and hyponatremia; N17.9 Acute kidney failure, unspecified; R18.8 Other ascites; K56.7 Ileus, unspecified; I70.221 Atherosclerosis of native arteries of extremities with rest pain, right leg; L03.032 Cellulitis of left toe; B18.2 Chronic viral hepatitis C; K72.10 Chronic hepatic failure without coma; F17.210 Nicotine dependence, cigarettes, uncomplicated; N18.9 Chronic kidney disease, unspecified; F10.20 Alcohol dependence, uncomplicated; D64.9 Anemia, unspecified; E78.00 Pure hypercholesterolemia, unspecified; I12.9 Hypertensive chronic kidney disease with stage 1 through stage 4 chronic kidney disease, or unspecified chronic kidney disease; K74.60 Unspecified cirrhosis of liver; I95.9 Hypotension, unspecified; E87.6 Hypokalemia
CPT/HCPCS: 36248; 36415; 37226; 73630; 74019; 75716; 76705; 80053; 80061; 80202; 80320; 82150; 83605; 85007; 85025; 85027; 85610; 85652; 85730; 86141; 86850; 86900; 86901; 86920; 87040; 93005; 93306; 93926; 94640; 94664; 94760

== ENCOUNTER 2022-05-12 09:42 | Outpatient (CLI) | payer OTHER ==
[~2022-05-12] VITALS: Ht 167.7 cm; Wt 45.8 kg
[~2022-05-12 09:42] MED LIST changes: +ASPI-1238 PO; +ATOR80TA76 PO; +CLOP75TA28 PO; +FURO40TA4 PO; +LACT10SO3 PO
[2022-05-12 10:08] VITALS: BP 129/88
--- NOTE | 2022-05-12 11:14 | Progress Note-Pre Operative ---
Pre-Operative Progress Note Date of Available H&P: May 09, 2022 Date H&P Reviewed: May 12, 2022 Time H&P Reviewed: 10:14 History & Physical: H&P Reviewed, Patient Examed, No changes noted Pre-Operative Diagnosis: Ascites DUSTY HERRERA DO May 12, 2022 11:14
--- NOTE | 2022-05-12 11:26 | Progress Note-Post Operative ---
Post-Operative Progess Note Surgeon (s)/Grouter Helper (s) Surgeon DUSTY HERRERA DO Grouter Helper: none Pre-Operative Diagnosis Ascites Post-Operative Diagnosis same Procedure & Operative Findings Date of Procedure 05/12/22 Procedure Performed/Findings Paracentesis The patient was in the PACU in his bed. US came and found the largest pocket of fluid. The abdomen was then prepped and draped and timeout was performed. Local anesthetic was infiltrated and #11 blade scalpel was used to make a small skin incision. [id number] needle and catheter were then advanced until a yellow straw-colored fluid was withdrawn. The catheter was advanced and the needle was removed. Plan was to remove as much fluid as we can. Once done draining, the catheter will be removed and sterile bandage applied. The nurse called and they were able to get 4100ml of fluid. Pt will not neeed to get albumin per protocol. The patient tolerated procedure well without any complications. Anesthesia Type local lidocaine Estimated Blood Loss Estimated blood loss (mL): scant Specimens/Packing Specimens Removed ascitic fluid DUSTY HERRERA DO May 12, 2022 11:26
== END 2022-05-12 11:47 | disposition home or self-care (01) ==
LOC: RAD 09:42
PROVIDERS: ATTEND Surgery
DX: R18.8 Other ascites (principal)
CPT/HCPCS: 49083

== ENCOUNTER 2022-05-26 11:08 | Day surgery (SDC) | payer SELFPAY ==
[~2022-05-26] VITALS: Ht 167.7 cm; Wt 45.8 kg
[2022-05-26] VITALS (7 sets, daily range): BP systolic 118–145; BP diastolic 70–94
[2022-05-26] MEDS ORDERED: LIDOCAINE/EPI 1%-1:100,000 (XYLOCAINE) 30ML ONE (12:07)
[2022-05-26] MEDS ORDERED: proPOfol 200 MG/20 ML (DIPRIVAN) VIAL IV ONE (13:26)
[2022-05-26] MEDS ORDERED: MIDAZOLAM 2 MG/2 ML (VERSED) VIAL ONE (13:26)
[2022-05-26] MEDS ORDERED: fentaNYL INJ 100 MCG/2 ML AMP ONE (13:26)
[2022-05-26] MEDS ORDERED: ceFAZolin INJECTION 1,000 MG VIAL IV ONE ×2 (14:00→16:00)
[2022-05-26] MEDS ORDERED: ceFAZolin INJECTION 1,000 MG ONE (14:06)
--- NOTE | 2022-05-26 14:11 | Progress Note-Pre Operative ---
Pre-Operative Progress Note Date of Available H&P: May 16, 2022 Date H&P Reviewed: May 26, 2022 Time H&P Reviewed: 14:06 History & Physical: H&P Reviewed, Patient Examed, No changes noted Pre-Operative Diagnosis: ascites DUSTY HERRERA DO May 26, 2022 14:11
--- NOTE | 2022-05-26 14:41 | Progress Note-Post Operative ---
Post-Operative Progess Note Surgeon (s)/Blade Filer (s) Surgeon DUSTY HERRERA DO Blade Filer: none Pre-Operative Diagnosis ascites Post-Operative Diagnosis same Procedure & Operative Findings Date of Procedure 05/26/22 Procedure Performed/Findings PROCEDURE: PleurX catheter placement. INDICATION FOR PROCEDURE: The patient is a 61 male with end stage liver failure who needs a permanent catheter placed to drain to give his less pain. FINDINGS: The patient had a PleurX catheter placed left lower quadrant without any difficulty. PROCEDURE NOTE: After informed consent was obtained, the patient was brought to the operating room, placed on the operating table in supine position. He was sterilely prepped and draped in normal fashion. We then used a sterile cover on the ultrasound probe, looking left lower quadrant, could see where it had gone in before, there was a lot of fluid. So, at this point, we then infiltrated at this spot and then about 5 cm above it local lidocaine and then along the tract between the two, made a stab incision with #11 blade and then carefully tunneled from the upper incision into the lower incision, then using a needle and ultrasound, watched as the needle went into the abdomen, good flash of ascitic fluid, removed the needle. There was a catheter, placed guidewire down the catheter and then removed the catheter. Then over the guidewire using the Seldinger technique, placed the dilator and then pulled this out and then placed the second dilator with a sheath, then pulled the catheter through, removed the wire and the catheter sheath and the dilator and then placed the PleurX catheter through the sheath, went all the way in, then removed this sheath, then closed the lower incision with 2-0 Silk horizontal mattress suture, sutured the catheter in place above, suturing to the skin and into the catheter and then tying the catheter down with a 2-0 silk suture. At this point, we then hooked up to suction and got about 3 Liters out in the OR and then he was transferred to recovery to get the rest out. He tolerated the procedure. I could see the catheter in with the ultrasound. Sponge, instrument and needle count correct at the end of the case. Anesthesia Type IV sedation by BOX CUTTER Estimated Blood Loss Estimated blood loss (mL): scant Specimens/Packing Specimens Removed 3000 ml ascitic fluid DUSTY HERRERA DO May 26, 2022 14:41
--- NOTE | 2022-05-26 14:42 | Discharge Inst-Surgical ---
Discharge Inst-Surgical Depart Medication/Instructions New, Converted or Re-Newed RX: Other (use home meds) Patient Instructions Follow up Appt: Make appointment for 1 week. [phone] Instructions: May shower in 24 hours, no tub bath or soaking. Use incentive spirometer at home as directed. No Smoking Skin/Wound Care: May remove bandages in am. You need to leave the catheter in place. Symptoms to Report: Appetite Changes, Extremity Discoloration, Numbness/Tingling, Swelling Increased, Bleeding Excessive, Eyesight Changes, Pain Increased, Urine Color Change, Constipation(Persistent), Fever over 101 degree F, Pain/Pressure in chest, Urinating Difficulty, Cough Up/Vomit Blood, Heart Beat Irreg/Pounding, Pain/Pressure in jaw, Cramps in feet or legs, Lightheadedness, Pain/Pressure in shoulder, Diarrhea(Persistent), Memory Changes Suddenly, Questions/Concerns, Weight gain consecutive days, Dizziness/Fainting, Nausea/Vomiting, Shortness of Breath, Weight gain over 2 pounds If questions or concerns contact your physician Or seek help at emergency department. Activity Activity Instructions: Avoid Stress to Incision Driving Instructions: No Driving/Refer to Dr. Hdez Discharge Diet: No Restrictions If Any Problems/Questions/Issu: Contact Your Physician, Go to Emergency Room Skin/Wound Care Infection Signs and Symptoms: Increased Redness, Foul Odor of Wound, Increased Drainage, Skin Itchy or Has a Rash, Increased Swelling, Temperature Above 101 F Bathing Instructions: DUSTY Stovall DO May 26, 2022 14:42
--- NOTE | 2022-05-26 14:49 | Anesthesia-General Post-Op ---
MAC Patient Condition Mental Status/LOC: Same as Preop Cardiovascular: Satisfactory Nausea/Vomiting: Absent Respiratory: Satisfactory Pain: Controlled Complications: Absent Post Op Complications Complications None Follow Up Care/Instructions Patient Instructions None needed. Anesthesiology Discharge Order Discharge Order Patient is doing well, no complaints, stable vital signs, no apparent adverse anesthesia problems. No complications reported per nursing. NIDIA RODRÍGUEZ CRNA May 26, 2022 14:49
[2022-05-26] MEDS ORDERED: morphine INJ 10 MG/ML 1ML (SYR OR VIAL) IVP ONE (15:00)
[2022-05-26] MEDS ORDERED: LACTATED RINGERS 1,000 ML IV PRN (17:15)
== END 2022-05-26 16:05 | disposition home or self-care (01) ==
LOC: SDC 11:08
PROVIDERS: ATTEND Surgery
DX: K72.90 Hepatic failure, unspecified without coma (principal); R18.8 Other ascites; F17.210 Nicotine dependence, cigarettes, uncomplicated
CPT/HCPCS: 32550; 87081; C1729

== ENCOUNTER → 2022-07-27 | Outpatient (CLI) | payer SELFPAY | END | disposition home or self-care (01) | LOC: PREOP 15:47 | PROVIDERS: ATTEND Surgery | DX: Z01.818 Encounter for other preprocedural examination (principal) ==

== ENCOUNTER 2022-07-28 10:31 | Day surgery (SDC) | payer SELFPAY ==
[~2022-07-28] VITALS: Ht 167.7 cm; Wt 45.8 kg
[2022-07-28] VITALS (8 sets, daily range): BP systolic 91–129; BP diastolic 67–81
[2022-07-28] MEDS ORDERED: ceFAZolin INJECTION 2,000 MG in NS (IVPB) 50 ML IV ONE (11:00)
[2022-07-28] MEDS ORDERED: LACTATED RINGERS 1,000 ML IV PRN (11:15)
[2022-07-28] MEDS ORDERED: PROPOFOL INJECTION 50 ML IV ONE (11:19)
[2022-07-28] MEDS ORDERED: LIDOCAINE/EPI 1%-1:100,000 (XYLOCAINE) 20ML ONE (11:30)
--- NOTE | 2022-07-28 11:50 | Discharge Inst-Surgical ---
Discharge Inst-Surgical Activity Activity as Tolerated: Yes Diet Discharge Diet: Other Diet (Liver Failure diet) Diet After 24 Hours: Clear Liquid if Nauseous If Any Problems/Questions/Issu: Contact Your Physician, Go to Emergency Room Skin/Wound Care Infection Signs and Symptoms: Increased Swelling, Temperature Above 101 F Bathing Instructions: DUSTY Evangelista DO Jul 28, 2022 11:50
--- NOTE | 2022-07-28 11:51 | Progress Note-Post Operative ---
Post-Operative Progess Note Surgeon (s)/Athletic Equipment Custodian (s) Surgeon DUSTY HERRERA DO Athletic Equipment Custodian: none Pre-Operative Diagnosis ascites Post-Operative Diagnosis same Procedure & Operative Findings Date of Procedure 07/28/22 Procedure Performed/Findings Attempted Pleur-X catheter placement Anesthesia Type IV sedation Estimated Blood Loss Estimated blood loss (mL): none Specimens/Packing Specimens Removed none Packin DUSTY HERRERA DO Jul 28, 2022 11:51
--- NOTE | 2022-07-28 16:50 | Diagnostic Imaging Report ---
PROCEDURE: US Abdomen, limited. TECHNIQUE: Multiple realtime grayscale images were obtained over the abdomen in various projections. INDICATION: Ascites. IMPRESSION: Limited ultrasound imaging of all 4 quadrants shows no ascites. Dictated by: Dictated on workstation # [id number]
--- NOTE | 2022-07-28 19:41 | OPERATIVE REPORT ---
DATE OF SERVICE: 07/28/2022 PREOPERATIVE DIAGNOSIS: Ascites. POSTOPERATIVE DIAGNOSIS: Ascites. PROCEDURE: Attempted PleurX catheter. SURGEON: Derek Morrison DO DIAPER FOLDER: None. ANESTHESIA: IV sedation. BLOOD LOSS: None. SPECIMENS: None. FLUIDS: Per anesthesia. INDICATIONS FOR PROCEDURE: The patient is a 61-year-old male who has end-stage liver failure. He is on hospice, had a PleurX catheter that unfortunately got accidentally pulled and wanted to get repeat. He is having trouble breathing, pain, abdominal distention. He was miserable. FINDINGS: Unfortunately, not enough fluid, not enough ascites in the abdomen to safely attempt a PleurX catheter, so the procedure was abandoned. DESCRIPTION OF PROCEDURE: After informed consent was obtained, the patient was brought to the operating room. He was placed on the table in supine position. He was sterilely prepped and draped. Using an ultrasound probe with a sterile cover, we then checked the abdomen and unfortunately did not find any good pockets, could see very well the intestine, could see stuff moving through the intestines, but there were no pockets to be able to attempt a PleurX catheter placement. Looked around, I looked even on the right side where he had it before, still no good spot, and at this point, I elected to just cancel the procedure. The patient was taken to recovery room in stable condition. Job ID: [id number] DocumentID: [id number] Dictated Date: 07/28/2022 11:49:07 Embedded Systems Engineer Date: 07/28/2022 19:39:00 Dictated By: DEREK MORRISON DO
--- NOTE | 2022-07-31 10:51 | Anesthesia-General Post-Op ---
MAC Patient Condition Mental Status/LOC: Same as Preop Cardiovascular: Satisfactory Nausea/Vomiting: Absent Respiratory: Satisfactory Pain: Controlled Complications: Absent Post Op Complications Complications None Follow Up Care/Instructions Patient Instructions None needed. Anesthesiology Discharge Order Discharge Order Post-dated progress note: Patient was seen on 07-28-22 at approximately 1220 in PACU and he was doing well, no complaints, stable vital signs, no apparent adverse anesthesia problems. No complications reported per nursing. ISABELLA GUPTA DO Jul 31, 2022 10:51
== END 2022-07-28 13:30 | disposition home or self-care (01) ==
LOC: SDC 10:31
PROVIDERS: ATTEND Surgery
DX: R18.8 Other ascites (principal)
CPT/HCPCS: 76705; 87081

== ENCOUNTER 2022-08-09 17:26 | Emergency (ER) | payer SELFPAY | END 2022-08-09 18:03 | disposition left against medical advice (07) | LOC: EDUNIT# 17:26 → ER 17:28 | DX: R04.2 Hemoptysis (principal) ==